=== PATIENT | male | born 1955 | race American Indian/Alaskan Native ===

== ENCOUNTER 2020-08-12 23:07 | Inpatient (IN) | payer MEDICAID ==
[2020-08-12] MEDS ORDERED: dilTIAZem 25 MG/5 ML INJ IV ONE (23:22)
[2020-08-12] MEDS ORDERED: SODIUM CHLORIDE 0.9% 1000 ML 1,000 ML IV ONE (23:25)
--- NOTE | 2020-08-12 23:27 | Emergency Department Report ---
ED Chest Pain HPI - General Chief Complaint: Chest Pain Stated Complaint: HYPOTENSION/HYPROGLYCEMIA/CHEST PAIN PUI?: No Time Seen by Provider: 08/12/20 23:07 Source: patient, EMS, RN notes reviewed Mode of arrival: Ambulatory Limitations: No Limitations - History of Present Illness Initial Comments: Patient is a 65-year-old male who presents emergency room with complaints of shortness of breath and chest pain. Patient states his symptoms started yesterday. Patient states his chest pain and shortness of breath are better wi th rest and worse with exertion. Patient states he has a history of an NC. Patient states the chest pain is in the center of his chest. Patient states the chest pain is nonradiating. He states the chest pain is a 6 out of 10. Patient was brought in by EMS. Report received from EMS. EMS states that the patient was found to be hypotensive and tachycardic and hypoglycemia. Patient was given fluids and his blood pressure improved. Patient was given oral glucose and D50 and his sugar improved. Patient denies recent travel. Patient denies recent international travel. Patient denies exposure to the novel coronavirus. Patient denies sick contacts. Patient denies fever and chills. Patient denies cough. Patient denies diarrhea. Patient denies coming in contact with anybody with symptoms of the novel coronavirus. MD Complaint: chest pain -: Sudden Onset: during rest Pain Location: substernal, left chest Pain Radiation: none Severity scale (0 -10): 6 Quality: sharp Consistency: constant Improves With: rest Worsens With: exertion re: dyspnea. denies: nausea, vomting, diaphoresis, sense of impending doom Other Symptoms: denies: cough, fever, syncope, rash, acid taste in mouth, leg swelling, palpitations, burping Treatments Prior to Arrival: aspirin, nitroglycerin, other (Fluids and oral glucose) Aspirin use within the Past 7 Days: (1) Yes - Related Data On Oral Contraceptives: No Allergies Allergy/AdvReac Type Severity Reaction Status Date / Time No Known Allergies Allergy Unverified 08/12/20 23:21 Heart Score - HEART Score History: Highly suspicious EKG: Non-specific Age: 45-65 Risk factors: > 3 risk factors or hx of atherosclerotic disease Troponin: > 3x normal limit HEART Score: 8 ED Review of Systems ROS: Stated complaint: HYPOTENSION/HYPROGLYCEMIA/CHEST PAIN Other details as noted in HPI Constitutional: denies: chills, fever Eyes: denies: eye pain, eye discharge, vision change ENT: denies: ear pain, throat pain Respiratory: shortness of breath, SOB with exertion, SOB at rest. denies: cough, wheezing Cardiovascular: chest pain. denies: palpitations Endocrine: no symptoms reported Gastrointestinal: denies: abdominal pain, nausea, diarrhea Genitourinary: denies: urgency, dysuria Musculoskeletal: denies: back pain, joint swelling, arthralgia Skin: denies: rash, lesions Neurological: denies: headache, weakness, paresthesias Psychiatric: denies: anxiety, depression Hematological/Lymphatic: denies: easy bleeding, easy bruising ED Past Medical Hx - Past Medical History Previous Medical History?: Yes Hx Hypertension: Yes Hx Heart Attack/AMI: Yes Hx Congestive Heart Failure: Yes Hx Diabetes: No Hx Renal Disease: Yes (esrd) - Surgical History Past Surgical History?: Yes Additional Surgical History: Dialysis fistula - Family History Family history: no significant - Social History Smoking Status: Former Smoker Substance Use Type: None ED Physical Exam - General Limitations: No Limitations General appearance: alert, in distress - Head Head exam: Present: atraumatic, normocephalic - Eye Eye exam: Present: normal appearance, PERRL Pupils: Present: normal accommodation - ENT ENT exam: Present: mucous membranes moist - Neck Neck exam: Present: normal inspection - Respiratory Respiratory exam: Present: respiratory distress, accessory muscle use, decreased breath sounds. Absent: wheezes, rales - Cardiovascular Cardiovascular Exam: Present: regular rate, normal rhythm. Absent: systolic murmur, diastolic murmur, rubs, gallop - GI/Abdominal GI/Abdominal exam: Present: soft, normal bowel sounds. Absent: distended, tenderness, guarding - Rectal Rectal exam: Present: deferred - Extremities Exam Extremities exam: Present: normal inspection - Back Exam Back exam: Present: normal inspection - Neurological Exam Neurological exam: Present: alert, oriented X3 - Psychiatric Psychiatric exam: Present: normal affect, normal mood - Skin Skin exam: Present: warm, dry, intact, normal color. Absent: rash ED Course Vital Signs 08/12/20 08/12/20 08/12/20 23:08 23:19 23:21 Temperature 98.2 F Pulse Rate 149 H 125 H Respiratory 32 H 31 H Rate Blood Pressure O2 Sat by Pulse 94 Oximetry 08/12/20 08/12/20 08/13/20 23:22 23:28 01:03 Temperature Pulse Rate 139 H 130 H 112 H Respiratory 34 H Rate Blood Pressure 100/47 100/47 97/58 O2 Sat by Pulse 91 Oximetry - Reevaluation(s) Reevaluation #1: Initial evaluation done. Report received from EMS. EMS states they gave the patient 200 cc of fluid and his blood pressure got better. Patient is currently in A. fib RVR on the hay sorter. Patient will be given Cardizem drip and a Cardizem push. Patient found to be hypoxic. Patient placed on oxygen. Patient's blood pressure 100/80. 08/12/20 23:07 Reevaluation #2: Patient became hypotensive after Cardizem push.. Patient's started on fluids. Patient's heart rate normalized. Patient is currently 75 to 85 bpm. Patient's hypoxia has resolved with 3 L of oxygen. Patient's blood pressure is slowly improving 08/12/20 23:17 Reevaluation #3: Patient states he is chest pain-free. Patient dates he is feeling better. 08/12/20 23:38 Patient's blood pressure is decreasing again. Patient will be placed on peripheral Levophed. Patient said fluids will be given to him slowly due to his history of kidney disease and renal failure and dialysis and CHF. 08/12/20 23:45 Patient's blood pressure has improved. Patient is having increased work of breathing. Patient will be placed on BiPAP. 08/13/20 00:07 Reevaluation #4: Patient is on BiPAP and patient's oxygen is better. Patient's breathing is better. Patient's work to breathe has resolved. Patient's blood pressure is stabilizing and patient's current map is 70. Patient heart rate is 90-100. 08/13/20 00:36 Reevaluation #5: Patient's A. fib RVR came back and the patient was placed on a low-dose of Cardizem and the heart rate responded well. Patient's blood pressure still shows a map of 69. Patient will be started on maintenance fluids. 08/13/20 01:17 Patient given 100 cc of fluid and the patient's map is 72. Patient has a Levophed order on hold. His heart rate is better. I discussed all results with patient. I discussed plan of care with patient. Patient agrees with plan of care and admission. Patient to be admitted to the hospitalist service. 08/13/20 01:40 Patient on maintenance fluid and the patient's blood pressures 99/61. Patient is still on Cardizem 5 mg drip. Patient's oxygen is stable. Patient's work to breathe has decreased. 08/13/20 01:57 - Consultations Consultation #1: Hospitalist consulted for admission. Hospitalist to admit patient. 08/13/20 01:41 IDALIA score - Idalia Score Age > 65: (0) No Aspirin use within the Past 7 Days: (1) Yes 3 or more CAD Risk Factors: (1) Yes 2 or more Angina events in past 24 hrs: (1) Yes Known CAD with more than 50% Stenosis: (0) No Elevated Cardiac Markers: (1) Yes ST Deviation Greater than 0.5mm: (0) No IDALIA Score: 4 ED Medical Decision Making - Lab Data Result diagrams: 08/13/20 00:04 08/13/20 00:04 - EKG Data -: EKG Interpreted by Vt EKG shows normal: intervals, QRS complexes, ST-T waves Rate: tachycardia - EKG Data Interpretation: LVH, other (Atrophic, axis deviation, LVH) - Radiology Data Radiology results: report reviewed CHEST 1 VIEW INDICATION / CLINICAL INFORMATION: Chest Pain. COMPARISON: None available. FINDINGS: SUPPORT DEVICES: None. HEART / MEDIASTINUM: There is prominence of the cardiac silhouette. Atherosclerotic calcifications are noted in the aortic arch LUNGS / PLEURA: There is airspace consolidation in the left mid and lower lung zone. There appears to be left pleural effusion as well. There is mild patchy airspace opacity in the right lung base. No pneumothorax. ADDITIONAL FINDINGS: No significant additional findings. IMPRESSION: 1. There is airspace consolidation in the left mid and lower lung zone with probable small left effusion. There is mild patchy airspace opacity in the right base. The appearance is most concerning for pneumonia. Short-term follow-up radiographs are recommended to ensure clearing of the lungs. - Medical Decision Making Patient is a 65-year-old male that presents emergency room with complaints of chest pain, shortness of breath. Patient brought in by EMS. EMS found the patient to be hypotensive, hypoglycemic. Patient given fluids and the patient's blood pressure responded well. Patient was given nitro by EMS, aspirin, fluids, glucose. Patient's glucose improved. Upon initial evaluation, patient found to be hypoxic, hypotensive, A. fib RVR. Patient given fluids and placed on oxygen. Patient's blood pressure eventually improved however the patient's work to breathe respiratory distress increased and the patient was placed on BiPAP. Patient responded well to BiPAP. Patient was given 500 cc of fluids by EMS and then given a liter of fluid here. Patient was then started on a second liter of fluid here and will be given slowly since the patient has a history of CHF and end-stage renal disease. Patient given antibiotics early in the ER course. . - Differential Diagnosis Pneumonia, sepsis, hypoxia, hypotension, chest pain, ACS, SOB Critical Care Time: Yes Critical care time in (mins) excluding proc time.: 80 Critical care attestation.: If time is entered above; I have spent that time in minutes in the direct care of this critically ill patient, excluding procedure time. Critical Care Time: 80 minutes ED Disposition Clinical Impression: Hypoxia, SOB (shortness of breath), Atrial fibrillation with RVR, Hypoglycemia, ESRD (end stage renal disease) on dialysis, Lactic acid acidosis, Elevated troponin Respiratory failure Qualifiers: Chronicity: acute Respiratory failure complication: hypoxia Qualified Code(s): J96.01 - Acute respiratory failure with hypoxia Pneumonia Qualifiers: Pneumonia type: due to unspecified organism Laterality: unspecified laterality Lung location: unspecified part of lung Qualified Code(s): J18.9 - Pneumonia, unspecified organism Chest pain Qualifiers: Chest pain type: unspecified Qualified Code(s): R07.9 - Chest pain, unspecified Hypotension Qualifiers: Hypotension type: unspecified hypotension type Qualified Code(s): I95.9 - Hypotension, unspecified Sepsis Qualifiers: Sepsis type: sepsis due to unspecified organism Sepsis acute organ dysfunction status: with acute organ dysfunction Severe sepsis acute organ dysfunction type: acute respiratory failure Acute respiratory failure type: with hypoxia Severe sepsis shock status: without septic shock Qualified Code(s): A41.9 - Sepsis, unspecified organism Disposition: OP ADMIT IP TO THIS HOSP Is pt being admited?: Yes Does the pt Need Aspirin: No Condition: Critical Time of Disposition: :23
[2020-08-12] MEDS ORDERED: NORepinephrine/NS 4 MG-250 ML 4 MG/250 ML BAG IV SCH (23:45)
[2020-08-12] MEDS ORDERED: dilTIAZem/D5W 100 MG/100 ML BAG IV SCH (23:45)
[2020-08-13] MEDS ORDERED: CEFEPIME/NS 2 GM/100 ML 2 GM/100 ML BAG IV ONE (00:07)
[2020-08-13 00:24] LABS: Hematocrit 35.6 % (35.5-45.6); Mean Corpuscular HGB Conc 34 % (32-34); Mean Corpuscular Volume 99 fl (84-94); Red Blood Count 3.59 M/mm3 (3.65-5.03); Red Cell Distribution Width 16.8 % (13.2-15.2)
--- NOTE | 2020-08-13 00:26 | XRay Report ---
CHEST 1 VIEW INDICATION / CLINICAL INFORMATION: Chest Pain. COMPARISON: None available. FINDINGS: SUPPORT DEVICES: None. HEART / MEDIASTINUM: There is prominence of the cardiac silhouette. Atherosclerotic calcifications ar e noted in the aortic arch LUNGS / PLEURA: There is airspace consolidation in the left mid and lower lung zone. There appears to be left pleural effusion as well. There is mild patchy airspace opacity in the right lung base. No p neumothorax. ADDITIONAL FINDINGS: No significant additional findings. IMPRESSION: 1. There is airspace consolidation in the left mid and lower lung zone with probable small left effus ion. There is mild patchy airspace opacity in the right base. The appearance is most concerning for p neumonia. Short-term follow-up radiographs are recommended to ensure clearing of the lungs. Signer Name: Adiel Castillo MD Signed: 08/13/2020 12:21 AM Workstation Name: [id number]
[2020-08-13 00:29] LABS: Platelet Count 84 K/mm3 (140-440)
[2020-08-13 00:43] LABS: Albumin 3.3 g/dL (3.9-5); Calcium 8.5 mg/dL (8.4-10.2)
[2020-08-13] MEDS ORDERED: SODIUM CHLORIDE 0.9% 500 ML 500 ML IV ONE (01:22)
[2020-08-13] MEDS ORDERED: SODIUM CHLORIDE 0.9% 1000 ML 1,000 ML IV ONE (01:22)
[2020-08-13] MEDS ORDERED: ONDANSETRON 4 MG/2 ML INJ IV PRN (02:14)
[2020-08-13] MEDS ORDERED: MORPHINE 2 MG/1 ML INJ IV PRN ×2 (02:14→06:46)
[2020-08-13] MEDS ORDERED: MAGNESIUM HYDROXIDE (MOM) ORAL LIQD UDC PO PRN (02:14)
[2020-08-13] MEDS ORDERED: SODIUM CHLORIDE 0.9% 1000 ML 1,000 ML IV SCH ×2 (02:15→04:00)
[2020-08-13] MEDS ORDERED: DEXTROSE 50% IN WATER (25GM) 50 ML SYRINGE IV ONE ×2 (02:23→02:26)
--- NOTE | 2020-08-13 02:24 | History and Physical Report ---
History of Present Illness Date of examination: 08/13/20 Date of admission: 08/13/20 01:43 Chief complaint: Chest Pain Shortness of Breath History of present illness: 65-year-old male with known history of CHF, end-stage renal disease on dialysis, coronary artery disease and hypertension presenting to the emergency room via EMS today with chest pain and shortness of breath which started within the last 24 hours. Chest pain is said to be substernal and nonradiating. On a scale of 10 pain was about 6/10 in severity. No no relieving or exacerbating factor. Upon arrival in the emergency room patient was found to be hypoxic, hypotensive, hypoglycemic and tachycardic. Patient was given some IV fluid and placed on BiPAP with some improvement in her breathing and blood pressure. Evaluation in the emergency room reveals atrial fibrillation with RVR, pneumonia on the chest x-ray. Patient was started on Cardizem drip for his arrhythmia. Past History Past Medical History: CAD, dialysis, ESRD, heart failure, hypertension Past Surgical History: Other (A-V fistula placement) Social history: smoking (Former Smoker) Family history: no significant family history Medications and Allergies Allergies Allergy/AdvReac Type Severity Reaction Status Date / Time No Known Allergies Allergy Unverified 08/12/20 23:21 Active Meds: Active Medications Diltiazem HCl (Cardizem/D5w 100mg/100ml) 100 mg in 100 mls @ 5 mls/hr IV TITR AMALIA; Protocol Last Admin: 08/13/20 01:03 Dose: 5 mg/hr, 5 mls/hr Documented by: Norepinephrine (Levophed Drip 4 Mg/Ns 250 Ml) 4 mg in 250 mls @ 7.5 mls/hr IV TITR AMALIA; Protocol Sodium Chloride (Nacl 0.9% 1000 Ml) 1,000 mls @ 250 mls/hr IV ONCE ONE Stop: 08/13/20 05:21 Last Admin: 08/13/20 02:02 Dose: 250 mls/hr Documented by: Review of Systems Constitutional: no fever, no chills Ears, nose, mouth and throat: no nasal congestion, no sore throat Cardiovascular: chest pain, no palpitations Respiratory: shortness of breath, no cough Gastrointestinal: no abdominal pain, no nausea, no vomiting, no diarrhea Genitourinary Male: no dysuria, no hematuria, no nocturia Musculoskeletal: no neck pain, no low back pain Integumentary: no rash, no pruritis Neurological: no headaches, no confusion Psychiatric: no anxiety, no depression Exam - Constitutional Vitals: Temp Pulse Resp BP Pulse Ox 98.2 F 92 H 26 H 101/66 100 08/12/20 23:08 08/13/20 02:00 08/13/20 02:00 08/13/20 02:00 08/13/20 01:45 General appearance: Present: mild distress, well-nourished - EENT Eyes: Present: PERRL, EOM intact. Absent: scleral icterus ENT: hearing intact, clear oral mucosa, dentition normal - Neck Neck: Present: supple, normal ROM - Respiratory Respiratory effort: normal Respiratory: bilateral: diminished - Cardiovascular Rhythm: irregularly irregular Heart Sounds: Present: S1 & S2. Absent: gallop, systolic murmur, diastolic murmur, rub - Extremities Extremities: no ischemia, pulses intact, pulses symmetrical, No edema, Full ROM Peripheral Pulses: within normal limits - Abdominal General gastrointestinal: Present: soft, non-tender, non-distended, normal bowel sounds. Absent: mass - Integumentary Integumentary: Present: clear, warm, dry. Absent: rash - Musculoskeletal Musculoskeletal: strength equal bilaterally - Psychiatric Psychiatric: appropriate mood/affect, intact judgment & insight, memory intact, cooperative - Neurologic Neurologic: CNII-XII intact, no focal deficits, moves all extremities HEART Score - HEART Score EKG: Non-specific Age: 45-65 Risk factors: > 3 risk factors or hx of atherosclerotic disease Troponin: Troponin T 0.049 ng/mL (0.00-0.029) H 08/13/20 00:04 Troponin: > 3x normal limit Results - Labs CBC & Chem 7: 08/13/20 00:04 08/13/20 00:04 Labs: Abnormal lab results 08/13/20 08/13/20 08/13/20 Range/Units 00:04 00:04 00:04 RBC 3.59 L (3.65-5.03) M/mm3 MCV 99 H (84-94) fl MCH 33 H (28-32) pg RDW 16.8 H (13.2-15.2) % Plt Count 84 L (140-440) K/mm3 Chloride 95.1 L (98-107) mmol/L Carbon Dioxide 18 L (22-30) mmol/L BUN 44 H (9-20) mg/dL Creatinine 7.0 H (0.8-1.3) mg/dL Glucose 66 L (75-100) mg/dL POC Glucose (70-105) Lactic Acid (0.7-2.0) mmol/L Alkaline Phosphatase 34 L (35-129) units/L Troponin T 0.049 H (0.00-0.029) ng/mL NT-Pro-B Natriuret Pep 85895 H (0-900) pg/mL Albumin 3.3 L (3.9-5) g/dL 08/13/20 08/13/20 Range/Units 00:04 02:32 RBC (3.65-5.03) M/mm3 MCV (84-94) fl MCH (28-32) pg RDW (13.2-15.2) % Plt Count (140-440) K/mm3 Chloride (98-107) mmol/L Carbon Dioxide (22-30) mmol/L BUN (9-20) mg/dL Creatinine (0.8-1.3) mg/dL Glucose (75-100) mg/dL POC Glucose 65 L (70-105) Lactic Acid 6.10 H* (0.7-2.0) mmol/L Alkaline Phosphatase (35-129) units/L Troponin T (0.00-0.029) ng/mL NT-Pro-B Natriuret Pep (0-900) pg/mL Albumin (3.9-5) g/dL Assessment and Plan - Patient Problems (1) Respiratory failure Current Visit: Yes Status: Acute Qualifiers: Chronicity: acute Respiratory failure complication: hypoxia Qualified Code(s): J96.01 - Acute respiratory failure with hypoxia Plan to address problem: Possibly secondary to the underlying pneumonia. Patient commenced on empiric IV antibiotics. We will keep O2 saturation greater or equal to 92%. We will place consult to air hose coupler for evaluation. (2) Atrial fibrillation with RVR Current Visit: Yes Status: Acute Plan to address problem: Patient currently on Cardizem drip. Will titrate according to protocol. We will request cardiology evaluation. (3) ESRD (end stage renal disease) on dialysis Current Visit: Yes Status: Acute Plan to address problem: Patient gets dialysis on Mondays, Wednesdays and Fridays. We will place a consult to nephrology for evaluation during this admission. (4) Hypotension Current Visit: Yes Status: Acute Qualifiers: Hypotension type: unspecified hypotension type Qualified Code(s): I95.9 - Hypotension, unspecified Plan to address problem: Secondary to severe sepsis. Patient placed on IV fluid. We will consider pressors if needed needed (5) Sepsis Current Visit: Yes Status: Acute Qualifiers: Sepsis type: sepsis due to unspecified organism Sepsis acute organ dysfunction status: with acute organ dysfunction Severe sepsis acute organ dysfunction type: acute respiratory failure Acute respiratory failure type: with hypoxia Severe sepsis shock status: without septic shock Qualified Code(s): A41.9 - Sepsis, unspecified organism; R65.20 - Severe sepsis without septic shock; J96.01 - Acute respiratory failure with hypoxia Plan to address problem: Secondary to pneumonia. We will continue IV fluid and empiric IV antibiotics. (6) Chest pain Current Visit: Yes Status: Acute Qualifiers: Chest pain type: unspecified Qualified Code(s): R07.9 - Chest pain, unspecified Plan to address problem: We will check serial cardiac enzymes. Patient will be placed on aspirin, sublingual nitroglycerin and IV morphine as needed for chest pain. We will place consult to cardiology for further evaluation and recommendation. (7) DVT prophylaxis Current Visit: Yes Status: Acute (8) Full code status Current Visit: Yes Status: Acute
[2020-08-13 02:48] LABS: Chol/HDL Ratio 1.62 %
[2020-08-13 03:24] LABS: Band Neutrophils # (Manual) 0.6 K/mm3; Basophils % (Manual) 0 % (0.0-1.8); Eosinophils % (Manual) 0 % (0.0-4.3); Total Cells Counted 100
[2020-08-13 03:25] LABS: Anisocytosis 1+; Ovalocytes 1+
[2020-08-13 03:27] LABS: Platelet Estimate Consistent w Auto
[2020-08-13] MEDS ORDERED: CEFEPIME/NS 2 GM/100 ML 2 GM/100 ML BAG IV SCH (06:00)
[2020-08-13] MEDS ORDERED: HEPARIN 5,000 UNIT/1 ML VIAL SUB-Q SCH (06:00)
[2020-08-13] MEDS ORDERED: NITROGLYCERIN 0.4 MG TAB SUBL SL PRN (06:46)
[2020-08-13 09:29] LABS: Hematocrit 36.4 % (35.5-45.6); Hemoglobin 11.8 gm/dl (11.8-15.2); Mean Corpuscular HGB Conc 32 % (32-34); Mean Corpuscular Volume 105 fl (84-94); Red Blood Count 3.47 M/mm3 (3.65-5.03); Red Cell Distribution Width 17.8 % (13.2-15.2)
--- NOTE | 2020-08-13 09:29 | Consultation ---
History of Present Illness Consult date: 08/13/20 Consult reason: atrial fibrillation History of present illness: Patient is lying in bed this morning, having breakfast. Patient denies chest pain. Patient reports shortness of breath and productive cough. Patient is known ESRD on HD. Tele showing atrial flutter with 2:1 AV conduction. Admission ECG revealing atrial fibrillation with HR 110. Patient is currently on OV diltiazem at 5 mg/hr. Patient under respiratory precautions due to Covid 19 PUI - results are pending. Patient therefore was not examined. Past History Past Medical History: CAD, dialysis, ESRD, heart failure, hypertension Past Surgical History: Other (A-V fistula placement) Social history: smoking (Former Smoker) Family history: no significant family history Medications and Allergies Allergies Allergy/AdvReac Type Severity Reaction Status Date / Time No Known Allergies Allergy Unverified 08/12/20 23:21 Active Meds: Active Medications Acetaminophen (Tylenol) 650 mg PO Q6H PRN PRN Reason: Pain, Mild (1-3) Aspirin (Ecotrin) 325 mg PO QDAY AMALIA Heparin Sodium (Porcine) (Heparin) 5,000 unit SUB-Q Q8HR AMALIA Last Admin: 08/13/20 08:37 Dose: 5,000 unit Documented by: Diltiazem HCl (Cardizem/D5w 100mg/100ml) 100 mg in 100 mls @ 5 mls/hr IV TITR AMALIA; Protocol Last Admin: 08/13/20 01:03 Dose: 5 mg/hr, 5 mls/hr Documented by: Norepinephrine (Levophed Drip 4 Mg/Ns 250 Ml) 4 mg in 250 mls @ 7.5 mls/hr IV TITR AMALIA; Protocol Sodium Chloride (Nacl 0.9% 1000 Ml) 1,000 mls @ 75 mls/hr IV DIRECT AMALIA Cefepime HCl (Cefepime/Ns 1 Gm/100 Ml) 1 gm in 100 mls @ 200 mls/hr IV Q24HR AMALIA Sodium Chloride (Nacl 0.9% 1000 Ml) 1,000 mls @ 125 mls/hr IV DIRECT AMALIA Magnesium Hydroxide (Milk Of Magnesia) 30 ml PO Q4H PRN PRN Reason: Constipation Morphine Sulfate (Morphine) 2 mg IV Q4H PRN PRN Reason: Pain, Moderate (4-6) Morphine Sulfate (Morphine) 2 mg IV Q5MIN PRN PRN Reason: Chest Pain Nitroglycerin (Nitrostat) 0.4 mg SL Q5M PRN PRN Reason: Chest Pain Ondansetron HCl (Zofran) 4 mg IV Q8H PRN PRN Reason: Nausea And Vomiting Pneumococcal Polyvalent Vaccine (Pneumovax 23) 0.5 ml IM .ONCE ONE Stop: 08/13/20 12:01 Sodium Chloride (Sodium Chloride Flush Syringe 10 Ml) 10 ml IV BID AMALIA Sodium Chloride (Sodium Chloride Flush Syringe 10 Ml) 10 ml IV PRN PRN PRN Reason: LINE FLUSH Review of Systems All systems: negative Physical Examination Vital Signs Temp 98.2 F 08/12/20 23:08 General appearance: no acute distress Results 08/13/20 00:04 08/13/20 00:04 Cardiac Enzymes 08/13/20 Range/Units 00:04 AST 24 (5-40) units/L Coagulation 08/13/20 Range/Units 00:04 APTT 35.7 (24.2-36.6) Sec. Lipids 08/13/20 Range/Units 00:04 Triglycerides 99 (2-149) mg/dL Cholesterol 83 (50-199) mg/dL HDL Cholesterol 51 (40-59) mg/dL Cholesterol/HDL Ratio 1.62 % CBC 08/13/20 Range/Units 00:04 WBC 6.3 (4.5-11.0) K/mm3 RBC 3.59 L (3.65-5.03) M/mm3 Hgb 12.0 (11.8-15.2) gm/dl Hct 35.6 (35.5-45.6) % Plt Count 84 L (140-440) K/mm3 Comprehensive Metabolic Panel 08/13/20 Range/Units 00:04 Sodium 137 (137-145) mmol/L Potassium 3.7 (3.6-5.0) mmol/L Chloride 95.1 L (98-107) mmol/L Carbon Dioxide 18 L (22-30) mmol/L BUN 44 H (9-20) mg/dL Creatinine 7.0 H (0.8-1.3) mg/dL Glucose 66 L (75-100) mg/dL Calcium 8.5 (8.4-10.2) mg/dL AST 24 (5-40) units/L ALT 11 (7-56) units/L Alkaline Phosphatase 34 L (35-129) units/L Total Protein 7.6 (6.3-8.2) g/dL Albumin 3.3 L (3.9-5) g/dL - EKG Interpretation EKG shows: atrial fibrillation EKG interpretations - Telemetry EKG Rhythm: Atrial Fibrillation Assessment and Plan Severe septic shock Lactic acidosis Pneumonia Covid 19 pending ESRD on HD Non-specific troponin No ischemic ECG changes Essential primary hypertension Recommendations: Continue rate control Change IV diltiazem to po Initiate anticoagulation with IV heparin and later on transition to po eliquis if no invasive procedures are planned or needed Follow-up Covid 19 testing
[2020-08-13 09:32] LABS: Platelet Count 72 K/mm3 (140-440)
[2020-08-13 09:42] LABS: C-Reactive Protein 28.7 mg/dL (0.00-1.30)
[2020-08-13] MEDS: CEFEPIME/NS 1 GM/100 ML 1 GM/100 ML BAG IV SCH (09:47)
--- NOTE | 2020-08-13 09:51 | Progress Note ---
Assessment and Plan Assessment and plan: This is a follow-up from an admission earlier this morning. Continue rate control with IV Cardizem. Cardiology following. Patient will be initiated on anticoagulation with IV heparin and transition to p.o. Eliquis. Follow-up COVID-19 testing total visit time equals 35 minutes with greater than 50% spent on coordination of care and counseling History Interval history: No new issues overnight. Hospitalist Physical - Constitutional Vitals: Temp Pulse Resp BP Pulse Ox 97.6 F 103 H 33 H 119/75 91 08/13/20 07:42 08/13/20 09:20 08/13/20 09:20 08/13/20 09:20 08/13/20 09:20 General appearance: Present: no acute distress - EENT Eyes: Present: PERRL, EOM intact ENT: hearing intact, clear oral mucosa, dentition normal - Neck Neck: Present: supple, normal ROM - Respiratory Respiratory effort: normal Respiratory: bilateral: CTA - Cardiovascular Rhythm: regular Heart Sounds: Present: S1 & S2. Absent: gallop, rub - Extremities Extremities: no ischemia, No edema, Full ROM - Abdominal General gastrointestinal: soft, non-tender, non-distended, normal bowel sounds - Integumentary Integumentary: Present: clear, warm, dry - Neurologic Neurologic: CNII-XII intact, moves all extremities HEART Score - HEART Score EKG: Non-specific Age: 45-65 Risk factors: > 3 risk factors or hx of atherosclerotic disease Troponin: Troponin T 0.057 ng/mL (0.00-0.029) H D 08/13/20 06:14 Troponin: > 3x normal limit Results - Labs CBC & Chem 7: 08/13/20 08:41 08/13/20 08:41 Labs: Laboratory Last Values WBC 5.4 K/mm3 (4.5-11.0) 08/13/20 08:41 RBC 3.47 M/mm3 (3.65-5.03) L 08/13/20 08:41 Hgb 11.8 gm/dl (11.8-15.2) 08/13/20 08:41 Hct 36.4 % (35.5-45.6) 08/13/20 08:41 MCV 105 fl (84-94) H 08/13/20 08:41 MCH 34 pg (28-32) H 08/13/20 08:41 MCHC 32 % (32-34) 08/13/20 08:41 RDW 17.8 % (13.2-15.2) H 08/13/20 08:41 Plt Count 72 K/mm3 (140-440) L 08/13/20 08:41 Add Manual Diff Complete 08/13/20 00:04 Total Counted 100 08/13/20 00:04 Seg Neutrophils % [employer] D[employer] Mixer 08/13/20 08:41 Seg Neuts % (Manual) 84.0 % (40.0-70.0) H 08/13/20 00:04 Band Neutrophils % 10.0 % 08/13/20 00:04 Lymphocytes % (Manual) 2.0 % (13.4-35.0) L 08/13/20 00:04 Reactive Lymphs % (Man) 0 % 08/13/20 00:04 Monocytes % (Manual) 4.0 % (0.0-7.3) 08/13/20 00:04 Eosinophils % (Manual) 0 % (0.0-4.3) 08/13/20 00:04 Basophils % (Manual) 0 % (0.0-1.8) 08/13/20 00:04 Metamyelocytes % 0 % 08/13/20 00:04 Myelocytes % 0 % 08/13/20 00:04 Promyelocytes % 0 % 08/13/20 00:04 Blast Cells % 0 % 08/13/20 00:04 Nucleated RBC % Not Reportable 08/13/20 00:04 Seg Neutrophils # Man 5.3 K/mm3 (1.8-7.7) 08/13/20 00:04 Band Neutrophils # 0.6 K/mm3 08/13/20 00:04 Lymphocytes # (Manual) 0.1 K/mm3 (1.2-5.4) L 08/13/20 00:04 Abs React Lymphs (Man) 0.0 K/mm3 08/13/20 00:04 Monocytes # (Manual) 0.3 K/mm3 (0.0-0.8) 08/13/20 00:04 Eosinophils # (Manual) 0.0 K/mm3 (0.0-0.4) 08/13/20 00:04 Basophils # (Manual) 0.0 K/mm3 (0.0-0.1) 08/13/20 00:04 Metamyelocytes # 0.0 K/mm3 08/13/20 00:04 Myelocytes # 0.0 K/mm3 08/13/20 00:04 Promyelocytes # 0.0 K/mm3 08/13/20 00:04 Blast Cells # 0.0 K/mm3 08/13/20 00:04 WBC Morphology Not Reportable 08/13/20 00:04 Hypersegmented Neuts Not Reportable 08/13/20 00:04 Hyposegmented Neuts Not Reportable 08/13/20 00:04 Hypogranular Neuts Not Reportable 08/13/20 00:04 Smudge Cells Not Reportable 08/13/20 00:04 Toxic Granulation Not Reportable 08/13/20 00:04 Toxic Vacuolation Not Reportable 08/13/20 00:04 Dohle Bodies Not Reportable 08/13/20 00:04 Pelger-Huet Anomaly Not Reportable 08/13/20 00:04 Elian Rods Not Reportable 08/13/20 00:04 Platelet Estimate Consistent w auto 08/13/20 00:04 Clumped Platelets Not Reportable 08/13/20 00:04 Plt Clumps, EDTA Not Reportable 08/13/20 00:04 Large Platelets Not Reportable 08/13/20 00:04 Giant Platelets Not Reportable 08/13/20 00:04 Platelet Satelliting Not Reportable 08/13/20 00:04 Plt Morphology Comment Not Reportable 08/13/20 00:04 RBC Morphology Not Reportable 08/13/20 00:04 Dimorphic RBCs Not Reportable 08/13/20 00:04 Polychromasia Not Reportable 08/13/20 00:04 Hypochromasia Not Reportable 08/13/20 00:04 Poikilocytosis Not Reportable 08/13/20 00:04 Anisocytosis 1+ 08/13/20 00:04 Microcytosis Not Reportable 08/13/20 00:04 Macrocytosis Not Reportable 08/13/20 00:04 Spherocytes Not Reportable 08/13/20 00:04 Pappenheimer Bodies Not Reportable 08/13/20 00:04 Sickle Cells Not Reportable 08/13/20 00:04 Target Cells Not Reportable 08/13/20 00:04 Tear Drop Cells Not Reportable 08/13/20 00:04 Ovalocytes 1+ 08/13/20 00:04 Helmet Cells Not Reportable 08/13/20 00:04 [place]-Busby Bodies Not Reportable 08/13/20 00:04 [place] Rings Not Reportable 08/13/20 00:04 [place] Cells Not Reportable 08/13/20 00:04 Bite Cells Not Reportable 08/13/20 00:04 Crenated Cell Not Reportable 08/13/20 00:04 Elliptocytes Not Reportable 08/13/20 00:04 Acanthocytes (Spur) Not Reportable 08/13/20 00:04 Rouleaux Not Reportable 08/13/20 00:04 Hemoglobin C Crystals Not Reportable 08/13/20 00:04 Schistocytes Not Reportable 08/13/20 00:04 Malaria parasites Not Reportable 08/13/20 00:04 Raza Bodies Not Reportable 08/13/20 00:04 Hem Pathologist Commnt No 08/13/20 00:04 APTT 35.7 Sec. (24.2-36.6) 08/13/20 00:04 D-Dimer 1557.08 ng/mlDDU (0-234) H 08/13/20 08:41 Sodium 139 mmol/L (137-145) 08/13/20 08:41 Potassium 4.5 mmol/L (3.6-5.0) D 08/13/20 08:41 Chloride 103.2 mmol/L (98-107) 08/13/20 08:41 Carbon Dioxide 19 mmol/L (22-30) L 08/13/20 08:41 Anion Gap 21 mmol/L 08/13/20 08:41 BUN 49 mg/dL (9-20) H 08/13/20 08:41 Creatinine 6.9 mg/dL (0.8-1.3) H 08/13/20 08:41 Estimated GFR 10 ml/min 08/13/20 08:41 BUN/Creatinine Ratio 7 % 08/13/20 08:41 Glucose 65 mg/dL (75-100) L 08/13/20 08:41 POC Glucose 116 (70-105) H 08/13/20 03:51 Lactic Acid 6.40 mmol/L (0.7-2.0) H* 08/13/20 06:14 Calcium 8.0 mg/dL (8.4-10.2) L 08/13/20 08:41 Total Bilirubin 0.80 mg/dL (0.1-1.2) 08/13/20 00:04 AST 24 units/L (5-40) 08/13/20 00:04 ALT 11 units/L (7-56) 08/13/20 00:04 Alkaline Phosphatase 34 units/L (35-129) L 08/13/20 00:04 Lactate Dehydrogenase 154 units/L (91-180) 08/13/20 08:41 Troponin T 0.057 ng/mL (0.00-0.029) H D 08/13/20 06:14 C-Reactive Protein 28.70 mg/dL (0.00-1.30) H 08/13/20 08:41 NT-Pro-B Natriuret Pep 35985 pg/mL (0-900) H 08/13/20 00:04 Total Protein 7.6 g/dL (6.3-8.2) 08/13/20 00:04 Albumin 3.3 g/dL (3.9-5) L 08/13/20 00:04 Albumin/Globulin Ratio 0.8 % 08/13/20 00:04 Triglycerides 99 mg/dL (2-149) 08/13/20 00:04 Cholesterol 83 mg/dL (50-199) 08/13/20 00:04 LDL Cholesterol Direct 15 mg/dL (50-130) L 08/13/20 00:04 HDL Cholesterol 51 mg/dL (40-59) 08/13/20 00:04 Cholesterol/HDL Ratio 1.62 % 08/13/20 00:04 Microbiology: Microbiology 08/12/20 23:52 Peripheral/Venous Blood Culture - Preliminary Culture in Progress 08/13/20 00:04 Peripheral/Venous Blood Culture - Preliminary Culture in Progress Puente/IV: Voiding Method Urinal Active Medications - Current Medications Current Medications: Generic Name Dose Route Start Last Admin Trade Name Freq PRN Reason Stop Dose Admin Acetaminophen 650 mg 08/13/20 06:46 Tylenol PO Q6H PRN Pain, Mild (1-3) Aspirin 325 mg 08/14/20 10:00 Ecotrin PO QDAY AMALIA Diltiazem HCl 30 mg 08/13/20 12:00 Cardizem PO Q6HR AMALIA Heparin Sodium (Porcine) 2,800 unit 08/13/20 10:00 Heparin 10,000 Units/10 Ml 40 unit/kg (2800 unit) 08/13/20 12:00 IV ONCE AMALIA Norepinephrine 4 mg in 250 mls @ 7.5 mls/hr 08/12/20 23:45 Levophed Drip 4 Mg/Ns 250 Ml IV TITR [facility] Protocol 2 MCG/MIN Cefepime HCl 1 gm in 100 mls @ 200 mls/hr 08/13/20 10:00 08/13/20 09:47 Cefepime/Ns 1 Gm/100 Ml IV 200 mls/hr Q24HR AMALIA Administration Sodium Chloride 1,000 mls @ 125 mls/hr 08/13/20 04:00 Nacl 0.9% 1000 Ml IV DIRECT AMALIA Heparin Sodium/Sodium Chloride 25,000 unit in 500 mls @ 21 mls/hr 08/13/20 10:00 Heparin/ 0.45% Nacl-25,000 Unit/500 Ml IV TITR [facility] Protocol 1,050 UNITS/HR Magnesium Hydroxide 30 ml 08/13/20 02:14 Milk Of Magnesia PO Q4H PRN Constipation Morphine Sulfate 2 mg 08/13/20 02:14 Morphine IV Q4H PRN Pain, Moderate (4-6) Morphine Sulfate 2 mg 08/13/20 06:46 Morphine IV Q5MIN PRN Chest Pain Nitroglycerin 0.4 mg 08/13/20 06:46 Nitrostat SL Q5M PRN Chest Pain Ondansetron HCl 4 mg 08/13/20 02:14 Zofran IV Q8H PRN Nausea And Vomiting Pneumococcal Polyvalent Vaccine 0.5 ml 08/13/20 12:00 Pneumovax 23 IM 08/13/20 12:01 .ONCE ONE Sodium Chloride 10 ml 08/13/20 10:00 08/13/20 09:47 Sodium Chloride Flush Syringe 10 Ml IV 10 ml BID AMALIA Administration Sodium Chloride 10 ml 08/13/20 02:14 Sodium Chloride Flush Syringe 10 Ml IV PRN PRN LINE FLUSH
[2020-08-13] MEDS ORDERED: HEPARIN/ 0.45% NACL DRIP 25,000 UNIT/500 ML BAG IV SCH (10:00)
[2020-08-13] MEDS ORDERED: HEPARIN 10,000 UNITS/10 ML VIAL IV SCH (10:00)
[2020-08-13 10:33] LABS: INR 1.85 (0.87-1.13)
[2020-08-13 10:34] LABS: Partial Thromboplastin Time 41.7 Sec. (24.2-36.6)
[2020-08-13] MEDS ORDERED: SODIUM CHLORIDE 0.9% 100 ML IV PRN (10:48)
--- NOTE | 2020-08-13 10:50 | Consultation ---
History of Present Illness - Reason for Consult Consult date: 08/13/20 end stage renal disease - History of Present Illness Mr Corley is a 65 year old M with a PMH of ESRD on HD, HTN, CHF, CAD who has been admitted to the [facility] with Chest pain and SHOB. Pt was found to be hypoxic on admission. He also has had afib with RVR. He denies N/V, belly pain currently. He is on HD. ROS: As in HPI otherwise 12 point review of systems -ve Past History Past Medical History: CAD, dialysis, ESRD, heart failure, hypertension Past Surgical History: Other (A-V fistula placement) Social history: smoking (Former Smoker) Family history: no significant family history Medications and Allergies Allergies Allergy/AdvReac Type Severity Reaction Status Date / Time No Known Allergies Allergy Unverified 08/12/20 23:21 Active Meds: Active Medications Acetaminophen (Tylenol) 650 mg PO Q6H PRN PRN Reason: Pain, Mild (1-3) Aspirin (Ecotrin) 325 mg PO QDAY AMALIA Diltiazem HCl (Cardizem) 30 mg PO Q6HR [facility] Heparin Sodium (Porcine) (Heparin 10,000 Units/10 Ml) 2,800 unit 40 unit/kg (2800 unit) IV ONCE AMALIA Stop: 08/13/20 12:00 Norepinephrine (Levophed Drip 4 Mg/Ns 250 Ml) 4 mg in 250 mls @ 7.5 mls/hr IV TITR AMALIA; Protocol Cefepime HCl (Cefepime/Ns 1 Gm/100 Ml) 1 gm in 100 mls @ 200 mls/hr IV Q24HR [facility]ALIA Last Admin: 08/13/20 09:47 Dose: 200 mls/hr Documented by: Sodium Chloride (Nacl 0.9% 1000 Ml) 1,000 mls @ 125 mls/hr IV DIRECT AMALIA Heparin Sodium/Sodium Chloride (Heparin/ 0.45% Nacl-25,000 Unit/500 Ml) 25,000 unit in 500 mls @ 21 mls/hr IV TITR [facility]IA; Protocol Sodium Chloride (Nacl 0.9%) 100 mls @ 999 mls/hr IV KYLE PRN PRN Reason: Hypotension Magnesium Hydroxide (Milk Of Magnesia) 30 ml PO Q4H PRN PRN Reason: Constipation Morphine Sulfate (Morphine) 2 mg IV Q4H PRN PRN Reason: Pain, Moderate (4-6) Morphine Sulfate (Morphine) 2 mg IV Q5MIN PRN PRN Reason: Chest Pain Nitroglycerin (Nitrostat) 0.4 mg SL Q5M PRN PRN Reason: Chest Pain Ondansetron HCl (Zofran) 4 mg IV Q8H PRN PRN Reason: Nausea And Vomiting Pneumococcal Polyvalent Vaccine (Pneumovax 23) 0.5 ml IM .ONCE ONE Stop: 08/13/20 12:01 Sodium Chloride (Sodium Chloride Flush Syringe 10 Ml) 10 ml IV BID AMALIA Last Admin: 08/13/20 09:47 Dose: 10 ml Documented by: Sodium Chloride (Sodium Chloride Flush Syringe 10 Ml) 10 ml IV PRN PRN PRN Reason: LINE FLUSH Exam - Vital Signs Vital signs: Vital Signs Temp 98.2 F 08/12/20 23:08 - Physical Exam Narrative exam: - EENT Eyes: Present: PERRL, EOM intact. Absent: scleral icterus ENT: hearing intact, clear oral mucosa, dentition normal - Neck Neck: Present: supple, normal ROM - Respiratory Respiratory effort: normal Respiratory: bilateral: diminished - Cardiovascular Rhythm: irregularly irregular Heart Sounds: Present: S1 & S2. Absent: gallop, systolic murmur, diastolic murmur, rub - Extremities Extremities: no ischemia, pulses intact, pulses symmetrical, No edema, Full ROM Peripheral Pulses: within normal limits - Abdominal General gastrointestinal: Present: soft, non-tender, non-distended, normal bowel sounds. Absent: mass - Integumentary Integumentary: Present: clear, warm, dry. Absent: rash - Musculoskeletal Musculoskeletal: strength equal bilaterally - Psychiatric Psychiatric: appropriate mood/affect, intact judgment & insight, memory intact, cooperative - Neurologic Neurologic: CNII-XII intact, no focal deficits, moves all extremities Results - Lab Results 08/13/20 08:41 08/13/20 08:41 Most recent lab results Calcium 8.0 mg/dL (8.4-10.2) L 08/13/20 08:41 Assessment and Plan ESRD on Hemodialysis: Sepsis due to Pneumonia: Pneumonia due to infectious agent: Afib with RVR: HTN: CHF: -HD today, Eval for HD need daily -Renally dose all meds -Strict I/Os -D/C IVFs as pt is ESRD -Check CXR in am for volume status
[2020-08-13 11:34] LABS: Band Neutrophils # (Manual) 0.1 K/mm3; Basophils % (Manual) 0 % (0.0-1.8); Eosinophils % (Manual) 0 % (0.0-4.3); Monocytes % (Manual) 0 % (0.0-7.3); Total Cells Counted 100
[2020-08-13 11:36] LABS: Burr Cells 1+; Platelet Estimate Consistent w Auto; Tear Drop Cells Few
[2020-08-13] MEDS ORDERED: PNEUMOCOCCAL 23 Valent 0.5 ML VIAL IM ONE (12:00)
[2020-08-13] MEDS: dilTIAZem 30 MG TAB PO SCH ×2 (12:27→17:55)
[2020-08-13 13:45] LABS: Hepatitis B Surface Antigen Non-Reactive (Negative); Hepatitis C Virus Antibody Reactive (NonReactive)
--- NOTE | 2020-08-13 14:25 | Consultation ---
History of Present Illness Consult date: 08/13/20 Requesting physician: EDUIN NOVAK Reason for consult: pneumonia, other (Atrial Fibrillation with RVR; Acute Hypoxemic Respiratory Failure) History of present illness: PULMONARY/CCM CONSULT NOTE (Full dictation # [id number]) Please see dictated notes for full details Past History Past Medical History: CAD, dialysis, ESRD, heart failure, hypertension Past Surgical History: Other (A-V fistula placement) Social history: smoking (Former Smoker) Family history: no significant family history Medications and Allergies Allergies Allergy/AdvReac Type Severity Reaction Status Date / Time No Known Allergies Allergy Unverified 08/12/20 23:21 Active Meds: Active Medications Acetaminophen (Tylenol) 650 mg PO Q6H PRN PRN Reason: Pain, Mild (1-3) Aspirin (Ecotrin) 325 mg PO QDAY AMALIA Diltiazem HCl (Cardizem) 30 mg PO Q6HR [facility] Last Admin: 08/13/20 12:27 Dose: 30 mg Documented by: Norepinephrine (Levophed Drip 4 Mg/Ns 250 Ml) 4 mg in 250 mls @ 7.5 mls/hr IV TITR AMALIA; Protocol Cefepime HCl (Cefepime/Ns 1 Gm/100 Ml) 1 gm in 100 mls @ 200 mls/hr IV Q24HR [facility] Last Admin: 08/13/20 09:47 Dose: 200 mls/hr Documented by: Sodium Chloride (Nacl 0.9% 1000 Ml) 1,000 mls @ 125 mls/hr IV DIRECT AMALIA Last Admin: 08/13/20 12:24 Dose: 125 mls/hr Documented by: Sodium Chloride (Nacl 0.9%) 100 mls @ 999 mls/hr IV KYLE PRN PRN Reason: Hypotension Magnesium Hydroxide (Milk Of Magnesia) 30 ml PO Q4H PRN PRN Reason: Constipation Morphine Sulfate (Morphine) 2 mg IV Q4H PRN PRN Reason: Pain, Moderate (4-6) Morphine Sulfate (Morphine) 2 mg IV Q5MIN PRN PRN Reason: Chest Pain Nitroglycerin (Nitrostat) 0.4 mg SL Q5M PRN PRN Reason: Chest Pain Ondansetron HCl (Zofran) 4 mg IV Q8H PRN PRN Reason: Nausea And Vomiting Sodium Chloride (Sodium Chloride Flush Syringe 10 Ml) 10 ml IV BID AMALIA Last Admin: 08/13/20 09:47 Dose: 10 ml Documented by: Sodium Chloride (Sodium Chloride Flush Syringe 10 Ml) 10 ml IV PRN PRN PRN Reason: LINE FLUSH Physical Examination Vital signs: Vital Signs Temp 98.2 F 08/12/20 23:08 Results - Laboratory Findings CBC and BMP: 08/13/20 08:41 08/13/20 08:41 PT/INR, D-dimer PT 21.7 Sec. (12.2-14.9) H 08/13/20 Unknown INR 1.85 (0.87-1.13) H 08/13/20 Unknown D-Dimer 1557.08 ng/mlDDU (0-234) H 08/13/20 08:41 Abnormal lab findings: Abnormal Labs 08/13/20 08/13/20 08/13/20 00:04 00:04 00:04 RBC 3.59 L MCV 99 H MCH 33 H RDW 16.8 H Plt Count 84 L Seg Neuts % (Manual) 84.0 H Lymphocytes % (Manual) 2.0 L Lymphocytes # (Manual) 0.1 L PT INR APTT D-Dimer Chloride 95.1 L Carbon Dioxide 18 L BUN 44 H Creatinine 7.0 H Glucose 66 L POC Glucose Lactic Acid Calcium Ferritin Alkaline Phosphatase 34 L Troponin T 0.049 H C-Reactive Protein NT-Pro-B Natriuret Pep 82823 H Albumin 3.3 L LDL Cholesterol Direct 15 L Hepatitis C Antibody 08/13/20 08/13/20 08/13/20 00:04 02:20 02:20 RBC MCV MCH RDW Plt Count Seg Neuts % (Manual) Lymphocytes % (Manual) Lymphocytes # (Manual) PT INR APTT D-Dimer Chloride Carbon Dioxide BUN Creatinine Glucose POC Glucose Lactic Acid 6.10 H* 6.80 H* Calcium Ferritin Alkaline Phosphatase Troponin T 0.045 H C-Reactive Protein NT-Pro-B Natriuret Pep Albumin LDL Cholesterol Direct Hepatitis C Antibody 08/13/20 08/13/20 08/13/20 02:32 03:51 06:14 RBC MCV MCH RDW Plt Count Seg Neuts % (Manual) Lymphocytes % (Manual) Lymphocytes # (Manual) PT INR APTT D-Dimer Chloride Carbon Dioxide BUN Creatinine Glucose POC Glucose 65 L 116 H Lactic Acid Calcium Ferritin Alkaline Phosphatase Troponin T 0.057 H D C-Reactive Protein NT-Pro-B Natriuret Pep Albumin LDL Cholesterol Direct Hepatitis C Antibody 08/13/20 08/13/20 08/13/20 06:14 08:41 08:41 RBC 3.47 L MCV 105 H MCH 34 H RDW 17.8 H Plt Count 72 L Seg Neuts % (Manual) 89.0 H Lymphocytes % (Manual) 9.0 L Lymphocytes # (Manual) 0.5 L PT INR APTT D-Dimer Chloride Carbon Dioxide 19 L BUN 49 H Creatinine 6.9 H Glucose 65 L POC Glucose Lactic Acid 6.40 H* Calcium 8.0 L Ferritin Alkaline Phosphatase Troponin T C-Reactive Protein NT-Pro-B Natriuret Pep Albumin LDL Cholesterol Direct Hepatitis C Antibody 08/13/20 08/13/20 08/13/20 08:41 08:41 08:41 RBC MCV MCH RDW Plt Count Seg Neuts % (Manual) Lymphocytes % (Manual) Lymphocytes # (Manual) PT INR APTT D-Dimer 1557.08 H Chloride Carbon Dioxide BUN Creatinine Glucose POC Glucose Lactic Acid Calcium Ferritin 773.6 H Alkaline Phosphatase Troponin T C-Reactive Protein 28.70 H NT-Pro-B Natriuret Pep Albumin LDL Cholesterol Direct Hepatitis C Antibody 08/13/20 08/13/20 08/13/20 10:51 12:29 12:29 RBC MCV MCH RDW Plt Count Seg Neuts % (Manual) Lymphocytes % (Manual) Lymphocytes # (Manual) PT INR APTT D-Dimer Chloride Carbon Dioxide BUN Creatinine Glucose POC Glucose 109 H Lactic Acid Calcium Ferritin Alkaline Phosphatase Troponin T 0.104 H* D C-Reactive Protein NT-Pro-B Natriuret Pep Albumin LDL Cholesterol Direct Hepatitis C Antibody Reactive A 08/13/20 Unknown RBC MCV MCH RDW Plt Count Seg Neuts % (Manual) Lymphocytes % (Manual) Lymphocytes # (Manual) PT 21.7 H INR 1.85 H APTT 41.7 H D-Dimer Chloride Carbon Dioxide BUN Creatinine Glucose POC Glucose Lactic Acid Calcium Ferritin Alkaline Phosphatase Troponin T C-Reactive Protein NT-Pro-B Natriuret Pep Albumin LDL Cholesterol Direct Hepatitis C Antibody
[2020-08-13] MEDS ORDERED: FAMOTIDINE 20 MG TAB PO SCH (16:00)
[2020-08-13] MEDS: FAMOTIDINE 10 MG TAB PO SCH (16:29)
--- NOTE | 2020-08-13 17:58 | Consultation ---
PULMONARY CRITICAL CARE CONSULTATION NOTE CONSULTING PHYSICIAN: Dr. Carroll. REASON FOR CONSULTATION: Acute hypoxemic respiratory failure, severe sepsis. CHIEF COMPLAINT AND HISTORY OF PRESENT ILLNESS: The patient is a 65-year-old male with a past medical history significant amongst other things for a diagnosis of end-stage renal disease, on dialysis; but also congestive heart failure, who denied missing any dialysis sessions. He came into the Emergency Room complaining of chest pain and shortness of breath that slowly progressed in the preceding 24 hours. It was substernal in nature, nonradiating. He denied any hemoptysis. He did have an episode of vomiting at home. Denied overt aspiration. He denied any alleviating or exacerbating factors to the pain, which he describes as a 6/10 in the ER. In the Emergency Room, he was found to be hypoxemic, hypotensive, hypoglycemic and tachycardic; and was then found to be in atrial fibrillation with a rapid ventricular response. The chest x-ray showed bilateral pulmonary infiltrates. He was started on a Cardizem drip, placed on bilevel positive air pressure ventilation therapy and ICU admission and consultation was requested. When I stopped by to see him, he was feeling a little bit better. Dialysis was ongoing at that time. He did remain on supplemental oxygen and the Cardizem drip. He denied any known exposures to COVID-19 infection. He denied any sick contacts. He does have about a [id number] tobacco smoking history and continues to smoke even though he states he is trying to stop. He denied any new-onset leg pain or swelling either unilaterally or bilaterally. The above is as much of the history of presentation as I have. PAST MEDICAL HISTORY: Again, congestive heart failure; end-stage renal disease, on dialysis; coronary artery disease, hypertension. PAST SURGICAL HISTORY: He has had a left upper extremity AV fistula placed. MEDICATIONS: He was on at the time I stopped by to see him were reviewed. Pertinent medications include the following: Tylenol 650 mg p.o. q. 6 hours p.r.n. mild pain or fevers, aspirin 325 mg p.o. daily, cefepime 1 gram IV daily, diltiazem 30 mg p.o. q. 6 hours to transition for the diltiazem drip going at 5 mg per hour, morphine 2 mg IV q. 4 hours p.r.n. moderate pain, sublingual nitroglycerin 0.4 mg q. 5 minutes p.r.n. chest pain, Levophed drip at 4 mcg per minute, Zofran 4 mg IV q. 8 hours p.r.n. nausea and vomiting. ALLERGIES: No known drug allergies. DIET: Well-built gentleman. Denies acute weight loss or gain in the preceding few weeks to months. FAMILY AND SOCIAL HISTORY: Lives in the community. He does have a [id number] tobacco smoking history. Denies alcohol, illicit drug use or abuse. FAMILY HISTORY: Otherwise, noncontributory. REVIEW OF SYSTEMS: No loss of consciousness. No new onset seizures. No new onset focal weakness. Denies gross hematochezia or melena. Denies gross hematuria or dysuria. No hematemesis. He did have emesis. Denies hemoptysis, denies heat or cold intolerance. Denied polydipsia, polyuria. Complete 13-system review of systems obtained. Pertinent positives and/or negatives as in body of history above; otherwise are noncontributory. PHYSICAL EXAMINATION: VITAL SIGNS: At presentation in the Emergency Room, he was afebrile, the first temperature 98.2, pulse 149, respiratory rate 32, blood pressure 100/47, O2 sats were 94%, at that time, inspired oxygen concentration was not recorded. When I stopped by to see him, O2 sats were 95%, but that was on 4 liters nasal cannula. GENERAL: He is an elderly-looking male, normocephalic, atraumatic, rested in bed with mildly increased respiratory effort at rest. HEAD, EYES, EARS, NOSE AND THROAT: Anicteric. No conjunctival erythema. Oropharynx was moist. Mallampati #2 oropharynx. No gross jugular venous distention, no thyromegaly. NECK: Grossly, there were no palpable lymph nodes in the supraclavicular or submandibular lymph node chains. LUNGS: Auscultation of both lung miller revealed bibasilar rales, no wheezing. HEART: Heart sounds 1 and 2 were heard. They were irregular rate and rhythm at the time of my evaluation without overt rubs or murmurs. ABDOMEN: Soft, flat. Bowel sounds are positive, nontender, no palpable hepatosplenomegaly. EXTREMITIES: Without overt digital clubbing, no cyanosis, no pedal edema. He does have a left upper extremity AV graft. NEUROLOGIC: Pupils were equal, round, about 4 mm, reactive to light. Extraocular muscle movements were intact. He moves all 4 extremities spontaneously. SKIN: Normal turgor without overt cellulitis or rash. Please see the full wound care nurse's notes for full description of his skin. PSYCHIATRIC: His mood was normal. His affect was appropriate. LABORATORY DATA: From my review, admission white cell count 6300, hemoglobin 12.0, hematocrit 35.6, platelet count 84, 10% band forms. INR was 1.85. D-dimer elevated at 1557. Serum sodium was 137, potassium 3.7, chloride 95, bicarbonate 18, BUN 44, creatinine 7.0 with glucose of 66. Lactic acid level was 6.8. Liver function tests within normal limits. Troponin was up at 0.045, now up to 0.104. CRP was 28.7. Procalcitonin 76.72. Hepatitis C antibody was reactive. Two sets of blood cultures, no growth to date. A chest x-ray has been reviewed. It shows left lower lobe predominant infiltrate and gross cardiomegaly. I do not have any other x-ray to compare it against. ASSESSMENT: 1. Acute hypoxemic respiratory failure, on noninvasive ventilation. 2. Severe sepsis with shock. 3. Left lower lobe pneumonia, likely aspiration. 4. End-stage renal disease, on dialysis. 5. Atrial fibrillation with rapid ventricular response. 6. History of congestive heart failure. 7. Coronary artery disease. 8. History of hypertension. 9. Tobacco use disorder. PLAN: We do agree with empiric antibiotic therapy. We will continue supplemental oxygen, keeping O2 sats greater than or equal to about 92%. I note the elevated serum inflammatory markers. Coronavirus PCR test will be sent. In the meantime, he will remain on airborne and contact precautions. Infectious Disease consultation will be at the behest of the attending physician. Oxygen will be given; begin oxygen will be weaned to keep sats greater than or equal to about 92%. Bronchodilators will be on a p.r.n. basis. I will go with Atrovent in light of his atrial fibrillation with rapid ventricular response. I will defer to the general technician in terms of management of the acute coronary syndrome. I will have the registered nurse call the current troponin to Cardiology in light of the elevation in his coronary artery disease history. Oral nutrition will be the feeding modality of choice. Aspiration precautions will be maintained. He will be placed on GI prophylaxis as well as DVT prophylaxis. Repeat lactic acid level is down to 2.6. I will repeat again in the morning. Flu and pneumonia vaccination will be addressed per protocol. Thank you very much for the consult. We will follow along and make further recommendations as picture progresses/becomes clearer. He is critically ill on life-sustaining interventions including vasopressors and noninvasive ventilation. Of note, vasopressors will be weaned to keep target MAPs greater than 65 mmHg. He is at high risk of from cardiopulmonary and renal system decompensation. At this time, I spent about 35-40 minutes of critical care time without overlap and excluding any procedural time that may be necessary. JOB# [id number] EDILSON/FARHAT CESPEDES
[2020-08-13 18:53] LABS: Bilirubin,Urine NEG (Negative); Blood,Urine MOD (Negative); Color,Urine Yellow (Yellow); Mucus,Urine FEW /HPF; RBC,Urine < 1.0 /HPF (0.0-6.0); Urobilinogen,Urine < 2.0 mg/dL (<2.0)
[2020-08-13 18:59] LABS: Amphetamine Screen,Urine PRESUMPTIVE NEGATIVE; Benzodiazepines Screen,Urine PRESUMPTIVE NEGATIVE; Cannabinoid Screen,Urine PRESUMPTIVE NEGATIVE; Cocaine Screen,Urine PRESUMPTIVE POSITIVE; Methadone Screen,Urine PRESUMPTIVE NEGATIVE; Opiate Screen,Urine PRESUMPTIVE NEGATIVE
[2020-08-13] MEDS: HEPARIN 5,000 UNIT/1 ML VIAL SUB-Q SCH (21:39)
[2020-08-14] MEDS: dilTIAZem 30 MG TAB PO SCH ×4 (00:05→17:20)
--- NOTE | 2020-08-14 01:34 | XRay Report ---
CHEST 1 VIEW INDICATION / CLINICAL INFORMATION: congestion. COMPARISON: 08/12/2020 FINDINGS: SUPPORT DEVICES: None. HEART / MEDIASTINUM: Unchanged LUNGS / PLEURA: There is increased left pleural and parenchymal opacity... No pneumothorax. ADDITIONAL FINDINGS: No significant additional findings. IMPRESSION: 1. There is increased pleural and parenchymal disease on the left. Signer Name: Adiel Castillo MD Signed: 08/14/2020 1:30 AM Workstation Name: [id number]
[2020-08-14 05:00] LABS: Basophils % (Auto) 0.2 % (0.0-1.8); Hematocrit 32.8 % (35.5-45.6); Lymphocytes # (Auto) 0.4 K/mm3 (1.2-5.4); Mean Corpuscular HGB Conc 34 % (32-34); Mean Corpuscular Volume 98 fl (84-94); Monocytes # (Auto) 0.4 K/mm3 (0.0-0.8); Monocytes % (Auto) 8.2 % (0.0-7.3); Red Blood Count 3.35 M/mm3 (3.65-5.03); Red Cell Distribution Width 16.2 % (13.2-15.2)
[2020-08-14 05:06] LABS: INR 1.23 (0.87-1.13)
[2020-08-14 05:08] LABS: Platelet Count 63 K/mm3 (140-440)
[2020-08-14 05:09] LABS: Calcium 8.8 mg/dL (8.4-10.2)
[2020-08-14] MEDS: ASPIRIN EC 325 MG TAB PO SCH (09:08)
[2020-08-14] MEDS: HEPARIN 5,000 UNIT/1 ML VIAL SUB-Q SCH ×2 (09:08→21:29)
[2020-08-14] MEDS: FAMOTIDINE 10 MG TAB PO SCH (09:08)
[2020-08-14] MEDS: CEFEPIME/NS 1 GM/100 ML 1 GM/100 ML BAG IV SCH (09:08)
--- NOTE | 2020-08-14 09:43 | Progress Note ---
Assessment and Plan Assessment and plan: Septic shock. Continue IV antibiotics and follow-up cultures. Continue pressors to maintain MAP > 65 Suspected COVID-19 pneumonia. Follow-up Covid testing. ID consultation. ESRD. Continue hemodialysis per nephrology. NSTEMI type 2. Etiology likely secondary to sepsis. Continue per cardiology r ecommendations. Atrial fibrillation with RVR. Continue p.o. --Cardizem 30 mg p.o. every 8 hours. Patient currently on anticoagulation with IV heparin drip. We will transition to Eliquis per cardiology recommendations. Hypertension. Patient actually hypotensive from sepsis. Resume medications as needed. History Interval history: No new issues overnight. Hospitalist Physical - Constitutional Vitals: Temp Pulse Resp BP Pulse Ox 97.8 F 79 15 87/44 100 08/14/20 08:00 08/14/20 08:00 08/14/20 08:00 08/14/20 09:10 08/14/20 08:00 General appearance: Present: no acute distress - EENT Eyes: Present: PERRL, EOM intact ENT: hearing intact, clear oral mucosa, dentition normal - Neck Neck: Present: supple, normal ROM - Respiratory Respiratory effort: normal Respiratory: bilateral: CTA - Cardiovascular Rhythm: regular Heart Sounds: Present: S1 & S2. Absent: gallop, rub - Extremities Extremities: no ischemia, No edema, Full ROM - Abdominal General gastrointestinal: soft, non-tender, non-distended, normal bowel sounds - Integumentary Integumentary: Present: clear, warm, dry - Neurologic Neurologic: CNII-XII intact, moves all extremities HEART Score - HEART Score EKG: Non-specific Age: 45-65 Risk factors: > 3 risk factors or hx of atherosclerotic disease Troponin: Troponin T 0.104 ng/mL (0.00-0.029) H* D 08/13/20 12:29 Troponin: > 3x normal limit Results - Labs CBC & Chem 7: 08/14/20 04:13 08/14/20 04:13 Labs: Laboratory Last Values WBC 5.2 K/mm3 (4.5-11.0) 08/14/20 04:13 RBC 3.35 M/mm3 (3.65-5.03) L 08/14/20 04:13 Hgb 11.0 gm/dl (11.8-15.2) L 08/14/20 04:13 Hct 32.8 % (35.5-45.6) L 08/14/20 04:13 MCV 98 fl (84-94) H 08/14/20 04:13 MCH 33 pg (28-32) H 08/14/20 04:13 MCHC 34 % (32-34) 08/14/20 04:13 RDW 16.2 % (13.2-15.2) H 08/14/20 04:13 Plt Count 63 K/mm3 (140-440) L 08/14/20 04:13 Lymph % (Auto) 7.0 % (13.4-35.0) L 08/14/20 04:13 [place] % (Auto) 8.2 % (0.0-7.3) H 08/14/20 04:13 Eos % (Auto) 0.0 % (0.0-4.3) 08/14/20 04:13 Baso % (Auto) 0.2 % (0.0-1.8) 08/14/20 04:13 Lymph # (Auto) 0.4 K/mm3 (1.2-5.4) L 08/14/20 04:13 [place] # (Auto) 0.4 K/mm3 (0.0-0.8) 08/14/20 04:13 Eos # (Auto) 0.0 K/mm3 (0.0-0.4) 08/14/20 04:13 Baso # (Auto) 0.0 K/mm3 (0.0-0.1) 08/14/20 04:13 Add Manual Diff Complete 08/13/20 08:41 Total Counted 100 08/13/20 08:41 Seg Neutrophils % 84.6 % (40.0-70.0) H 08/14/20 04:13 Seg Neuts % (Manual) 89.0 % (40.0-70.0) H 08/13/20 08:41 Band Neutrophils % 1.0 % 08/13/20 08:41 Lymphocytes % (Manual) 9.0 % (13.4-35.0) L 08/13/20 08:41 Reactive Lymphs % (Man) 0 % 08/13/20 08:41 Monocytes % (Manual) 0 % (0.0-7.3) 08/13/20 08:41 Eosinophils % (Manual) 0 % (0.0-4.3) 08/13/20 08:41 Basophils % (Manual) 0 % (0.0-1.8) 08/13/20 08:41 Metamyelocytes % 1.0 % 08/13/20 08:41 Myelocytes % 0 % 08/13/20 08:41 Promyelocytes % 0 % 08/13/20 08:41 Blast Cells % 0 % 08/13/20 08:41 Nucleated RBC % Not Reportable 08/13/20 08:41 Seg Neutrophils # 4.4 K/mm3 (1.8-7.7) 08/14/20 04:13 Seg Neutrophils # Man 4.8 K/mm3 (1.8-7.7) 08/13/20 08:41 Band Neutrophils # 0.1 K/mm3 08/13/20 08:41 Lymphocytes # (Manual) 0.5 K/mm3 (1.2-5.4) L 08/13/20 08:41 Abs React Lymphs (Man) 0.0 K/mm3 08/13/20 08:41 Monocytes # (Manual) 0.0 K/mm3 (0.0-0.8) 08/13/20 08:41 Eosinophils # (Manual) 0.0 K/mm3 (0.0-0.4) 08/13/20 08:41 Basophils # (Manual) 0.0 K/mm3 (0.0-0.1) 08/13/20 08:41 Metamyelocytes # 0.1 K/mm3 08/13/20 08:41 Myelocytes # 0.0 K/mm3 08/13/20 08:41 Promyelocytes # 0.0 K/mm3 08/13/20 08:41 Blast Cells # 0.0 K/mm3 08/13/20 08:41 WBC Morphology Not Reportable 08/13/20 08:41 WBC Morphology TNR 08/13/20 08:41 Hypersegmented Neuts Not Reportable 08/13/20 08:41 Hyposegmented Neuts Not Reportable 08/13/20 08:41 Hypogranular Neuts Not Reportable 08/13/20 08:41 Smudge Cells Not Reportable 08/13/20 08:41 Toxic Granulation Not Reportable 08/13/20 08:41 Toxic Vacuolation Not Reportable 08/13/20 08:41 Dohle Bodies Not Reportable 08/13/20 08:41 Pelger-Huet Anomaly Not Reportable 08/13/20 08:41 Elian Rods Not Reportable 08/13/20 08:41 Platelet Estimate Consistent w auto 08/13/20 08:41 Clumped Platelets Not Reportable 08/13/20 08:41 Plt Clumps, EDTA Not Reportable 08/13/20 08:41 Large Platelets Not Reportable 08/13/20 08:41 Giant Platelets Not Reportable 08/13/20 08:41 Platelet Satelliting Not Reportable 08/13/20 08:41 Plt Morphology Comment Not Reportable 08/13/20 08:41 RBC Morphology Not Reportable 08/13/20 08:41 Dimorphic RBCs Not Reportable 08/13/20 08:41 Polychromasia Not Reportable 08/13/20 08:41 Hypochromasia Not Reportable 08/13/20 08:41 Poikilocytosis Not Reportable 08/13/20 08:41 Anisocytosis Not Reportable 08/13/20 08:41 Microcytosis Not Reportable 08/13/20 08:41 Macrocytosis Not Reportable 08/13/20 08:41 Spherocytes Not Reportable 08/13/20 08:41 Pappenheimer Bodies Not Reportable 08/13/20 08:41 Sickle Cells Not Reportable 08/13/20 08:41 Target Cells Not Reportable 08/13/20 08:41 Tear Drop Cells Few 08/13/20 08:41 Ovalocytes Not Reportable 08/13/20 08:41 Helmet Cells Not Reportable 08/13/20 08:41 Chavis-Painter Bodies Not Reportable 08/13/20 08:41 [place] Rings Not Reportable 08/13/20 08:41 [place] Cells 1+ 08/13/20 08:41 Bite Cells Not Reportable 08/13/20 08:41 Crenated Cell Not Reportable 08/13/20 08:41 Elliptocytes Few 08/13/20 08:41 Acanthocytes (Spur) Not Reportable 08/13/20 08:41 Rouleaux Not Reportable 08/13/20 08:41 Hemoglobin C Crystals Not Reportable 08/13/20 08:41 Schistocytes Not Reportable 08/13/20 08:41 Malaria parasites Not Reportable 08/13/20 08:41 Raza Bodies Not Reportable 08/13/20 08:41 Hem Pathologist Commnt No 08/13/20 08:41 PT 15.8 Sec. (12.2-14.9) H 08/14/20 04:13 INR 1.23 (0.87-1.13) H 08/14/20 04:13 APTT 41.7 Sec. (24.2-36.6) H 08/13/20 Unknown D-Dimer 1557.08 ng/mlDDU (0-234) H 08/13/20 08:41 Sodium 139 mmol/L (137-145) 08/14/20 04:13 Potassium 4.1 mmol/L (3.6-5.0) 08/14/20 04:13 Chloride 99.4 mmol/L (98-107) 08/14/20 04:13 Carbon Dioxide 25 mmol/L (22-30) 08/14/20 04:13 Anion Gap 19 mmol/L 08/14/20 04:13 BUN 31 mg/dL (9-20) H 08/14/20 04:13 Creatinine 4.9 mg/dL (0.8-1.3) H 08/14/20 04:13 Estimated GFR 15 ml/min 08/14/20 04:13 BUN/Creatinine Ratio 6 % 08/14/20 04:13 Glucose 104 mg/dL (75-100) H 08/14/20 04:13 POC Glucose 101 (70-105) 08/14/20 06:06 Lactic Acid 2.40 mmol/L (0.7-2.0) H* 08/14/20 04:13 Calcium 8.8 mg/dL (8.4-10.2) 08/14/20 04:13 Ferritin 773.6 ng/mL (30.0-300.0) H 08/13/20 08:41 Total Bilirubin 0.80 mg/dL (0.1-1.2) 08/13/20 00:04 AST 24 units/L (5-40) 08/13/20 00:04 ALT 11 units/L (7-56) 08/13/20 00:04 Alkaline Phosphatase 34 units/L (35-129) L 08/13/20 00:04 Lactate Dehydrogenase 154 units/L (91-180) 08/13/20 08:41 Troponin T 0.104 ng/mL (0.00-0.029) H* D 08/13/20 12:29 C-Reactive Protein 28.70 mg/dL (0.00-1.30) H 08/13/20 08:41 NT-Pro-B Natriuret Pep 16085 pg/mL (0-900) H 08/13/20 00:04 Total Protein 7.6 g/dL (6.3-8.2) 08/13/20 00:04 Albumin 3.3 g/dL (3.9-5) L 08/13/20 00:04 Albumin/Globulin Ratio 0.8 % 08/13/20 00:04 Triglycerides 99 mg/dL (2-149) 08/13/20 00:04 Cholesterol 83 mg/dL (50-199) 08/13/20 00:04 LDL Cholesterol Direct 15 mg/dL (50-130) L 08/13/20 00:04 HDL Cholesterol 51 mg/dL (40-59) 08/13/20 00:04 Cholesterol/HDL Ratio 1.62 % 08/13/20 00:04 Procalcitonin 76.72 ng/mL (<0.15) 08/13/20 08:41 Urine Color Yellow (Yellow) 08/13/20 18:30 Urine Turbidity Clear (Clear) 08/13/20 18:30 Urine pH 5.0 (5.0-7.0) 08/13/20 18:30 Ur Specific [place] 1.016 (1.003-1.030) 08/13/20 18:30 Urine Protein 30 mg/dl mg/dL (Negative) 08/13/20 18:30 Urine Glucose (UA) Neg mg/dL (Negative) 08/13/20 18:30 Urine Ketones Neg mg/dL (Negative) 08/13/20 18:30 Urine Blood Mod (Negative) 08/13/20 18:30 Urine Nitrite Neg (Negative) 08/13/20 18:30 Urine Bilirubin Neg (Negative) 08/13/20 18:30 Urine Urobilinogen < 2.0 mg/dL (<2.0) 08/13/20 18:30 Ur Leukocyte Esterase Neg (Negative) 08/13/20 18:30 Urine WBC (Auto) 1.0 /HPF (0.0-6.0) 08/13/20 18:30 Urine RBC (Auto) < 1.0 /HPF (0.0-6.0) 08/13/20 18:30 U Epithel Cells (Auto) < 1.0 /HPF (0-13.0) 08/13/20 18:30 Urine Mucus Few /HPF 08/13/20 18:30 Urine Opiates Screen Presumptive negative 08/13/20 18:30 Urine Methadone Screen Presumptive negative 08/13/20 18:30 Ur Barbiturates Screen Presumptive negative 08/13/20 18:30 Ur Phencyclidine Scrn Presumptive negative 08/13/20 18:30 Ur Amphetamines Screen Presumptive negative 08/13/20 18:30 U Benzodiazepines Scrn Presumptive negative 08/13/20 18:30 Urine Cocaine Screen Presumptive positive 08/13/20 18:30 U Marijuana (THC) Screen Presumptive negative 08/13/20 18:30 Drugs of Abuse Note Disclamer 08/13/20 18:30 Hepatitis A IgM Ab Non-reactive (NonReactive) 08/13/20 12:29 Hep Bs Antigen Non-reactive (Negative) 08/13/20 12:29 Hep B Core IgM Ab Non-reactive (NonReactive) 08/13/20 12:29 Hepatitis C Antibody Reactive (NonReactive) A 08/13/20 12:29 Microbiology: Microbiology 08/12/20 23:52 Peripheral/Venous Blood Culture - Preliminary NO GROWTH AFTER 24 HOURS 08/13/20 00:04 Peripheral/Venous Blood Culture - Preliminary NO GROWTH AFTER 24 HOURS Puente/IV: Voiding Method Urinal IV Catheter Type [Right Hand] INT / Saline Lock IV Catheter Type [Right Wrist] INT / Saline Lock Active Medications - Current Medications Current Medications: Generic Name Dose Route Start Last Admin Trade Name Freq PRN Reason Stop Dose Admin Acetaminophen 650 mg 08/13/20 06:46 Tylenol PO Q6H PRN Pain, Mild (1-3) Aspirin 325 mg 08/14/20 10:00 08/14/20 09:08 Ecotrin PO 325 mg QDAY AMALIA Administration Diltiazem HCl 30 mg 08/14/20 10:00 08/14/20 09:10 Cardizem PO Not Given Q8H AMALIA Famotidine 10 mg 08/13/20 16:00 08/14/20 09:08 Pepcid PO 10 mg DAILY AMALIA Administration Heparin Sodium (Porcine) 5,000 unit 08/13/20 22:00 08/14/20 09:08 Heparin SUB-Q 5,000 unit Q12HR AMALIA Administration Norepinephrine 4 mg in 250 mls @ 7.5 mls/hr 08/12/20 23:45 Levophed Drip 4 Mg/Ns 250 Ml IV TITR AMALIA Protocol 2 MCG/MIN Cefepime HCl 1 gm in 100 mls @ 200 mls/hr 08/13/20 10:00 08/14/20 09:08 Cefepime/Ns 1 Gm/100 Ml IV 200 mls/hr Q24HR AMALIA Administration Sodium Chloride 100 mls @ 999 mls/hr 08/13/20 10:48 Nacl 0.9% IV KYLE PRN Hypotension Magnesium Hydroxide 30 ml 08/13/20 02:14 Milk Of Magnesia PO Q4H PRN Constipation Midodrine 5 mg 08/14/20 12:00 Proamatine PO TID@0800,1200,1600 AMALIA Morphine Sulfate 2 mg 08/13/20 02:14 Morphine IV Q4H PRN Pain, Moderate (4-6) Morphine Sulfate 2 mg 08/13/20 06:46 Morphine IV Q5MIN PRN Chest Pain Nitroglycerin 0.4 mg 08/13/20 06:46 Nitrostat SL Q5M PRN Chest Pain Ondansetron HCl 4 mg 08/13/20 02:14 Zofran IV Q8H PRN Nausea And Vomiting Sodium Chloride 10 ml 08/13/20 10:00 08/14/20 09:10 Sodium Chloride Flush Syringe 10 Ml IV 10 ml BID AMALIA Administration Sodium Chloride 10 ml 08/13/20 02:14 Sodium Chloride Flush Syringe 10 Ml IV PRN PRN LINE FLUSH Nutrition/Malnutrition Assess - Dietary Evaluation Nutrition/Malnutrition Findings: Nutrition Notes Start: 08/13/20 10:03 Freq: Status: Active Protocol: Document 08/13/20 10:03 CANDIS (Rec: 08/13/20 10:09 CANDIS [email or web address]) Nutrition Notes Need for Assessment generated from: MD Order,director intelligence analysis programs,MST, Education Initial or Follow up Brief Note Current Diagnosis CKD (stage V CKD),Coronary Artery Disease,Sepsis, Hypertension,Heart Failure, Respiratory Failure Other Pertinent Diagnosis Pneu, r/o COVID-19, afib with RVR, Hypotension Current Diet Cardiac Labs/Tests BUN 49 Cr 6.9 BG 65 Pertinent Medications Heparin gtt, Levophed gtt, NS at 125ml/hr Height 5 ft 9 in Weight 70.9 kg [place] Body Weight (kg) 72.72 BMI 23.1 Weight Status Appropriate Subjective/Other Information RD consulted for diet education; pt also screened for malnutrition risk (R/T uncertainty of wt loss). Burn Absent Trauma Absent Minimum of two criteria No Is patient on ventilator? No Is Patient Ambulatory and/or Out of Bed No REE-(Pima-St. Jeor-confined to bed) 3602.398 Calculation Used for Recommendations Pima-St Jeor Additional Notes Pro needs >1.2g/kg: >85g/day Fluid needs 1-1.5L/day Nutrition Intervention Anticipated Discharge Needs: Unable to determine at this time Follow-Up By: 08/16/20 Additional Comments F/U: intakes, diet education needs, need for full assessment
--- NOTE | 2020-08-14 09:44 | Progress Note ---
Assessment and Plan ESRD on Hemodialysis: Sepsis due to Pneumonia: Pneumonia due to infectious agent: Afib with RVR: HTN: CHF: -s/p HD yesterday, CXR congested, HD again today, Eval for HD need daily -Renally dose all meds -Strict I/Os -D/C IVFs yesterday as pt is ESRD Subjective Date of service: 08/14/20 Interval history: In ICU. s/p HD yesterday, CXR congested. Objective - Exam Narrative Exam: - EENT Eyes: Present: PERRL, EOM intact. Absent: scleral icterus ENT: hearing intact, clear oral mucosa, dentition normal - Neck Neck: Present: supple, normal ROM - Respiratory Respiratory effort: normal Respiratory: bilateral: diminished - Cardiovascular Rhythm: irregularly irregular Heart Sounds: Present: S1 & S2. Absent: gallop, systolic murmur, diastolic murmur, rub - Extremities Extremities: no ischemia, pulses intact, pulses symmetrical, No edema, Full ROM Peripheral Pulses: within normal limits - Abdominal General gastrointestinal: Present: soft, non-tender, non-distended, normal bowel sounds. Absent: mass - Integumentary Integumentary: Present: clear, warm, dry. Absent: rash - Musculoskeletal Musculoskeletal: strength equal bilaterally - Psychiatric Psychiatric: appropriate mood/affect, intact judgment & insight, memory intact, cooperative - Neurologic Neurologic: CNII-XII intact, no focal deficits, moves all extremities - Vital Signs Vital signs: Vital Signs - 12hr 08/13/20 08/13/20 08/13/20 22:00 22:30 23:00 Temperature 98.6 F Pulse Rate 112 H 116 H 96 H Pulse Rate [ From Monitor] Respiratory 31 H 31 H 28 H Rate Blood Pressure 99/63 91/49 91/62 O2 Sat by Pulse 97 99 99 Oximetry 08/13/20 08/13/20 08/13/20 23:08 23:30 23:44 Temperature Pulse Rate 105 H 101 H 107 H Pulse Rate [ From Monitor] Respiratory 14 22 22 Rate Blood Pressure 91/62 95/45 89/59 O2 Sat by Pulse 100 93 Oximetry 08/14/20 08/14/20 08/14/20 00:00 00:05 00:30 Temperature Pulse Rate 104 H 93 H 99 H Pulse Rate [ 104 H From Monitor] Respiratory 34 H 24 Rate Blood Pressure 105/65 105/65 79/40 O2 Sat by Pulse 96 97 Oximetry 08/14/20 08/14/20 08/14/20 01:00 01:30 02:00 Temperature Pulse Rate 112 H 106 H 113 H Pulse Rate [ From Monitor] Respiratory 30 H 22 20 Rate Blood Pressure 105/71 96/68 93/61 O2 Sat by Pulse 99 99 35 L Oximetry 08/14/20 08/14/20 08/14/20 02:30 03:00 03:31 Temperature Pulse Rate 102 H 99 H 96 H Pulse Rate [ From Monitor] Respiratory 24 26 H 21 Rate Blood Pressure 102/54 87/42 85/57 O2 Sat by Pulse 93 90 89 Oximetry 08/14/20 08/14/20 08/14/20 04:00 04:30 05:00 Temperature 98.0 F Pulse Rate 89 84 84 Pulse Rate [ 89 From Monitor] Respiratory 24 25 H 14 Rate Blood Pressure 86/52 98/63 89/65 O2 Sat by Pulse 99 98 100 Oximetry 08/14/20 08/14/20 08/14/20 05:30 06:16 06:30 Temperature Pulse Rate 82 89 84 Pulse Rate [ From Monitor] Respiratory 22 24 Rate Blood Pressure 91/45 109/71 115/70 O2 Sat by Pulse 100 100 Oximetry 08/14/20 08/14/20 08/14/20 07:00 07:30 08:00 Temperature 97.8 F Pulse Rate 83 80 79 Pulse Rate [ From Monitor] Respiratory 20 25 H 15 Rate Blood Pressure 81/47 87/46 84/54 O2 Sat by Pulse 98 97 100 Oximetry 08/14/20 09:10 Temperature Pulse Rate Pulse Rate [ From Monitor] Respiratory Rate Blood Pressure 87/44 O2 Sat by Pulse Oximetry - Lab 08/14/20 04:13 08/14/20 04:13 Most recent lab results Calcium 8.8 mg/dL (8.4-10.2) 08/14/20 04:13 Medications & Allergies - Medications Allergies/Adverse Reactions: Allergies No Known Allergies Allergy (Unverified 08/12/20 23:21) Active Medications: Generic Name Dose Route Start Last Admin Trade Name Freq PRN Reason Stop Dose Admin Acetaminophen 650 mg 08/13/20 06:46 Tylenol PO Q6H PRN Pain, Mild (1-3) Aspirin 325 mg 08/14/20 10:00 08/14/20 09:08 Ecotrin PO 325 mg QDAY AMALIA Administration Diltiazem HCl 30 mg 08/14/20 10:00 08/14/20 09:10 Cardizem PO Not Given Q8H AMALIA Famotidine 10 mg 08/13/20 16:00 08/14/20 09:08 Pepcid PO 10 mg DAILY AMALIA Administration Heparin Sodium (Porcine) 5,000 unit 08/13/20 22:00 08/14/20 09:08 Heparin SUB-Q 5,000 unit Q12HR AMALIA Administration Norepinephrine 4 mg in 250 mls @ 7.5 mls/hr 08/12/20 23:45 Levophed Drip 4 Mg/Ns 250 Ml IV TITR AMALIA Protocol 2 MCG/MIN Cefepime HCl 1 gm in 100 mls @ 200 mls/hr 08/13/20 10:00 08/14/20 09:08 Cefepime/Ns 1 Gm/100 Ml IV 200 mls/hr Q24HR AMALIA Administration Sodium Chloride 100 mls @ 999 mls/hr 08/13/20 10:48 Nacl 0.9% IV KYLE PRN Hypotension Magnesium Hydroxide 30 ml 08/13/20 02:14 Milk Of Magnesia PO Q4H PRN Constipation Midodrine 5 mg 08/14/20 12:00 Proamatine PO TID@0800,1200,1600 COUNTS INCLUDE 234 BEDS AT [facility] Morphine Sulfate 2 mg 08/13/20 02:14 Morphine IV Q4H PRN Pain, Moderate (4-6) Morphine Sulfate 2 mg 08/13/20 06:46 Morphine IV Q5MIN PRN Chest Pain Nitroglycerin 0.4 mg 08/13/20 06:46 Nitrostat SL Q5M PRN Chest Pain Ondansetron HCl 4 mg 08/13/20 02:14 Zofran IV Q8H PRN Nausea And Vomiting Sodium Chloride 10 ml 08/13/20 10:00 08/14/20 09:10 Sodium Chloride Flush Syringe 10 Ml IV 10 ml BID AMALIA Administration Sodium Chloride 10 ml 08/13/20 02:14 Sodium Chloride Flush Syringe 10 Ml IV PRN PRN LINE FLUSH
--- NOTE | 2020-08-14 10:43 | Progress Note ---
Assessment and Plan Severe septic shock Lactic acidosis Hypertension Pneumonia Covid 19 pending ESRD on HD Non-specific troponin No ischemic ECG changes Essential primary hypertension Persistent atrial fibrillation No anticoagulation due to hemoptysis and thrombocytopenia Thrombocytopenia Platelet count trending down Recommendations: Continue rate control Lower diltiazem to 30 mg with holding parameters due to low blood pressure Add midodrine Follow-up Covid 19 testing No further cardiac intervention is needed Subjective Date of service: 08/14/20 Principal diagnosis: Atrial fibrillation Interval history: No cardiac events reported overnight Tele is showing rate controlled atrial fibrillation Objective Vital Signs Temp Pulse Pulse Resp BP Pulse Ox Pulse Ox 08/14/20 09:10 87/44 08/14/20 08:00 97.8 F 79 15 84/54 100 08/14/20 07:30 80 25 H 87/46 97 08/14/20 07:00 83 20 81/47 98 08/14/20 06:30 84 24 115/70 100 08/14/20 06:16 89 109/71 08/14/20 05:30 82 22 91/45 100 08/14/20 05:00 84 14 89/65 100 08/14/20 04:30 84 25 H 98/63 98 08/14/20 04:00 98.0 F 89 89 24 86/52 99 08/14/20 03:31 96 H 21 85/57 89 08/14/20 03:00 99 H 26 H 87/42 90 08/14/20 02:30 102 H 24 102/54 93 08/14/20 02:00 113 H 20 93/61 35 L 08/14/20 01:30 106 H 22 96/68 99 08/14/20 01:00 112 H 30 H 105/71 99 08/14/20 00:30 99 H 24 79/40 97 08/14/20 00:05 93 H 105/65 08/14/20 00:00 104 H 104 H 34 H 105/65 96 08/13/20 23:44 107 H 22 89/59 93 08/13/20 23:30 101 H 22 95/45 100 08/13/20 23:08 105 H 14 91/62 08/13/20 23:00 98.6 F 96 H 28 H 91/62 99 08/13/20 22:30 116 H 31 H 91/49 99 08/13/20 22:00 112 H 31 H 99/63 97 10/17/20 21:30 119 H 31 H 119/77 96 08/13/20 21:00 106 H 30 H 119/77 96 08/13/20 20:52 97 08/13/20 20:30 114 H 30 H 119/77 96 08/13/20 20:00 92 H 92 H 24 91/61 96 08/13/20 19:59 100 H 08/13/20 19:30 97 H 28 H 114/67 92 08/13/20 19:00 98.3 F 126 H 28 H 113/74 89 08/13/20 18:40 125 H 20 107/66 55 L 08/13/20 18:30 106 H 25 H 107/66 08/13/20 18:20 94 H 22 100/65 08/13/20 18:15 99.1 F 98 H 22 114/74 100 08/13/20 18:10 101 H 21 98/67 08/13/20 18:00 94 H 27 H 88/68 08/13/20 17:55 93 H 104/58 08/13/20 17:50 115 H 24 126/68 79 L 08/13/20 17:45 102 H 126/68 08/13/20 17:40 118 H 23 126/68 96 08/13/20 17:30 98 H 22 133/71 90 08/13/20 17:20 89 22 128/71 99 08/13/20 17:15 105 H 133/70 08/13/20 17:10 116 H 25 H 133/70 87 08/13/20 17:00 107 H 28 H 132/81 93 08/13/20 16:50 112 H 22 128/74 97 08/13/20 16:45 94 H 128/73 08/13/20 16:40 104 H 21 128/74 100 08/13/20 16:30 125 H 15 128/73 100 08/13/20 16:20 102 H 21 138/72 98 08/13/20 16:17 99 08/13/20 16:15 96 H 138/72 08/13/20 16:10 106 H 19 122/74 100 08/13/20 16:00 87 87 19 125/72 100 08/13/20 15:50 92 H 20 129/76 08/13/20 15:45 104 H 122/74 08/13/20 15:40 101 H 22 112/79 100 08/13/20 15:30 90 20 112/75 99 08/13/20 15:20 98 H 22 112/79 08/13/20 15:15 105 H 98/77 08/13/20 15:10 96 H 26 H 103/70 98 08/13/20 15:00 98.9 F 109 H 27 H 103/70 100 08/13/20 14:50 101 H 28 H 103/70 100 08/13/20 14:45 98.9 F 96 H 28 H 110/63 100 08/13/20 14:40 105 H 32 H 110/63 98 08/13/20 14:30 100 H 16 101/75 94 08/13/20 14:20 135 H 31 H 101/75 96 08/13/20 14:10 127 H 22 101/75 96 08/13/20 14:00 104 H 33 H 129/88 99 08/13/20 13:50 108 H 30 H 129/88 99 08/13/20 13:40 112 H 33 H 129/88 97 08/13/20 13:30 116 H 31 H 129/88 96 08/13/20 13:20 99 H 34 H 129/88 96 08/13/20 13:10 119 H 35 H 129/88 97 08/13/20 13:00 133 H 29 H 105/54 94 08/13/20 12:50 115 H 26 H 105/54 97 08/13/20 12:40 134 H 16 105/54 94 08/13/20 12:30 106 H 35 H 105/54 96 08/13/20 12:27 133 H 105/54 08/13/20 12:20 135 H 24 105/54 95 08/13/20 12:10 134 H 29 H 105/54 96 08/13/20 12:00 121 H 121 H 22 105/54 94 08/13/20 11:50 131 H 25 H 96/63 93 08/13/20 11:40 135 H 26 H 96/63 97 08/13/20 11:30 129 H 21 96/63 98 08/13/20 11:20 100 H 24 96/63 94 08/13/20 11:10 146 H 25 H 96/63 99 08/13/20 11:00 98.9 F 129 H 25 H 100/54 99 08/13/20 10:50 84 25 H 100/54 96 - Physical Examination Narrative exam: Patient was not examined due to Covid 19 precautions General: Cachectic - Labs and Meds Coagulation 08/14/20 Range/Units 04:13 PT 15.8 H (12.2-14.9) Sec. INR 1.23 H (0.87-1.13) CBC 08/14/20 Range/Units 04:13 WBC 5.2 (4.5-11.0) K/mm3 RBC 3.35 L (3.65-5.03) M/mm3 Hgb 11.0 L (11.8-15.2) gm/dl Hct 32.8 L (35.5-45.6) % Plt Count 63 L (140-440) K/mm3 Lymph # (Auto) 0.4 L (1.2-5.4) K/mm3 [place] # (Auto) 0.4 (0.0-0.8) K/mm3 Eos # (Auto) 0.0 (0.0-0.4) K/mm3 Baso # (Auto) 0.0 (0.0-0.1) K/mm3 Comprehensive Metabolic Panel 08/14/20 Range/Units 04:13 Sodium 139 (137-145) mmol/L Potassium 4.1 (3.6-5.0) mmol/L Chloride 99.4 (98-107) mmol/L Carbon Dioxide 25 (22-30) mmol/L BUN 31 H (9-20) mg/dL Creatinine 4.9 H (0.8-1.3) mg/dL Glucose 104 H (75-100) mg/dL Calcium 8.8 (8.4-10.2) mg/dL
[2020-08-14] MEDS: MIDODRINE 2.5 MG TAB PO SCH ×2 (11:34→16:12)
--- NOTE | 2020-08-14 13:41 | Progress Note ---
Assessment and Plan Acute hypoxemic respiratory failure, on noninvasive ventilation. Severe sepsis with shock. Left lower lobe pneumonia, likely aspiration. End-stage renal disease, on dialysis. Atrial fibrillation with rapid ventricular response. History of congestive heart failure. Coronary artery disease. History of hypertension. Tobacco use disorder. - COVID-19 isolation per facility protocol (airborne and contact) - follow COVID PCR result - continue empiric CAP AB's X 5 days - continue NIV prn for increased work of breathing - continue HD/UF for toxin and volume control - accuchecks with glycemic control per SSI (While critically ill target blood glucose of 140-180 mg/dL; avoid hypoglycemia) - continue to wean supplemental oxygen for target O2 sat's > 90% acutely - bronchodilators with pulmonary hygiene per RT - avoid nephrotoxins, renally dose all medications - continue to avoid benzodiazepine's, reduce the possibility of delirium - complete AB's per ID rec's - prn analgesia per pain score - Maintenance of sleep-wake cycle, avoid delirium - continue aspiration precautions - G.I. & VTE prophylaxis - PT/OT/ROM exercises - continue mobility protocols for pressure ulcer prophylaxis - Monitor hemodynamics closely - continue other care per attending / other consultants - discharge planning ongoing concurrently .... Re-evaluate in am & prn CONDITION: CRITICAL PROGNOSIS: GUARDED CODE STATUS: FULL CODE The high probability of a clinically significant, sudden or life-threatening deterioration of the [respiratory, cardiovascular & renal] system(s) required my full and direct attention, intervention and personal management. The aggregate critical care time was [31] minutes without overlap. Time includes spent on; [x] Data Review and interpretation [x] Patient assessment and monitoring of vital signs [x] Documentation [x] Medication orders and management Subjective Date of service: 08/14/20 Principal diagnosis: Atrial fibrillation Interval history: Patient is seen today for: Acute hypoxemic respiratory failure, on noninvasive ventilation. Severe sepsis with shock. Left lower lobe pneumonia, likely aspiration. End-stage renal disease, on dialysis. Atrial fibrillation with rapid ventricular response. History of congestive heart failure. Coronary artery disease. History of hypertension. Tobacco use disorder. Seen and examined at bedside; 24hour events reviewed; nursing and respiratory care staff consulted; no adverse overnight events reported to me; Objective Vital Signs - 12hr 08/14/20 08/14/20 08/14/20 02:00 02:30 03:00 Temperature Pulse Rate 113 H 102 H 99 H Pulse Rate [ From Monitor] Respiratory 20 24 26 H Rate Blood Pressure 93/61 102/54 87/42 O2 Sat by Pulse 35 L 93 90 Oximetry 08/14/20 08/14/20 08/14/20 03:31 04:00 04:30 Temperature 98.0 F Pulse Rate 96 H 89 84 Pulse Rate [ 89 From Monitor] Respiratory 21 24 25 H Rate Blood Pressure 85/57 86/52 98/63 O2 Sat by Pulse 89 99 98 Oximetry 08/14/20 08/14/20 08/14/20 05:00 05:30 06:16 Temperature Pulse Rate 84 82 89 Pulse Rate [ From Monitor] Respiratory 14 22 Rate Blood Pressure 89/65 91/45 109/71 O2 Sat by Pulse 100 100 Oximetry 08/14/20 08/14/20 08/14/20 06:30 07:00 07:30 Temperature Pulse Rate 84 83 80 Pulse Rate [ From Monitor] Respiratory 24 20 25 H Rate Blood Pressure 115/70 81/47 87/46 O2 Sat by Pulse 100 98 97 Oximetry 08/14/20 08/14/20 08/14/20 08:00 08:30 09:01 Temperature 97.8 F Pulse Rate 79 Pulse Rate [ From Monitor] Respiratory 15 Rate Blood Pressure 84/54 104/51 87/44 O2 Sat by Pulse 100 97 96 Oximetry 08/14/20 08/14/20 08/14/20 09:10 09:31 10:01 Temperature Pulse Rate 79 73 Pulse Rate [ From Monitor] Respiratory 29 H 24 Rate Blood Pressure 87/44 87/44 79/48 O2 Sat by Pulse 100 96 Oximetry 08/14/20 08/14/20 08/14/20 10:31 11:00 11:45 Temperature 98.0 F Pulse Rate 78 74 Pulse Rate [ From Monitor] Respiratory 24 21 Rate Blood Pressure 79/48 89/44 O2 Sat by Pulse 98 98 Oximetry CBC and BMP: 08/14/20 04:13 08/14/20 04:13 ABG, PT/INR, D-dimer: PT/INR, D-dimer PT 15.8 Sec. (12.2-14.9) H 08/14/20 04:13 INR 1.23 (0.87-1.13) H 08/14/20 04:13 D-Dimer 1557.08 ng/mlDDU (0-234) H 08/13/20 08:41 Abnormal lab findings: Abnormal Labs 08/13/20 08/13/20 08/13/20 00:04 00:04 00:04 RBC 3.59 L Hgb Hct MCV 99 H MCH 33 H RDW 16.8 H Plt Count 84 L Lymph % (Auto) [place] % (Auto) Lymph # (Auto) Seg Neutrophils % Seg Neuts % (Manual) 84.0 H Lymphocytes % (Manual) 2.0 L Lymphocytes # (Manual) 0.1 L PT INR APTT D-Dimer Chloride 95.1 L Carbon Dioxide 18 L BUN 44 H Creatinine 7.0 H Glucose 66 L POC Glucose Lactic Acid Calcium Ferritin Alkaline Phosphatase 34 L Troponin T 0.049 H C-Reactive Protein NT-Pro-B Natriuret Pep 26336 H Albumin 3.3 L LDL Cholesterol Direct 15 L Hepatitis C Antibody 08/13/20 08/13/20 08/13/20 00:04 02:20 02:20 RBC Hgb Hct MCV MCH RDW Plt Count Lymph % (Auto) [place] % (Auto) Lymph # (Auto) Seg Neutrophils % Seg Neuts % (Manual) Lymphocytes % (Manual) Lymphocytes # (Manual) PT INR APTT D-Dimer Chloride Carbon Dioxide BUN Creatinine Glucose POC Glucose Lactic Acid 6.10 H* 6.80 H* Calcium Ferritin Alkaline Phosphatase Troponin T 0.045 H C-Reactive Protein NT-Pro-B Natriuret Pep Albumin LDL Cholesterol Direct Hepatitis C Antibody 08/13/20 08/13/20 08/13/20 02:32 03:51 06:14 RBC Hgb Hct MCV MCH RDW Plt Count Lymph % (Auto) [place] % (Auto) Lymph # (Auto) Seg Neutrophils % Seg Neuts % (Manual) Lymphocytes % (Manual) Lymphocytes # (Manual) PT INR APTT D-Dimer Chloride Carbon Dioxide BUN Creatinine Glucose POC Glucose 65 L 116 H Lactic Acid Calcium Ferritin Alkaline Phosphatase Troponin T 0.057 H D C-Reactive Protein NT-Pro-B Natriuret Pep Albumin LDL Cholesterol Direct Hepatitis C Antibody 08/13/20 08/13/20 08/13/20 06:14 08:41 08:41 RBC 3.47 L Hgb Hct MCV 105 H MCH 34 H RDW 17.8 H Plt Count 72 L Lymph % (Auto) [place] % (Auto) Lymph # (Auto) Seg Neutrophils % Seg Neuts % (Manual) 89.0 H Lymphocytes % (Manual) 9.0 L Lymphocytes # (Manual) 0.5 L PT INR APTT D-Dimer Chloride Carbon Dioxide 19 L BUN 49 H Creatinine 6.9 H Glucose 65 L POC Glucose Lactic Acid 6.40 H* Calcium 8.0 L Ferritin Alkaline Phosphatase Troponin T C-Reactive Protein NT-Pro-B Natriuret Pep Albumin LDL Cholesterol Direct Hepatitis C Antibody 08/13/20 08/13/20 08/13/20 08:41 08:41 08:41 RBC Hgb Hct MCV MCH RDW Plt Count Lymph % (Auto) [place] % (Auto) Lymph # (Auto) Seg Neutrophils % Seg Neuts % (Manual) Lymphocytes % (Manual) Lymphocytes # (Manual) PT INR APTT D-Dimer 1557.08 H Chloride Carbon Dioxide BUN Creatinine Glucose POC Glucose Lactic Acid Calcium Ferritin 773.6 H Alkaline Phosphatase Troponin T C-Reactive Protein 28.70 H NT-Pro-B Natriuret Pep Albumin LDL Cholesterol Direct Hepatitis C Antibody 08/13/20 08/13/20 08/13/20 10:51 12:29 12:29 RBC Hgb Hct MCV MCH RDW Plt Count Lymph % (Auto) [place] % (Auto) Lymph # (Auto) Seg Neutrophils % Seg Neuts % (Manual) Lymphocytes % (Manual) Lymphocytes # (Manual) PT INR APTT D-Dimer Chloride Carbon Dioxide BUN Creatinine Glucose POC Glucose 109 H Lactic Acid Calcium Ferritin Alkaline Phosphatase Troponin T 0.104 H* D C-Reactive Protein NT-Pro-B Natriuret Pep Albumin LDL Cholesterol Direct Hepatitis C Antibody Reactive A 08/13/20 08/13/20 08/13/20 14:13 23:15 Unknown RBC Hgb Hct MCV MCH RDW Plt Count Lymph % (Auto) [place] % (Auto) Lymph # (Auto) Seg Neutrophils % Seg Neuts % (Manual) Lymphocytes % (Manual) Lymphocytes # (Manual) PT 21.7 H INR 1.85 H APTT 41.7 H D-Dimer Chloride Carbon Dioxide BUN Creatinine Glucose POC Glucose 116 H Lactic Acid 2.60 H* Calcium Ferritin Alkaline Phosphatase Troponin T C-Reactive Protein NT-Pro-B Natriuret Pep Albumin LDL Cholesterol Direct Hepatitis C Antibody 08/14/20 08/14/20 08/14/20 04:13 04:13 04:13 RBC 3.35 L Hgb 11.0 L Hct 32.8 L MCV 98 H MCH 33 H RDW 16.2 H Plt Count 63 L Lymph % (Auto) 7.0 L [place] % (Auto) 8.2 H Lymph # (Auto) 0.4 L Seg Neutrophils % 84.6 H Seg Neuts % (Manual) Lymphocytes % (Manual) Lymphocytes # (Manual) PT 15.8 H INR 1.23 H APTT D-Dimer Chloride Carbon Dioxide BUN Creatinine Glucose POC Glucose Lactic Acid 2.40 H* Calcium Ferritin Alkaline Phosphatase Troponin T C-Reactive Protein NT-Pro-B Natriuret Pep Albumin LDL Cholesterol Direct Hepatitis C Antibody 08/14/20 08/14/20 04:13 11:55 RBC Hgb Hct MCV MCH RDW Plt Count Lymph % (Auto) [place] % (Auto) Lymph # (Auto) Seg Neutrophils % Seg Neuts % (Manual) Lymphocytes % (Manual) Lymphocytes # (Manual) PT INR APTT D-Dimer Chloride Carbon Dioxide BUN 31 H Creatinine 4.9 H Glucose 104 H POC Glucose 125 H Lactic Acid Calcium Ferritin Alkaline Phosphatase Troponin T C-Reactive Protein NT-Pro-B Natriuret Pep Albumin LDL Cholesterol Direct Hepatitis C Antibody
[2020-08-15] MEDS ORDERED: ALBUMIN HUMAN 25% (25 GM/100 ML) INJ IV PRN (01:20)
[2020-08-15] MEDS: dilTIAZem 30 MG TAB PO SCH ×3 (02:06→17:43)
[2020-08-15 06:21] LABS: Basophils % (Auto) 0.3 % (0.0-1.8); Eosinophils % (Auto) 0.5 % (0.0-4.3); Hematocrit 31.6 % (35.5-45.6); Hemoglobin 10.9 gm/dl (11.8-15.2); Lymphocytes # (Auto) 0.7 K/mm3 (1.2-5.4); Lymphocytes % (Auto) 17.6 % (13.4-35.0); Mean Corpuscular HGB Conc 35 % (32-34); Mean Corpuscular Volume 97 fl (84-94); Monocytes # (Auto) 0.6 K/mm3 (0.0-0.8); Monocytes % (Auto) 14.2 % (0.0-7.3); Red Blood Count 3.28 M/mm3 (3.65-5.03); Red Cell Distribution Width 15.7 % (13.2-15.2)
[2020-08-15 06:35] LABS: Platelet Count 76 K/mm3 (140-440)
[2020-08-15 06:38] LABS: Calcium 9.7 mg/dL (8.4-10.2)
--- NOTE | 2020-08-15 07:42 | Progress Note ---
Assessment and Plan Assessment and plan: --COVID-19 test; - 08/14/2020 --Acute hypoxic respiratory failure; requiring BiPAP Oxygen titrate O2 sats to more than 90% BiPAP as needed, supportive care Pulmonary critical following --Septic shock: On IV antibiotics and follow-up cultures. Continue pressors to maintain MAP > 65 Wean as tolerated and DC Levophed Patient is also on midodrine --Suspected COVID-19 pneumonia: Negative Covid test --ESRD: On HD Hemodialysis per schedule, nephrology following. --NSTEMI type 2: Etiology likely secondary to sepsis. Cardiology following --Atrial fibrillation with RVR: Rate controlled Continue p.o. Cardizem 30 mg every 8 hours. Patient currently not on anticoagulation due to Thrombocytopenia and hemoptysis Continue aspirin 325 mg daily Cardiology following --Hypertension: Patient actually hypotensive from sepsis. Closely monitor blood pressures --DVT prophylaxis; Heparin renal dose We will closely monitor the patient and adjust management as needed History Interval history: I have seen and examined the patient at the bedside this morning Patient's chart and medications reviewed Patient feels slightly better no new complaints Vital signs noted Hospitalist Physical - Constitutional Vitals: Temp Pulse Resp BP Pulse Ox 97.6 F 89 19 97/68 100 08/15/20 04:00 08/15/20 06:00 08/15/20 06:00 08/15/20 06:00 08/15/20 06:00 General appearance: Present: no acute distress, well-nourished - EENT Eyes: Present: PERRL, EOM intact - Neck Neck: Present: supple, normal ROM - Respiratory Respiratory effort: normal Respiratory: bilateral: diminished, negative: rales, rhonchi, wheezing - Cardiovascular Rhythm: regular Heart Sounds: Present: S1 & S2 - Extremities Extremities: no ischemia, No edema - Abdominal General gastrointestinal: soft, non-tender, non-distended, normal bowel sounds - Integumentary Integumentary: Present: clear, warm - Psychiatric Psychiatric: appropriate mood/affect, cooperative - Neurologic Neurologic: moves all extremities HEART Score - HEART Score EKG: Non-specific Age: 45-65 Risk factors: > 3 risk factors or hx of atherosclerotic disease Troponin: Troponin T 0.104 ng/mL (0.00-0.029) H* D 08/13/20 12:29 Troponin: > 3x normal limit Results - Labs CBC & Chem 7: 08/15/20 05:43 08/15/20 05:43 Labs: Laboratory Last Values WBC 3.9 K/mm3 (4.5-11.0) L 08/15/20 05:43 RBC 3.28 M/mm3 (3.65-5.03) L 08/15/20 05:43 Hgb 10.9 gm/dl (11.8-15.2) L 08/15/20 05:43 Hct 31.6 % (35.5-45.6) L 08/15/20 05:43 MCV 97 fl (84-94) H 08/15/20 05:43 MCH 33 pg (28-32) H 08/15/20 05:43 MCHC 35 % (32-34) H 08/15/20 05:43 RDW 15.7 % (13.2-15.2) H 08/15/20 05:43 Plt Count 76 K/mm3 (140-440) L 08/15/20 05:43 Lymph % (Auto) 17.6 % (13.4-35.0) 08/15/20 05:43 [place] % (Auto) 14.2 % (0.0-7.3) H 08/15/20 05:43 Eos % (Auto) 0.5 % (0.0-4.3) 08/15/20 05:43 Baso % (Auto) 0.3 % (0.0-1.8) 08/15/20 05:43 Lymph # (Auto) 0.7 K/mm3 (1.2-5.4) L 08/15/20 05:43 [place] # (Auto) 0.6 K/mm3 (0.0-0.8) 08/15/20 05:43 Eos # (Auto) 0.0 K/mm3 (0.0-0.4) 08/15/20 05:43 Baso # (Auto) 0.0 K/mm3 (0.0-0.1) 08/15/20 05:43 Add Manual Diff Complete 08/13/20 08:41 Total Counted 100 08/13/20 08:41 Seg Neutrophils % 67.4 % (40.0-70.0) 08/15/20 05:43 Seg Neuts % (Manual) 89.0 % (40.0-70.0) H 08/13/20 08:41 Band Neutrophils % 1.0 % 08/13/20 08:41 Lymphocytes % (Manual) 9.0 % (13.4-35.0) L 08/13/20 08:41 Reactive Lymphs % (Man) 0 % 08/13/20 08:41 Monocytes % (Manual) 0 % (0.0-7.3) 08/13/20 08:41 Eosinophils % (Manual) 0 % (0.0-4.3) 08/13/20 08:41 Basophils % (Manual) 0 % (0.0-1.8) 08/13/20 08:41 Metamyelocytes % 1.0 % 08/13/20 08:41 Myelocytes % 0 % 08/13/20 08:41 Promyelocytes % 0 % 08/13/20 08:41 Blast Cells % 0 % 08/13/20 08:41 Nucleated RBC % Not Reportable 08/13/20 08:41 Seg Neutrophils # 2.6 K/mm3 (1.8-7.7) 08/15/20 05:43 Seg Neutrophils # Man 4.8 K/mm3 (1.8-7.7) 08/13/20 08:41 Band Neutrophils # 0.1 K/mm3 08/13/20 08:41 Lymphocytes # (Manual) 0.5 K/mm3 (1.2-5.4) L 08/13/20 08:41 Abs React Lymphs (Man) 0.0 K/mm3 08/13/20 08:41 Monocytes # (Manual) 0.0 K/mm3 (0.0-0.8) 08/13/20 08:41 Eosinophils # (Manual) 0.0 K/mm3 (0.0-0.4) 08/13/20 08:41 Basophils # (Manual) 0.0 K/mm3 (0.0-0.1) 08/13/20 08:41 Metamyelocytes # 0.1 K/mm3 08/13/20 08:41 Myelocytes # 0.0 K/mm3 08/13/20 08:41 Promyelocytes # 0.0 K/mm3 08/13/20 08:41 Blast Cells # 0.0 K/mm3 08/13/20 08:41 WBC Morphology Not Reportable 08/13/20 08:41 WBC Morphology TNR 08/13/20 08:41 Hypersegmented Neuts Not Reportable 08/13/20 08:41 Hyposegmented Neuts Not Reportable 08/13/20 08:41 Hypogranular Neuts Not Reportable 08/13/20 08:41 Smudge Cells Not Reportable 08/13/20 08:41 Toxic Granulation Not Reportable 08/13/20 08:41 Toxic Vacuolation Not Reportable 08/13/20 08:41 Dohle Bodies Not Reportable 08/13/20 08:41 Pelger-Huet Anomaly Not Reportable 08/13/20 08:41 Elian Rods Not Reportable 08/13/20 08:41 Platelet Estimate Consistent w auto 08/13/20 08:41 Clumped Platelets Not Reportable 08/13/20 08:41 Plt Clumps, EDTA Not Reportable 08/13/20 08:41 Large Platelets Not Reportable 08/13/20 08:41 Giant Platelets Not Reportable 08/13/20 08:41 Platelet Satelliting Not Reportable 08/13/20 08:41 Plt Morphology Comment Not Reportable 08/13/20 08:41 RBC Morphology Not Reportable 08/13/20 08:41 Dimorphic RBCs Not Reportable 08/13/20 08:41 Polychromasia Not Reportable 08/13/20 08:41 Hypochromasia Not Reportable 08/13/20 08:41 Poikilocytosis Not Reportable 08/13/20 08:41 Anisocytosis Not Reportable 08/13/20 08:41 Microcytosis Not Reportable 08/13/20 08:41 Macrocytosis Not Reportable 08/13/20 08:41 Spherocytes Not Reportable 08/13/20 08:41 Pappenheimer Bodies Not Reportable 08/13/20 08:41 Sickle Cells Not Reportable 08/13/20 08:41 Target Cells Not Reportable 08/13/20 08:41 Tear Drop Cells Few 08/13/20 08:41 Ovalocytes Not Reportable 08/13/20 08:41 Helmet Cells Not Reportable 08/13/20 08:41 [place] Bodies Not Reportable 08/13/20 08:41 [place] Rings Not Reportable 08/13/20 08:41 [place] Cells 1+ 08/13/20 08:41 Bite Cells Not Reportable 08/13/20 08:41 Crenated Cell Not Reportable 08/13/20 08:41 Elliptocytes Few 08/13/20 08:41 Acanthocytes (Spur) Not Reportable 08/13/20 08:41 Rouleaux Not Reportable 08/13/20 08:41 Hemoglobin C Crystals Not Reportable 08/13/20 08:41 Schistocytes Not Reportable 08/13/20 08:41 Malaria parasites Not Reportable 08/13/20 08:41 Raza Bodies Not Reportable 08/13/20 08:41 Hem Pathologist Commnt No 08/13/20 08:41 PT 15.8 Sec. (12.2-14.9) H 08/14/20 04:13 INR 1.23 (0.87-1.13) H 08/14/20 04:13 APTT 41.7 Sec. (24.2-36.6) H 08/13/20 Unknown D-Dimer 1557.08 ng/mlDDU (0-234) H 08/13/20 08:41 Sodium 140 mmol/L (137-145) 08/15/20 05:43 Potassium 3.5 mmol/L (3.6-5.0) L 08/15/20 05:43 Chloride 98.2 mmol/L (98-107) 08/15/20 05:43 Carbon Dioxide 26 mmol/L (22-30) 08/15/20 05:43 Anion Gap 19 mmol/L 08/15/20 05:43 BUN 30 mg/dL (9-20) H 08/15/20 05:43 Creatinine 4.2 mg/dL (0.8-1.3) H 08/15/20 05:43 Estimated GFR 17 ml/min 08/15/20 05:43 BUN/Creatinine Ratio 7 % 08/15/20 05:43 Glucose 92 mg/dL (75-100) 08/15/20 05:43 POC Glucose 198 (70-105) H 08/14/20 21:06 Lactic Acid 1.60 mmol/L (0.7-2.0) 08/15/20 05:43 Calcium 9.7 mg/dL (8.4-10.2) 08/15/20 05:43 Ferritin 773.6 ng/mL (30.0-300.0) H 08/13/20 08:41 Total Bilirubin 0.80 mg/dL (0.1-1.2) 08/13/20 00:04 AST 24 units/L (5-40) 08/13/20 00:04 ALT 11 units/L (7-56) 08/13/20 00:04 Alkaline Phosphatase 34 units/L (35-129) L 08/13/20 00:04 Lactate Dehydrogenase 154 units/L (91-180) 08/13/20 08:41 Troponin T 0.104 ng/mL (0.00-0.029) H* D 08/13/20 12:29 C-Reactive Protein 28.70 mg/dL (0.00-1.30) H 08/13/20 08:41 NT-Pro-B Natriuret Pep 53009 pg/mL (0-900) H 08/13/20 00:04 Total Protein 7.6 g/dL (6.3-8.2) 08/13/20 00:04 Albumin 3.3 g/dL (3.9-5) L 08/13/20 00:04 Albumin/Globulin Ratio 0.8 % 08/13/20 00:04 Triglycerides 99 mg/dL (2-149) 08/13/20 00:04 Cholesterol 83 mg/dL (50-199) 08/13/20 00:04 LDL Cholesterol Direct 15 mg/dL (50-130) L 08/13/20 00:04 HDL Cholesterol 51 mg/dL (40-59) 08/13/20 00:04 Cholesterol/HDL Ratio 1.62 % 08/13/20 00:04 Procalcitonin 76.72 ng/mL (<0.15) 08/13/20 08:41 Urine Color Yellow (Yellow) 08/13/20 18:30 Urine Turbidity Clear (Clear) 08/13/20 18:30 Urine pH 5.0 (5.0-7.0) 08/13/20 18:30 Ur Specific [place] 1.016 (1.003-1.030) 08/13/20 18:30 Urine Protein 30 mg/dl mg/dL (Negative) 08/13/20 18:30 Urine Glucose (UA) Neg mg/dL (Negative) 08/13/20 18:30 Urine Ketones Neg mg/dL (Negative) 08/13/20 18:30 Urine Blood Mod (Negative) 08/13/20 18:30 Urine Nitrite Neg (Negative) 08/13/20 18:30 Urine Bilirubin Neg (Negative) 08/13/20 18:30 Urine Urobilinogen < 2.0 mg/dL (<2.0) 08/13/20 18:30 Ur Leukocyte Esterase Neg (Negative) 08/13/20 18:30 Urine WBC (Auto) 1.0 /HPF (0.0-6.0) 08/13/20 18:30 Urine RBC (Auto) < 1.0 /HPF (0.0-6.0) 08/13/20 18:30 U Epithel Cells (Auto) < 1.0 /HPF (0-13.0) 08/13/20 18:30 Urine Mucus Few /HPF 08/13/20 18:30 Nasal Screen MRSA (PCR) Negative (Negative) 08/13/20 13:05 Urine Opiates Screen Presumptive negative 08/13/20 18:30 Urine Methadone Screen Presumptive negative 08/13/20 18:30 Ur Barbiturates Screen Presumptive negative 08/13/20 18:30 Ur Phencyclidine Scrn Presumptive negative 08/13/20 18:30 Ur Amphetamines Screen Presumptive negative 08/13/20 18:30 U Benzodiazepines Scrn Presumptive negative 08/13/20 18:30 Urine Cocaine Screen Presumptive positive 08/13/20 18:30 U Marijuana (THC) Screen Presumptive negative 08/13/20 18:30 Drugs of Abuse Note Disclamer 08/13/20 18:30 Coronavirus (PCR) Negative (Negative) 08/14/20 07:28 Hepatitis A IgM Ab Non-reactive (NonReactive) 08/13/20 12:29 Hep Bs Antigen Non-reactive (Negative) 08/13/20 12:29 Hep B Core IgM Ab Non-reactive (NonReactive) 08/13/20 12:29 Hepatitis C Antibody Reactive (NonReactive) A 08/13/20 12:29 Microbiology: Microbiology 08/12/20 23:52 Peripheral/Venous Blood Culture - Preliminary NO GROWTH AFTER 48 HOURS 08/13/20 00:04 Peripheral/Venous Blood Culture - Preliminary NO GROWTH AFTER 48 HOURS Puente/IV: Voiding Method Urinal IV Catheter Type [Right Hand] INT / Saline Lock IV Catheter Type [Right Wrist] INT / Saline Lock Active Medications - Current Medications Current Medications: Generic Name Dose Route Start Last Admin Trade Name Freq PRN Reason Stop Dose Admin Acetaminophen 650 mg 08/13/20 06:46 Tylenol PO Q6H PRN Pain, Mild (1-3) Albumin Human 25 gm 08/15/20 01:20 08/15/20 01:39 Alburx 25% (Albumin) IV 25 gm KYLE PRN Administration Hypotension Aspirin 325 mg 08/14/20 10:00 08/14/20 09:08 Ecotrin PO 325 mg QDAY AMALIA Administration Diltiazem HCl 30 mg 08/14/20 10:00 08/15/20 02:06 Cardizem PO Not Given Q8H AMALIA Famotidine 10 mg 08/13/20 16:00 08/14/20 09:08 Pepcid PO 10 mg DAILY AMALIA Administration Heparin Sodium (Porcine) 5,000 unit 08/13/20 22:00 08/14/20 21:29 Heparin SUB-Q 5,000 unit Q12HR AMALIA Administration Norepinephrine 4 mg in 250 mls @ 7.5 mls/hr 08/12/20 23:45 Levophed Drip 4 Mg/Ns 250 Ml IV TITR AMALIA Protocol 2 MCG/MIN Cefepime HCl 1 gm in 100 mls @ 200 mls/hr 08/13/20 10:00 08/14/20 09:40 Cefepime/Ns 1 Gm/100 Ml IV Infused Q24HR AMALIA Infusion Sodium Chloride 100 mls @ 999 mls/hr 08/13/20 10:48 Nacl 0.9% IV KYLE PRN Hypotension Magnesium Hydroxide 30 ml 08/13/20 02:14 Milk Of Magnesia PO Q4H PRN Constipation Midodrine 5 mg 08/14/20 12:00 08/14/20 16:12 Proamatine PO 5 mg TID@0800,1200,1600 AMALIA Administration Morphine Sulfate 2 mg 08/13/20 02:14 Morphine IV Q4H PRN Pain, Moderate (4-6) Morphine Sulfate 2 mg 08/13/20 06:46 Morphine IV Q5MIN PRN Chest Pain Nitroglycerin 0.4 mg 08/13/20 06:46 Nitrostat SL Q5M PRN Chest Pain Ondansetron HCl 4 mg 08/13/20 02:14 Zofran IV Q8H PRN Nausea And Vomiting Sodium Chloride 10 ml 08/13/20 10:00 08/14/20 21:31 Sodium Chloride Flush Syringe 10 Ml IV 10 ml BID AMALIA Administration Sodium Chloride 10 ml 08/13/20 02:14 Sodium Chloride Flush Syringe 10 Ml IV PRN PRN LINE FLUSH Nutrition/Malnutrition Assess - Dietary Evaluation Nutrition/Malnutrition Findings: Nutrition Notes Start: 08/13/20 10 :03 Freq: Status: Active Protocol: Document 08/13/20 10:03 CANDIS (Rec: 08/13/20 10:09 CANDIS [email or web address]) Nutrition Notes Need for Assessment generated from: MD Order,hepatology physician,MST, Education Initial or Follow up Brief Note Current Diagnosis CKD (stage V CKD),Coronary Artery Disease,Sepsis, Hypertension,Heart Failure, Respiratory Failure Other Pertinent Diagnosis Pneu, r/o COVID-19, afib with RVR, Hypotension Current Diet Cardiac Labs/Tests BUN 49 Cr 6.9 BG 65 Pertinent Medications Heparin gtt, Levophed gtt, NS at 125ml/hr Height 5 ft 9 in Weight 70.9 kg [place] Body Weight (kg) 72.72 BMI 23.1 Weight Status Appropriate Subjective/Other Information RD consulted for diet education; pt also screened for malnutrition risk (R/T uncertainty of wt loss). Burn Absent Trauma Absent Minimum of two criteria No Is patient on ventilator? No Is Patient Ambulatory and/or Out of Bed No REE-([facility]-confined to bed) 7968.611 Calculation Used for Recommendations [facility] Additional Notes Pro needs >1.2g/kg: >85g/day Fluid needs 1-1.5L/day Nutrition Intervention Anticipated Discharge Needs: Unable to determine at this time Follow-Up By: 08/16/20 Additional Comments F/U: intakes, diet education needs, need for full assessment
--- NOTE | 2020-08-15 08:45 | Progress Note ---
Assessment and Plan Acute hypoxemic respiratory failure, on noninvasive ventilation. Severe sepsis with shock. Left lower lobe pneumonia, likely aspiration. End-stage renal disease, on dialysis. Atrial fibrillation with rapid ventricular response. History of congestive heart failure. Coronary artery disease. History of hypertension. Tobacco use disorder. Pancytopenia -complete antibiotics, on Cefepime Day #3/5 -Pancytopenia, monitor closely -BIPAP qhs and prn for increased work of breathing ( BIPAP 12/6, back up rate 12, FIO2 30%) -ABG, CXR in 48 hours - continue HD/UF for toxin and volume control - accuchecks with glycemic control per SSI (While critically ill target blood glucose of 140-180 mg/dL; avoid hypoglycemia) - continue to wean supplemental oxygen for target O2 sat's > 90% acutely - bronchodilators with pulmonary hygiene per RT - avoid nephrotoxins, renally dose all medications - continue to avoid benzodiazepines, reduce the possibility of delirium - prn analgesia per pain score - Maintenance of sleep-wake cycle, avoid delirium - continue aspiration precautions - VTE prophylaxis- Heparin - PT/OT/ROM exercises - Monitor hemodynamics closely - continue other care per attending / other consultants -Can transfer to telemetry unit Discussed with RT,RN and clinical pharmacist during IDT rounds CONDITION: FAIR PROGNOSIS: FAIR CODE STATUS: FULL CODE Subjective Date of service: 08/15/20 Principal diagnosis: Atrial fibrillation Interval history: Patient is seen today for: Acute hypoxemic respiratory failure, on non invasive ventilation.;Severe sepsis with shock.;Left lower lobe pneumonia, likely aspiration.;End-stage renal disease, on dialysis;Tobacco use disorder. Seen and examined at bedside; 24hour events reviewed; nursing and respiratory care staff consulted; no adverse overnight events reported to me; Tolerated HD and he states he is feeling much better. Currently on supplemental oxygen at 2L/min, BIPAP at the bedside Denies any chest pain, no shortness of breath, no fevers, or chills, no abdominal pain. Tolerated breakfast. Objective - Exam Narrative Exam: - EENT Eyes: Present: PERRL, EOM intact. Absent: scleral icterus ENT: hearing intact, clear oral mucosa, dentition normal - Neck Neck: Present: supple, normal ROM - Respiratory Respiratory effort: normal Respiratory: bilateral: diminished - Cardiovascular Rhythm: irregularly irregular Heart Sounds: Present: S1 & S2. Absent: gallop, systolic murmur, diastolic murmur, rub - Extremities Extremities: no ischemia, pulses intact, pulses symmetrical, No edema, Full ROM Peripheral Pulses: within normal limits - Abdominal General gastrointestinal: Present: soft, non-tender, non-distended, normal bowel sounds. Absent: mass - Integumentary Integumentary: Present: clear, warm, dry. Absent: rash - Musculoskeletal Musculoskeletal: strength equal bilaterally - Psychiatric Psychiatric: appropriate mood/affect, intact judgment & insight, memory intact, cooperative - Neurologic Neurologic: CNII-XII intact, no focal deficits, moves all extremities Vital Signs - 12hr 08/14/20 08/14/20 08/14/20 21:00 21:12 22:01 Temperature Pulse Rate 85 75 Pulse Rate [ From Monitor] Respiratory 20 19 Rate Blood Pressure 98/52 100/54 O2 Sat by Pulse 97 100 Oximetry O2 Sat by Pulse Oximetry [ Anterior Bilateral Throughout] 08/14/20 08/14/20 08/14/20 23:00 23:43 23:45 Temperature 98.2 F Pulse Rate 90 83 67 Pulse Rate [ From Monitor] Respiratory 26 H 24 18 Rate Blood Pressure 98/65 119/66 110/66 O2 Sat by Pulse 95 100 Oximetry O2 Sat by Pulse 99 Oximetry [ Anterior Bilateral Throughout] 08/15/20 08/15/20 08/15/20 00:00 00:15 00:30 Temperature 97.6 F Pulse Rate 106 H 90 88 Pulse Rate [ 92 H From Monitor] Respiratory 23 Rate Blood Pressure 104/76 112/75 110/64 O2 Sat by Pulse 98 Oximetry O2 Sat by Pulse Oximetry [ Anterior Bilateral Throughout] 08/15/20 08/15/20 08/15/20 00:45 01:00 01:15 Temperature Pulse Rate 93 H 99 H 92 H Pulse Rate [ From Monitor] Respiratory 17 Rate Blood Pressure 108/67 109/67 101/64 O2 Sat by Pulse 100 Oximetry O2 Sat by Pulse Oximetry [ Anterior Bilateral Throughout] 08/15/20 08/15/20 08/15/20 01:30 01:45 02:00 Temperature Pulse Rate 90 88 92 H Pulse Rate [ From Monitor] Respiratory Rate Blood Pressure 95/59 91/60 91/67 O2 Sat by Pulse Oximetry O2 Sat by Pulse Oximetry [ Anterior Bilateral Throughout] 08/15/20 08/15/20 08/15/20 02:01 02:06 02:15 Temperature Pulse Rate 98 H 98 H 98 H Pulse Rate [ From Monitor] Respiratory 20 Rate Blood Pressure 91/67 91/67 106/67 O2 Sat by Pulse 100 Oximetry O2 Sat by Pulse Oximetry [ Anterior Bilateral Throughout] 08/15/20 08/15/20 08/15/20 02:30 02:45 03:00 Temperature 97.5 F L Pulse Rate 83 991 H 89 Pulse Rate [ From Monitor] Respiratory 23 Rate Blood Pressure 98/48 92/45 102/72 O2 Sat by Pulse 100 Oximetry O2 Sat by Pulse Oximetry [ Anterior Bilateral Throughout] 08/15/20 08/15/20 08/15/20 04:00 05:00 06:00 Temperature 97.6 F Pulse Rate 95 H 89 89 Pulse Rate [ 95 H From Monitor] Respiratory 22 22 19 Rate Blood Pressure 107/71 98/53 97/68 O2 Sat by Pulse 100 100 100 Oximetry O2 Sat by Pulse Oximetry [ Anterior Bilateral Throughout] 08/15/20 07:56 Temperature Pulse Rate Pulse Rate [ From Monitor] Respiratory Rate Blood Pressure O2 Sat by Pulse 98 Oximetry O2 Sat by Pulse Oximetry [ Anterior Bilateral Throughout] CBC and BMP: 08/15/20 05:43 08/15/20 05:43 ABG, PT/INR, D-dimer: PT/INR, D-dimer PT 15.8 Sec. (12.2-14.9) H 08/14/20 04:13 INR 1.23 (0.87-1.13) H 08/14/20 04:13 D-Dimer 1557.08 ng/mlDDU (0-234) H 08/13/20 08:41 Abnormal lab findings: Abnormal Labs 08/13/20 08/13/20 08/13/20 00:04 00:04 00:04 WBC RBC 3.59 L Hgb Hct MCV 99 H MCH 33 H MCHC RDW 16.8 H Plt Count 84 L Lymph % (Auto) [place] % (Auto) Lymph # (Auto) Seg Neutrophils % Seg Neuts % (Manual) 84.0 H Lymphocytes % (Manual) 2.0 L Lymphocytes # (Manual) 0.1 L PT INR APTT D-Dimer Potassium Chloride 95.1 L Carbon Dioxide 18 L BUN 44 H Creatinine 7.0 H Glucose 66 L POC Glucose Lactic Acid Calcium Ferritin Alkaline Phosphatase 34 L Troponin T 0.049 H C-Reactive Protein NT-Pro-B Natriuret Pep 26527 H Albumin 3.3 L LDL Cholesterol Direct 15 L Hepatitis C Antibody 08/13/20 08/13/20 08/13/20 00:04 02:20 02:20 WBC RBC Hgb Hct MCV MCH MCHC RDW Plt Count Lymph % (Auto) [place] % (Auto) Lymph # (Auto) Seg Neutrophils % Seg Neuts % (Manual) Lymphocytes % (Manual) Lymphocytes # (Manual) PT INR APTT D-Dimer Potassium Chloride Carbon Dioxide BUN Creatinine Glucose POC Glucose Lactic Acid 6.10 H* 6.80 H* Calcium Ferritin Alkaline Phosphatase Troponin T 0.045 H C-Reactive Protein NT-Pro-B Natriuret Pep Albumin LDL Cholesterol Direct Hepatitis C Antibody 08/13/20 08/13/20 08/13/20 02:32 03:51 06:14 WBC RBC Hgb Hct MCV MCH MCHC RDW Plt Count Lymph % (Auto) [place] % (Auto) Lymph # (Auto) Seg Neutrophils % Seg Neuts % (Manual) Lymphocytes % (Manual) Lymphocytes # (Manual) PT INR APTT D-Dimer Potassium Chloride Carbon Dioxide BUN Creatinine Glucose POC Glucose 65 L 116 H Lactic Acid Calcium Ferritin Alkaline Phosphatase Troponin T 0.057 H D C-Reactive Protein NT-Pro-B Natriuret Pep Albumin LDL Cholesterol Direct Hepatitis C Antibody 08/13/20 08/13/20 08/13/20 06:14 08:41 08:41 WBC RBC 3.47 L Hgb Hct MCV 105 H MCH 34 H MCHC RDW 17.8 H Plt Count 72 L Lymph % (Auto) [place] % (Auto) Lymph # (Auto) Seg Neutrophils % Seg Neuts % (Manual) 89.0 H Lymphocytes % (Manual) 9.0 L Lymphocytes # (Manual) 0.5 L PT INR APTT D-Dimer Potassium Chloride Carbon Dioxide 19 L BUN 49 H Creatinine 6.9 H Glucose 65 L POC Glucose Lactic Acid 6.40 H* Calcium 8.0 L Ferritin Alkaline Phosphatase Troponin T C-Reactive Protein NT-Pro-B Natriuret Pep Albumin LDL Cholesterol Direct Hepatitis C Antibody 08/13/20 08/13/20 08/13/20 08:41 08:41 08:41 WBC RBC Hgb Hct MCV MCH MCHC RDW Plt Count Lymph % (Auto) [place] % (Auto) Lymph # (Auto) Seg Neutrophils % Seg Neuts % (Manual) Lymphocytes % (Manual) Lymphocytes # (Manual) PT INR APTT D-Dimer 1557.08 H Potassium Chloride Carbon Dioxide BUN Creatinine Glucose POC Glucose Lactic Acid Calcium Ferritin 773.6 H Alkaline Phosphatase Troponin T C-Reactive Protein 28.70 H NT-Pro-B Natriuret Pep Albumin LDL Cholesterol Direct Hepatitis C Antibody 08/13/20 08/13/20 08/13/20 10:51 12:29 12:29 WBC RBC Hgb Hct MCV MCH MCHC RDW Plt Count Lymph % (Auto) [place] % (Auto) Lymph # (Auto) Seg Neutrophils % Seg Neuts % (Manual) Lymphocytes % (Manual) Lymphocytes # (Manual) PT INR APTT D-Dimer Potassium Chloride Carbon Dioxide BUN Creatinine Glucose POC Glucose 109 H Lactic Acid Calcium Ferritin Alkaline Phosphatase Troponin T 0.104 H* D C-Reactive Protein NT-Pro-B Natriuret Pep Albumin LDL Cholesterol Direct Hepatitis C Antibody Reactive A 08/13/20 08/13/20 08/13/20 14:13 23:15 Unknown WBC RBC Hgb Hct MCV MCH MCHC RDW Plt Count Lymph % (Auto) [place] % (Auto) Lymph # (Auto) Seg Neutrophils % Seg Neuts % (Manual) Lymphocytes % (Manual) Lymphocytes # (Manual) PT 21.7 H INR 1.85 H APTT 41.7 H D-Dimer Potassium Chloride Carbon Dioxide BUN Creatinine Glucose POC Glucose 116 H Lactic Acid 2.60 H* Calcium Ferritin Alkaline Phosphatase Troponin T C-Reactive Protein NT-Pro-B Natriuret Pep Albumin LDL Cholesterol Direct Hepatitis C Antibody 08/14/20 08/14/20 08/14/20 04:13 04:13 04:13 WBC RBC 3.35 L Hgb 11.0 L Hct 32.8 L MCV 98 H MCH 33 H MCHC RDW 16.2 H Plt Count 63 L Lymph % (Auto) 7.0 L [place] % (Auto) 8.2 H Lymph # (Auto) 0.4 L Seg Neutrophils % 84.6 H Seg Neuts % (Manual) Lymphocytes % (Manual) Lymphocytes # (Manual) PT 15.8 H INR 1.23 H APTT D-Dimer Potassium Chloride Carbon Dioxide BUN Creatinine Glucose POC Glucose Lactic Acid 2.40 H* Calcium Ferritin Alkaline Phosphatase Troponin T C-Reactive Protein NT-Pro-B Natriuret Pep Albumin LDL Cholesterol Direct Hepatitis C Antibody 08/14/20 08/14/20 08/14/20 04:13 11:55 16:36 WBC RBC Hgb Hct MCV MCH MCHC RDW Plt Count Lymph % (Auto) [place] % (Auto) Lymph # (Auto) Seg Neutrophils % Seg Neuts % (Manual) Lymphocytes % (Manual) Lymphocytes # (Manual) PT INR APTT D-Dimer Potassium Chloride Carbon Dioxide BUN 31 H Creatinine 4.9 H Glucose 104 H POC Glucose 125 H 125 H Lactic Acid Calcium Ferritin Alkaline Phosphatase Troponin T C-Reactive Protein NT-Pro-B Natriuret Pep Albumin LDL Cholesterol Direct Hepatitis C Antibody 08/14/20 08/15/20 08/15/20 21:06 05:43 05:43 WBC 3.9 L RBC 3.28 L Hgb 10.9 L Hct 31.6 L MCV 97 H MCH 33 H MCHC 35 H RDW 15.7 H Plt Count 76 L Lymph % (Auto) [place] % (Auto) 14.2 H Lymph # (Auto) 0.7 L Seg Neutrophils % Seg Neuts % (Manual) Lymphocytes % (Manual) Lymphocytes # (Manual) PT INR APTT D-Dimer Potassium 3.5 L Chloride Carbon Dioxide BUN 30 H Creatinine 4.2 H Glucose POC Glucose 198 H Lactic Acid Calcium Ferritin Alkaline Phosphatase Troponin T C-Reactive Protein NT-Pro-B Natriuret Pep Albumin LDL Cholesterol Direct Hepatitis C Antibody 08/15/20 08:15 WBC RBC Hgb Hct MCV MCH MCHC RDW Plt Count Lymph % (Auto) [place] % (Auto) Lymph # (Auto) Seg Neutrophils % Seg Neuts % (Manual) Lymphocytes % (Manual) Lymphocytes # (Manual) PT INR APTT D-Dimer Potassium Chloride Carbon Dioxide BUN Creatinine Glucose POC Glucose 113 H Lactic Acid Calcium Ferritin Alkaline Phosphatase Troponin T C-Reactive Protein NT-Pro-B Natriuret Pep Albumin LDL Cholesterol Direct Hepatitis C Antibody Chest x-ray: image reviewed Allied health notes reviewed: RT
[2020-08-15] MEDS: CEFEPIME/NS 1 GM/100 ML 1 GM/100 ML BAG IV SCH (09:03)
[2020-08-15] MEDS: HEPARIN 5,000 UNIT/1 ML VIAL SUB-Q SCH ×2 (09:03→22:55)
[2020-08-15] MEDS: FAMOTIDINE 10 MG TAB PO SCH (09:04)
[2020-08-15] MEDS: MIDODRINE 2.5 MG TAB PO SCH ×3 (09:04→17:03)
[2020-08-15] MEDS: ASPIRIN EC 325 MG TAB PO SCH (09:06)
--- NOTE | 2020-08-15 12:27 | Progress Note ---
Assessment and Plan Persistent atrial fibrillation No anticoagulation due to hemoptysis and thrombocytopenia on diltiazem Severe septic shock Lactic acidosis Pneumonia Covid 19 negative ESRD on HD Non-specific troponin No ischemic ECG changes Hypertension Thrombocytopenia Recommendations: Continue rate control of chronic atrial fibrillation. Obtain records from [facility] for cardiac review. Subjective Date of service: 08/15/20 Principal diagnosis: Atrial fibrillation Interval history: Patient is resting in bed and has no cardiac complaints. Atrial fibrillation with a well controlled ventricular rate on telemetry. Patient reports a history of arrhythmias and is followed by [facility]. It is unclear if the patient takes oral anticoagulation as an outpatient. Objective Vital Signs Temp Pulse Pulse Resp BP Pulse Ox Pulse Ox 08/15/20 11:01 79 12 95/59 97 08/15/20 10:01 88 22 100/57 96 08/15/20 09:17 99 H 109/62 08/15/20 09:00 84 22 90/49 98 08/15/20 08:01 85 17 105/73 96 08/15/20 08:00 98.1 F 77 101 H 22 100 08/15/20 07:56 98 08/15/20 07:00 94 H 25 H 108/58 100 08/15/20 06:00 89 19 97/68 100 08/15/20 05:00 89 22 98/53 100 08/15/20 04:00 97.6 F 95 H 95 H 22 107/71 100 08/15/20 03:00 97.5 F L 89 23 102/72 100 08/15/20 02:45 991 H 92/45 08/15/20 02:30 83 98/48 08/15/20 02:15 98 H 106/67 08/15/20 02:06 98 H 91/67 08/15/20 02:01 98 H 20 91/67 100 08/15/20 02:00 92 H 91/67 08/15/20 01:45 88 91/60 08/15/20 01:30 90 95/59 08/15/20 01:15 92 H 101/64 08/15/20 01:00 99 H 17 109/67 100 08/15/20 00:45 93 H 108/67 08/15/20 00:30 88 110/64 08/15/20 00:15 90 112/75 08/15/20 00:00 97.6 F 106 H 92 H 23 104/76 98 08/14/20 23:45 98.2 F 67 18 110/66 99 08/14/20 23:43 83 24 119/66 100 08/14/20 23:00 90 26 H 98/65 95 08/14/20 22:01 75 19 100/54 100 08/14/20 21:12 97 08/14/20 21:00 85 20 98/52 08/14/20 20:01 86 25 H 88/52 96 08/14/20 20:00 97.6 F 86 86 96 08/14/20 19:00 91 H 28 H 97/66 98 08/14/20 18:00 89 19 117/59 97 08/14/20 17:20 109/57 08/14/20 17:00 93 H 13 109/57 96 08/14/20 16:01 92 H 19 99/48 100 08/14/20 16:00 98.2 F 89 08/14/20 15:00 82 24 90/66 100 08/14/20 14:01 80 25 H 130/99 100 08/14/20 13:01 82 24 106/69 100 - Physical Examination General: No Apparent Distress, Cachectic HEENT: Positive: PERRL Cardiac: Positive: irregularly irregular - Labs and Meds CBC 08/15/20 Range/Units 05:43 WBC 3.9 L (4.5-11.0) K/mm3 RBC 3.28 L (3.65-5.03) M/mm3 Hgb 10.9 L (11.8-15.2) gm/dl Hct 31.6 L (35.5-45.6) % Plt Count 76 L (140-440) K/mm3 Lymph # (Auto) 0.7 L (1.2-5.4) K/mm3 [place] # (Auto) 0.6 (0.0-0.8) K/mm3 Eos # (Auto) 0.0 (0.0-0.4) K/mm3 Baso # (Auto) 0.0 (0.0-0.1) K/mm3 Comprehensive Metabolic Panel 08/15/20 Range/Units 05:43 Sodium 140 (137-145) mmol/L Potassium 3.5 L (3.6-5.0) mmol/L Chloride 98.2 (98-107) mmol/L Carbon Dioxide 26 (22-30) mmol/L BUN 30 H (9-20) mg/dL Creatinine 4.2 H (0.8-1.3) mg/dL Glucose 92 (75-100) mg/dL Calcium 9.7 (8.4-10.2) mg/dL - Allied health notes Allied health notes reviewed: RT
[2020-08-15] MEDS: ACETAMINOPHEN 325 MG TAB PO PRN (12:45)
--- NOTE | 2020-08-15 15:48 | Progress Note ---
Assessment and Plan Assessment: ESRD on Hemodialysis: Sepsis due to Pneumonia: Pneumonia due to infectious agent: Afib with RVR: HTN: CHF: Plan: -S/P hemodialysis yesterday for UF and clearance -Next HD session will be tomorrow -Fluid restriction of 1 liter per day -Renally dose all meds -Strict I/Os monitoring -Assess dialysis needs daily Subjective Date of service: 08/15/20 Principal diagnosis: Atrial fibrillation Interval history: Patient seen lying in bed undergoing beside ultrasound Objective - Vital Signs Vital signs: Vital Signs - 12hr 08/15/20 08/15/20 08/15/20 04:00 05:00 06:00 Temperature 97.6 F Pulse Rate 95 H 89 89 Pulse Rate [ 95 H From Monitor] Respiratory 22 22 19 Rate Blood Pressure 107/71 98/53 97/68 O2 Sat by Pulse 100 100 100 Oximetry 08/15/20 08/15/20 08/15/20 07:00 07:56 08:00 Temperature 98.1 F Pulse Rate 94 H 77 Pulse Rate [ 101 H From Monitor] Respiratory 25 H 22 Rate Blood Pressure 108/58 O2 Sat by Pulse 100 98 100 Oximetry 08/15/20 08/15/20 08/15/20 08:01 09:00 09:17 Temperature Pulse Rate 85 84 99 H Pulse Rate [ From Monitor] Respiratory 17 22 Rate Blood Pressure 105/73 90/49 109/62 O2 Sat by Pulse 96 98 Oximetry 08/15/20 08/15/20 08/15/20 10:01 11:01 12:00 Temperature 98.2 F Pulse Rate 88 79 77 Pulse Rate [ 77 From Monitor] Respiratory 22 12 22 Rate Blood Pressure 100/57 95/59 O2 Sat by Pulse 96 97 98 Oximetry 08/15/20 08/15/20 12:01 13:01 Temperature Pulse Rate 88 85 Pulse Rate [ From Monitor] Respiratory 19 23 Rate Blood Pressure 104/75 122/82 O2 Sat by Pulse 95 71 L Oximetry - General Appearance General appearance: well-developed, appears stated age EENT: ATNC Neck: no JVD, supple Respiratory: Present: Decreased Breath Sounds Cardiology: S1S2 Gastrointestinal: normoactive bowel sounds Integumentary: warm and dry Neurologic: no focal deficit Musculoskeletal: other (No edema) - Lab 08/15/20 05:43 08/15/20 05:43 Most recent lab results Calcium 9.7 mg/dL (8.4-10.2) 08/15/20 05:43 Medications & Allergies - Medications Allergies/Adverse Reactions: Allergies No Known Allergies Allergy (Unverified 08/12/20 23:21) Home Medications: Home Medications Medication Instructions Recorded Confirmed Last Taken Type No Known Home Medications [No 08/14/20 08/14/20 Unknown History Reported Home Medications] Active Medications: Generic Name Dose Route Start Last Admin Trade Name Freq PRN Reason Stop Dose Admin Acetaminophen 650 mg 08/13/20 06:46 08/15/20 12:45 Tylenol PO 650 mg Q6H PRN Administration Pain, Mild (1-3) Albumin Human 25 gm 08/15/20 01:20 08/15/20 01:39 Alburx 25% (Albumin) IV 25 gm KYLE PRN Administration Hypotension Aspirin 325 mg 08/14/20 10:00 08/15/20 09:06 Ecotrin PO 325 mg QDAY AMALIA Administration Diltiazem HCl 30 mg 08/14/20 10:00 08/15/20 09:17 Cardizem PO 30 mg Q8H AMALIA Administration Famotidine 10 mg 08/13/20 16:00 08/15/20 09:04 Pepcid PO 10 mg DAILY AMALIA Administration Heparin Sodium (Porcine) 5,000 unit 08/13/20 22:00 08/15/20 09:03 Heparin SUB-Q 5,000 unit Q12HR AMALIA Administration Norepinephrine 4 mg in 250 mls @ 7.5 mls/hr 08/12/20 23:45 Levophed Drip 4 Mg/Ns 250 Ml IV TITR AMALIA Protocol 2 MCG/MIN Cefepime HCl 1 gm in 100 mls @ 200 mls/hr 08/13/20 10:00 08/15/20 09:03 Cefepime/Ns 1 Gm/100 Ml IV 08/17/20 10:29 200 mls/hr Q24HR AMALIA Administration Sodium Chloride 100 mls @ 999 mls/hr 08/13/20 10:48 Nacl 0.9% IV KYLE PRN Hypotension Magnesium Hydroxide 30 ml 08/13/20 02:14 Milk Of Magnesia PO Q4H PRN Constipation Midodrine 5 mg 08/14/20 12:00 08/15/20 12:45 Proamatine PO 5 mg TID@0800,1200,1600 AMALIA Administration Morphine Sulfate 2 mg 10/17/20 02:14 Morphine IV Q4H PRN Pain, Moderate (4-6) Morphine Sulfate 2 mg 08/13/20 06:46 Morphine IV Q5MIN PRN Chest Pain Nitroglycerin 0.4 mg 08/13/20 06:46 Nitrostat SL Q5M PRN Chest Pain Ondansetron HCl 4 mg 08/13/20 02:14 Zofran IV Q8H PRN Nausea And Vomiting Sodium Chloride 10 ml 08/13/20 10:00 08/15/20 09:03 Sodium Chloride Flush Syringe 10 Ml IV 10 ml BID AMALIA Administration Sodium Chloride 10 ml 08/13/20 02:14 Sodium Chloride Flush Syringe 10 Ml IV PRN PRN LINE FLUSH
[2020-08-16] MEDS: dilTIAZem 30 MG TAB PO SCH ×2 (02:50→09:01)
[2020-08-16] MEDS: ACETAMINOPHEN 325 MG TAB PO PRN (08:25)
[2020-08-16] MEDS: MIDODRINE 2.5 MG TAB PO SCH ×3 (08:26→16:40)
[2020-08-16] MEDS: HEPARIN 5,000 UNIT/1 ML VIAL SUB-Q SCH ×2 (09:00→21:48)
[2020-08-16] MEDS: ASPIRIN EC 325 MG TAB PO SCH (09:00)
[2020-08-16] MEDS: FAMOTIDINE 10 MG TAB PO SCH (09:00)
--- NOTE | 2020-08-16 10:25 | Progress Note ---
Assessment and Plan Patient awake and resting on 2 litres O2. O2 saturation 100%. Still complaining chest pain, shortness of breath and cough. Patient afebrile. No leukocytosis. Chest xray done 08/14/20 reported There is increased pleural and parenchymal disease on the left. Patient is on cefepime. Recommend diagnostic left thoracentesis by interventional radiology. - Patient Problems (1) Pneumonia Current Visit: Yes Status: Acute Qualifiers: Pneumonia type: due to unspecified organism Laterality: unspecified later ality Lung location: unspecified part of lung Qualified Code(s): J18.9 - Pneumonia, unspecified organism Plan to address problem: Patient is on cefepime. (2) Pleural effusion, left Current Visit: Yes Status: Acute Plan to address problem: Recommend left thoracentesis by interventional radiology. (3) Respiratory failure Current Visit: Yes Status: Acute Qualifiers: Chronicity: acute Respiratory failure complication: hypoxia Qualified Code(s): J96.01 - Acute respiratory failure with hypoxia Plan to address problem: Patient is on 2 litres o2. O2 saturation 100%. Albuterol/atrovent aerosol treatments q 6 hours. ABGs on room air. (4) Atrial fibrillation with RVR Current Visit: Yes Status: Acute Plan to address problem: Patient is on Diltiazem. Management as per cardiology. (5) Chest pain Current Visit: Yes Status: Acute Qualifiers: Chest pain type: unspecified Qualified Code(s): R07.9 - Chest pain, unspecified Plan to address problem: Management as per cardiology. (6) ESRD (end stage renal disease) on dialysis Current Visit: Yes Status: Acute Plan to address problem: Management as per nephrology. (7) Hypotension Current Visit: Yes Status: Acute Qualifiers: Hypotension type: unspecified hypotension type Qualified Code(s): I95.9 - Hypotension, unspecified Plan to address problem: Blood pressure improved. Recent blood pressure 125/77 (8) Sepsis Current Visit: Yes Status: Acute Qualifiers: Sepsis type: sepsis due to unspecified organism Sepsis acute organ dysfunction status: with acute organ dysfunction Severe sepsis acute organ dysfunction type: acute respiratory failure Acute respiratory failure type: with hypoxia Severe sepsis shock status: without septic shock Qualified Code(s): A41.9 - Sepsis, unspecified organism; R65.20 - Severe sepsis without septic shock; J96.01 - Acute respiratory failure with hypoxia Plan to address problem: Patient is on cefepime. Subjective Date of service: 08/16/20 Principal diagnosis: Atrial fibrillation Interval history: Patient awake and resting on 2 litres O2. O2 saturation 100%. Still complaining chest pain, shortness of breath and cough. Patient afebrile. No leukocytosis. Chest xray done 08/14/20 reported There is increased pleural and parenchymal disease on the left. Patient is on cefepime. Recommend diagnostic left thoracentesis by interventional radiology. Objective Vital Signs - 12hr 08/15/20 08/16/20 08/16/20 23:12 00:00 02:50 Temperature 98.3 F Pulse Rate 73 80 68 Respiratory 16 Rate Blood Pressure 104/71 102/64 O2 Sat by Pulse 100 Oximetry 08/16/20 08/16/20 08/16/20 04:00 04:11 07:28 Temperature 98.0 F 97.9 F Pulse Rate 66 66 76 Respiratory 16 20 Rate Blood Pressure 110/67 125/77 O2 Sat by Pulse 100 100 Oximetry 08/16/20 09:01 Temperature Pulse Rate 76 Respiratory Rate Blood Pressure 125/77 O2 Sat by Pulse Oximetry Constitutional: no acute distress, alert, other (Weak.) Eyes: non-icteric ENT: oropharynx moist Neck: supple, no lymphadenopathy Ascultation: Left: diminished breath sounds (left base.) Cardiovascular: irregular rhythm Gastrointestinal: normoactive bowel sounds, soft, non-tender Integumentary: normal Extremities: no cyanosis, no edema Neurologic: non-focal exam, pupils equal and round Psychiatric: depressed CBC and BMP: 08/15/20 05:43 08/15/20 05:43 ABG, PT/INR, D-dimer: PT/INR, D-dimer PT 15.8 Sec. (12.2-14.9) H 08/14/20 04:13 INR 1.23 (0.87-1.13) H 08/14/20 04:13 D-Dimer 1557.08 ng/mlDDU (0-234) H 08/13/20 08:41 Abnormal lab findings: Abnormal Labs 08/13/20 08/13/20 08/13/20 00:04 00:04 00:04 WBC RBC 3.59 L Hgb Hct MCV 99 H MCH 33 H MCHC RDW 16.8 H Plt Count 84 L Lymph % (Auto) Bee % (Auto) Lymph # (Auto) Seg Neutrophils % Seg Neuts % (Manual) 84.0 H Lymphocytes % (Manual) 2.0 L Lymphocytes # (Manual) 0.1 L PT INR APTT D-Dimer Potassium Chloride 95.1 L Carbon Dioxide 18 L BUN 44 H Creatinine 7.0 H Glucose 66 L POC Glucose Lactic Acid Calcium Ferritin Alkaline Phosphatase 34 L Troponin T 0.049 H C-Reactive Protein NT-Pro-B Natriuret Pep 31815 H Albumin 3.3 L LDL Cholesterol Direct 15 L Hepatitis C Antibody 08/13/20 08/13/20 08/13/20 00:04 02:20 02:20 WBC RBC Hgb Hct MCV MCH MCHC RDW Plt Count Lymph % (Auto) Bee % (Auto) Lymph # (Auto) Seg Neutrophils % Seg Neuts % (Manual) Lymphocytes % (Manual) Lymphocytes # (Manual) PT INR APTT D-Dimer Potassium Chloride Carbon Dioxide BUN Creatinine Glucose POC Glucose Lactic Acid 6.10 H* 6.80 H* Calcium Ferritin Alkaline Phosphatase Troponin T 0.045 H C-Reactive Protein NT-Pro-B Natriuret Pep Albumin LDL Cholesterol Direct Hepatitis C Antibody 08/13/20 08/13/20 08/13/20 02:32 03:51 06:14 WBC RBC Hgb Hct MCV MCH MCHC RDW Plt Count Lymph % (Auto) Bee % (Auto) Lymph # (Auto) Seg Neutrophils % Seg Neuts % (Manual) Lymphocytes % (Manual) Lymphocytes # (Manual) PT INR APTT D-Dimer Potassium Chloride Carbon Dioxide BUN Creatinine Glucose POC Glucose 65 L 116 H Lactic Acid Calcium Ferritin Alkaline Phosphatase Troponin T 0.057 H D C-Reactive Protein NT-Pro-B Natriuret Pep Albumin LDL Cholesterol Direct Hepatitis C Antibody 08/13/20 08/13/20 08/13/20 06:14 08:41 08:41 WBC RBC 3.47 L Hgb Hct MCV 105 H MCH 34 H MCHC RDW 17.8 H Plt Count 72 L Lymph % (Auto) Bee % (Auto) Lymph # (Auto) Seg Neutrophils % Seg Neuts % (Manual) 89.0 H Lymphocytes % (Manual) 9.0 L Lymphocytes # (Manual) 0.5 L PT INR APTT D-Dimer Potassium Chloride Carbon Dioxide 19 L BUN 49 H Creatinine 6.9 H Glucose 65 L POC Glucose Lactic Acid 6.40 H* Calcium 8.0 L Ferritin Alkaline Phosphatase Troponin T C-Reactive Protein NT-Pro-B Natriuret Pep Albumin LDL Cholesterol Direct Hepatitis C Antibody 08/13/20 08/13/20 08/13/20 08:41 08:41 08:41 WBC RBC Hgb Hct MCV MCH MCHC RDW Plt Count Lymph % (Auto) Bee % (Auto) Lymph # (Auto) Seg Neutrophils % Seg Neuts % (Manual) Lymphocytes % (Manual) Lymphocytes # (Manual) PT INR APTT D-Dimer 1557.08 H Potassium Chloride Carbon Dioxide BUN Creatinine Glucose POC Glucose Lactic Acid Calcium Ferritin 773.6 H Alkaline Phosphatase Troponin T C-Reactive Protein 28.70 H NT-Pro-B Natriuret Pep Albumin LDL Cholesterol Direct Hepatitis C Antibody 08/13/20 08/13/20 08/13/20 10:51 12:29 12:29 WBC RBC Hgb Hct MCV MCH MCHC RDW Plt Count Lymph % (Auto) Bee % (Auto) Lymph # (Auto) Seg Neutrophils % Seg Neuts % (Manual) Lymphocytes % (Manual) Lymphocytes # (Manual) PT INR APTT D-Dimer Potassium Chloride Carbon Dioxide BUN Creatinine Glucose POC Glucose 109 H Lactic Acid Calcium Ferritin Alkaline Phosphatase Troponin T 0.104 H* D C-Reactive Protein NT-Pro-B Natriuret Pep Albumin LDL Cholesterol Direct Hepatitis C Antibody Reactive A 08/13/20 08/13/20 08/13/20 14:13 23:15 Unknown WBC RBC Hgb Hct MCV MCH MCHC RDW Plt Count Lymph % (Auto) Bee % (Auto) Lymph # (Auto) Seg Neutrophils % Seg Neuts % (Manual) Lymphocytes % (Manual) Lymphocytes # (Manual) PT 21.7 H INR 1.85 H APTT 41.7 H D-Dimer Potassium Chloride Carbon Dioxide BUN Creatinine Glucose POC Glucose 116 H Lactic Acid 2.60 H* Calcium Ferritin Alkaline Phosphatase Troponin T C-Reactive Protein NT-Pro-B Natriuret Pep Albumin LDL Cholesterol Direct Hepatitis C Antibody 08/14/20 08/14/20 08/14/20 04:13 04:13 04:13 WBC RBC 3.35 L Hgb 11.0 L Hct 32.8 L MCV 98 H MCH 33 H MCHC RDW 16.2 H Plt Count 63 L Lymph % (Auto) 7.0 L Bee % (Auto) 8.2 H Lymph # (Auto) 0.4 L Seg Neutrophils % 84.6 H Seg Neuts % (Manual) Lymphocytes % (Manual) Lymphocytes # (Manual) PT 15.8 H INR 1.23 H APTT D-Dimer Potassium Chloride Carbon Dioxide BUN Creatinine Glucose POC Glucose Lactic Acid 2.40 H* Calcium Ferritin Alkaline Phosphatase Troponin T C-Reactive Protein NT-Pro-B Natriuret Pep Albumin LDL Cholesterol Direct Hepatitis C Antibody 08/14/20 08/14/20 08/14/20 04:13 11:55 16:36 WBC RBC Hgb Hct MCV MCH MCHC RDW Plt Count Lymph % (Auto) Bee % (Auto) Lymph # (Auto) Seg Neutrophils % Seg Neuts % (Manual) Lymphocytes % (Manual) Lymphocytes # (Manual) PT INR APTT D-Dimer Potassium Chloride Carbon Dioxide BUN 31 H Creatinine 4.9 H Glucose 104 H POC Glucose 125 H 125 H Lactic Acid Calcium Ferritin Alkaline Phosphatase Troponin T C-Reactive Protein NT-Pro-B Natriuret Pep Albumin LDL Cholesterol Direct Hepatitis C Antibody 08/14/20 08/15/20 08/15/20 21:06 05:43 05:43 WBC 3.9 L RBC 3.28 L Hgb 10.9 L Hct 31.6 L MCV 97 H MCH 33 H MCHC 35 H RDW 15.7 H Plt Count 76 L Lymph % (Auto) Bee % (Auto) 14.2 H Lymph # (Auto) 0.7 L Seg Neutrophils % Seg Neuts % (Manual) Lymphocytes % (Manual) Lymphocytes # (Manual) PT INR APTT D-Dimer Potassium 3.5 L Chloride Carbon Dioxide BUN 30 H Creatinine 4.2 H Glucose POC Glucose 198 H Lactic Acid Calcium Ferritin Alkaline Phosphatase Troponin T C-Reactive Protein NT-Pro-B Natriuret Pep Albumin LDL Cholesterol Direct Hepatitis C Antibody 08/15/20 08/15/20 08:15 17:18 WBC RBC Hgb Hct MCV MCH MCHC RDW Plt Count Lymph % (Auto) Bee % (Auto) Lymph # (Auto) Seg Neutrophils % Seg Neuts % (Manual) Lymphocytes % (Manual) Lymphocytes # (Manual) PT INR APTT D-Dimer Potassium Chloride Carbon Dioxide BUN Creatinine Glucose POC Glucose 113 H 108 H Lactic Acid Calcium Ferritin Alkaline Phosphatase Troponin T C-Reactive Protein NT-Pro-B Natriuret Pep Albumin LDL Cholesterol Direct Hepatitis C Antibody Chest x-ray: report reviewed, image reviewed Additional Studies: CHEST 1 VIEW 08/14/20 INDICATION / CLINICAL INFORMATION: congestion. COMPARISON: 08/12/2020 FINDINGS: SUPPORT DEVICES: None. HEART / MEDIASTINUM: Unchanged LUNGS / PLEURA: There is increased left pleural and parenchymal opacity... No pneumothorax. ADDITIONAL FINDINGS: No significant additional findings. IMPRESSION: 1. There is increased pleural and parenchymal disease on the left. Allied health notes reviewed: RT
--- NOTE | 2020-08-16 10:28 | Progress Note ---
Assessment and Plan ESRD on Hemodialysis: Sepsis due to Pneumonia: Pneumonia due to infectious agent: Afib with RVR: HTN: CHF: Plan: - HD today for clearance and volume removal -Fluid restriction of 1 liter per day -Renally dose all meds -Strict I/Os monitoring -Assess dialysis needs daily Subjective Date of service: 08/16/20 Principal diagnosis: Atrial fibrillation Interval history: some occasional left sided pain, denies SOB, fevers Objective - Vital Signs Vital signs: Vital Signs - 12hr 08/15/20 08/16/20 08/16/20 23:12 00:00 02:50 Temperature 98.3 F Pulse Rate 73 80 68 Respiratory 16 Rate Blood Pressure 104/71 102/64 O2 Sat by Pulse 100 Oximetry 08/16/20 08/16/20 08/16/20 04:00 04:11 07:28 Temperature 98.0 F 97.9 F Pulse Rate 66 66 76 Respiratory 16 20 Rate Blood Pressure 110/67 125/77 O2 Sat by Pulse 100 100 Oximetry 08/16/20 09:01 Temperature Pulse Rate 76 Respiratory Rate Blood Pressure 125/77 O2 Sat by Pulse Oximetry - General Appearance General appearance: well-developed, well-nourished EENT: ATNC, PERRL, mucous membranes moist Neck: no JVD, no carotid bruit Respiratory: Present: Clear to Ascultation. Absent: Rales, Ronchi Cardiology: irregular Gastrointestinal: normoactive bowel sounds, no hypoactive bowel sounds, no absent bowel sounds, no tenderness, no distended Integumentary: no rash, warm and dry Neurologic: no focal deficit, no asterixis Musculoskeletal: other (no edema in BLE) Psychiatric: mood/affect appropriate, cooperative - Lab 08/15/20 05:43 08/15/20 05:43 Most recent lab results Calcium 9.7 mg/dL (8.4-10.2) 08/15/20 05:43 Medications & Allergies - Medications Allergies/Adverse Reactions: Allergies No Known Allergies Allergy (Unverified 08/12/20 23:21) Home Medications: Home Medications Medication Instructions Recorded Confirmed Last Taken Type No Known Home Medications [No 08/14/20 08/14/20 Unknown History Reported Home Medications] Active Medications: Generic Name Dose Route Start Last Admin Trade Name Freq PRN Reason Stop Dose Admin Acetaminophen 650 mg 08/13/20 06:46 08/16/20 08:25 Tylenol PO 650 mg Q6H PRN Administration Pain, Mild (1-3) Albumin Human 25 gm 08/15/20 01:20 08/15/20 01:39 Alburx 25% (Albumin) IV 25 gm KYLE PRN Administration Hypotension Aspirin 325 mg 08/14/20 10:00 08/16/20 09:00 Ecotrin PO 325 mg QDAY AMALIA Administration Diltiazem HCl 30 mg 08/14/20 10:00 08/16/20 09:01 Cardizem PO 30 mg Q8H AMALIA Administration Famotidine 10 mg 08/13/20 16:00 08/16/20 09:00 Pepcid PO 10 mg DAILY AMALIA Administration Heparin Sodium (Porcine) 5,000 unit 08/13/20 22:00 08/16/20 09:00 Heparin SUB-Q 5,000 unit Q12HR AMALIA Administration Cefepime HCl 1 gm in 100 mls @ 200 mls/hr 08/13/20 10:00 08/15/20 09:03 Cefepime/Ns 1 Gm/100 Ml IV 08/17/20 10:29 200 mls/hr Q24HR AMALIA Administration Sodium Chloride 100 mls @ 999 mls/hr 08/13/20 10:48 Nacl 0.9% IV KYLE PRN Hypotension Magnesium Hydroxide 30 ml 08/13/20 02:14 Milk Of Magnesia PO Q4H PRN Constipation Midodrine 5 mg 08/14/20 12:00 08/16/20 08:26 Proamatine PO 5 mg TID@0800,1200,1600 AMALIA Administration Morphine Sulfate 2 mg 08/13/20 02:14 Morphine IV Q4H PRN Pain, Moderate (4-6) Nitroglycerin 0.4 mg 08/13/20 06:46 Nitrostat SL Q5M PRN Chest Pain Ondansetron HCl 4 mg 08/13/20 02:14 Zofran IV Q8H PRN Nausea And Vomiting Sodium Chloride 10 ml 08/13/20 10:00 08/16/20 09:01 Sodium Chloride Flush Syringe 10 Ml IV 10 ml BID AMALIA Administration Sodium Chloride 10 ml 08/13/20 02:14 Sodium Chloride Flush Syringe 10 Ml IV PRN PRN LINE FLUSH
--- NOTE | 2020-08-16 10:47 | Progress Note ---
Assessment and Plan Persistent atrial fibrillation No anticoagulation due to thrombocytopenia on diltiazem Echocardiogram shows a 4 chamber dilated cardiomyopathy, EF 20-25%. There is moderate MR, moderate to severe TR and moderate pulmonary HTN, RVSP 53 mm HG. The chronicity is likely chronic. Severe septic shock Lactic acidosis Pneumonia Covid 19 negative ESRD on HD Non-specific troponin No ischemic ECG changes Hypertension Thrombocytopenia Recommendations: Continue rate control of chronic atrial fibrillation. Patient determined a poor risk for term oral anticoagulation due to thrombocytopenia. Obtain records from [place] for cardiac review. Subjective Date of service: 08/16/20 Principal diagnosis: Atrial fibrillation Interval history: Patient is resting in bed and has no cardiac complaints. Atrial fibrillation with a well controlled ventricular rate on telemetry. Objective Vital Signs Temp Pulse Pulse Pulse Resp BP Pulse Ox 08/16/20 09:01 76 125/77 08/16/20 07:28 97.9 F 76 20 125/77 100 08/16/20 04:11 98.0 F 66 16 110/67 100 08/16/20 04:00 66 08/16/20 02:50 68 102/64 08/16/20 00:00 80 08/15/20 23:12 98.3 F 73 16 104/71 100 08/15/20 22:00 68 73 19 96 08/15/20 21:15 98 08/15/20 20:00 73 08/15/20 19:35 97.7 F 68 16 112/70 99 08/15/20 17:43 72 127/69 08/15/20 17:40 127/69 08/15/20 17:00 89 17 98/65 95 08/15/20 16:00 98.3 F 77 73 19 98/64 96 08/15/20 15:01 85 24 101/67 100 08/15/20 14:00 83 21 102/65 98 08/15/20 13:01 85 23 122/82 71 L 08/15/20 12:01 88 19 104/75 95 08/15/20 12:00 98.2 F 77 77 22 98 08/15/20 11:01 79 12 95/59 97 - Physical Examination General: No Apparent Distress, Cachectic HEENT: Positive: PERRL Neck: Positive: trachea midline Cardiac: Positive: irregularly irregular - Allied health notes Allied health notes reviewed: RT
[2020-08-16] MEDS: CEFEPIME/NS 1 GM/100 ML 1 GM/100 ML BAG IV SCH (11:42)
[2020-08-16] MEDS: carvediloL 3.125 MG TAB PO SCH ×2 (13:01→21:48)
--- NOTE | 2020-08-16 18:24 | Progress Note ---
Assessment and Plan Assessment and plan: --COVID-19 test; - 08/14/2020 --Acute hypoxic respiratory failure; requiring BiPAP Oxygen titrate O2 sats to more than 90% BiPAP as needed, supportive care --Septic shock: Off Levophed On IV antibiotics and follow-up cultures. Patient is also on midodrine --Suspected COVID-19 pneumonia: Negative Covid test --Possible pneumonia; continue cefepime for total 5 days Day 4 of 5, last dose tomorrow, supportive care --ESRD: On HD Hemodialysis per schedule, nephrology following. --NSTEMI type 2: Etiology likely secondary to sepsis. Cardiology following --Atrial fibrillation with RVR: Rate controlled Continue p.o. Cardizem 30 mg every 8 hours. Patient currently not on anticoagulation due to Thrombocytopenia and hemoptysis Continue aspirin 325 mg daily Cardiology cleared for discharge --Hypertension: Patient actually hypotensive from sepsis. Closely monitor blood pressures --DVT prophylaxis; Heparin renal dose We will closely monitor the patient and adjust management as needed Possible discharge home tomorrow if stable History Interval history: I have seen and examined the patient at the bedside today Patient's chart and medications reviewed Patient admitted with acute respiratory failure, pneumonia on IV antibiotics No new complaints today Vital signs noted Hospitalist Physical - Constitutional Vitals: Temp Pulse Resp BP Pulse Ox 97.9 F 68 20 114/70 99 08/16/20 07:28 08/16/20 16:00 08/16/20 12:22 08/16/20 13:01 08/16/20 12:52 General appearance: Present: no acute distress, well-nourished - EENT Eyes: Present: PERRL, EOM intact - Neck Neck: Present: supple, normal ROM - Respiratory Respiratory effort: normal Respiratory: bilateral: diminished, rhonchi, negative: rales, wheezing - Cardiovascular Rhythm: regular Heart Sounds: Present: S1 & S2 - Extremities Extremities: no ischemia, No edema - Abdominal General gastrointestinal: soft, non-tender, non-distended, normal bowel sounds - Integumentary Integumentary: Present: clear, warm - Psychiatric Psychiatric: appropriate mood/affect, cooperative - Neurologic Neurologic: CNII-XII intact, moves all extremities HEART Score - HEART Score EKG: Non-specific Age: 45-65 Risk factors: > 3 risk factors or hx of atherosclerotic disease Troponin: Troponin T 0.104 ng/mL (0.00-0.029) H* D 08/13/20 12:29 Troponin: > 3x normal limit Results - Labs CBC & Chem 7: 08/15/20 05:43 08/15/20 05:43 Labs: Laboratory Last Values WBC 3.9 K/mm3 (4.5-11.0) L 08/15/20 05:43 RBC 3.28 M/mm3 (3.65-5.03) L 08/15/20 05:43 Hgb 10.9 gm/dl (11.8-15.2) L 08/15/20 05:43 Hct 31.6 % (35.5-45.6) L 08/15/20 05:43 MCV 97 fl (84-94) H 08/15/20 05:43 MCH 33 pg (28-32) H 08/15/20 05:43 MCHC 35 % (32-34) H 08/15/20 05:43 RDW 15.7 % (13.2-15.2) H 08/15/20 05:43 Plt Count 76 K/mm3 (140-440) L 08/15/20 05:43 Lymph % (Auto) 17.6 % (13.4-35.0) 08/15/20 05:43 [place] % (Auto) 14.2 % (0.0-7.3) H 08/15/20 05:43 Eos % (Auto) 0.5 % (0.0-4.3) 08/15/20 05:43 Baso % (Auto) 0.3 % (0.0-1.8) 08/15/20 05:43 Lymph # (Auto) 0.7 K/mm3 (1.2-5.4) L 08/15/20 05:43 [place] # (Auto) 0.6 K/mm3 (0.0-0.8) 08/15/20 05:43 Eos # (Auto) 0.0 K/mm3 (0.0-0.4) 08/15/20 05:43 Baso # (Auto) 0.0 K/mm3 (0.0-0.1) 08/15/20 05:43 Add Manual Diff Complete 08/13/20 08:41 Total Counted 100 08/13/20 08:41 Seg Neutrophils % 67.4 % (40.0-70.0) 08/15/20 05:43 Seg Neuts % (Manual) 89.0 % (40.0-70.0) H 08/13/20 08:41 Band Neutrophils % 1.0 % 08/13/20 08:41 Lymphocytes % (Manual) 9.0 % (13.4-35.0) L 08/13/20 08:41 Reactive Lymphs % (Man) 0 % 08/13/20 08:41 Monocytes % (Manual) 0 % (0.0-7.3) 08/13/20 08:41 Eosinophils % (Manual) 0 % (0.0-4.3) 08/13/20 08:41 Basophils % (Manual) 0 % (0.0-1.8) 08/13/20 08:41 Metamyelocytes % 1.0 % 08/13/20 08:41 Myelocytes % 0 % 08/13/20 08:41 Promyelocytes % 0 % 08/13/20 08:41 Blast Cells % 0 % 08/13/20 08:41 Nucleated RBC % Not Reportable 08/13/20 08:41 Seg Neutrophils # 2.6 K/mm3 (1.8-7.7) 08/15/20 05:43 Seg Neutrophils # Man 4.8 K/mm3 (1.8-7.7) 08/13/20 08:41 Band Neutrophils # 0.1 K/mm3 08/13/20 08:41 Lymphocytes # (Manual) 0.5 K/mm3 (1.2-5.4) L 08/13/20 08:41 Abs React Lymphs (Man) 0.0 K/mm3 08/13/20 08:41 Monocytes # (Manual) 0.0 K/mm3 (0.0-0.8) 08/13/20 08:41 Eosinophils # (Manual) 0.0 K/mm3 (0.0-0.4) 08/13/20 08:41 Basophils # (Manual) 0.0 K/mm3 (0.0-0.1) 08/13/20 08:41 Metamyelocytes # 0.1 K/mm3 08/13/20 08:41 Myelocytes # 0.0 K/mm3 08/13/20 08:41 Promyelocytes # 0.0 K/mm3 08/13/20 08:41 Blast Cells # 0.0 K/mm3 08/13/20 08:41 WBC Morphology Not Reportable 08/13/20 08:41 WBC Morphology TNR 08/13/20 08:41 Hypersegmented Neuts Not Reportable 08/13/20 08:41 Hyposegmented Neuts Not Reportable 08/13/20 08:41 Hypogranular Neuts Not Reportable 08/13/20 08:41 Smudge Cells Not Reportable 08/13/20 08:41 Toxic Granulation Not Reportable 08/13/20 08:41 Toxic Vacuolation Not Reportable 08/13/20 08:41 Dohle Bodies Not Reportable 08/13/20 08:41 Pelger-Huet Anomaly Not Reportable 08/13/20 08:41 Elian Rods Not Reportable 08/13/20 08:41 Platelet Estimate Consistent w auto 08/13/20 08:41 Clumped Platelets Not Reportable 08/13/20 08:41 Plt Clumps, EDTA Not Reportable 08/13/20 08:41 Large Platelets Not Reportable 08/13/20 08:41 Giant Platelets Not Reportable 08/13/20 08:41 Platelet Satelliting Not Reportable 08/13/20 08:41 Plt Morphology Comment Not Reportable 08/13/20 08:41 RBC Morphology Not Reportable 08/13/20 08:41 Dimorphic RBCs Not Reportable 08/13/20 08:41 Polychromasia Not Reportable 08/13/20 08:41 Hypochromasia Not Reportable 08/13/20 08:41 Poikilocytosis Not Reportable 08/13/20 08:41 Anisocytosis Not Reportable 08/13/20 08:41 Microcytosis Not Reportable 08/13/20 08:41 Macrocytosis Not Reportable 08/13/20 08:41 Spherocytes Not Reportable 08/13/20 08:41 Pappenheimer Bodies Not Reportable 08/13/20 08:41 Sickle Cells Not Reportable 08/13/20 08:41 Target Cells Not Reportable 08/13/20 08:41 Tear Drop Cells Few 08/13/20 08:41 Ovalocytes Not Reportable 08/13/20 08:41 Helmet Cells Not Reportable 08/13/20 08:41 [place] Bodies Not Reportable 08/13/20 08:41 [place] Rings Not Reportable 08/13/20 08:41 [place] Cells 1+ 08/13/20 08:41 Bite Cells Not Reportable 08/13/20 08:41 Crenated Cell Not Reportable 08/13/20 08:41 Elliptocytes Few 08/13/20 08:41 Acanthocytes (Spur) Not Reportable 08/13/20 08:41 Rouleaux Not Reportable 08/13/20 08:41 Hemoglobin C Crystals Not Reportable 08/13/20 08:41 Schistocytes Not Reportable 08/13/20 08:41 Malaria parasites Not Reportable 08/13/20 08:41 Raza Bodies Not Reportable 08/13/20 08:41 Hem Pathologist Commnt No 08/13/20 08:41 PT 15.8 Sec. (12.2-14.9) H 08/14/20 04:13 INR 1.23 (0.87-1.13) H 08/14/20 04:13 APTT 41.7 Sec. (24.2-36.6) H 08/13/20 Unknown D-Dimer 1557.08 ng/mlDDU (0-234) H 08/13/20 08:41 Sodium 140 mmol/L (137-145) 08/15/20 05:43 Potassium 3.5 mmol/L (3.6-5.0) L 08/15/20 05:43 Chloride 98.2 mmol/L (98-107) 08/15/20 05:43 Carbon Dioxide 26 mmol/L (22-30) 08/15/20 05:43 Anion Gap 19 mmol/L 08/15/20 05:43 BUN 30 mg/dL (9-20) H 08/15/20 05:43 Creatinine 4.2 mg/dL (0.8-1.3) H 08/15/20 05:43 Estimated GFR 17 ml/min 08/15/20 05:43 BUN/Creatinine Ratio 7 % 08/15/20 05:43 Glucose 92 mg/dL (75-100) 08/15/20 05:43 POC Glucose 120 mg/dL (70-105) H 08/16/20 13:44 Lactic Acid 1.60 mmol/L (0.7-2.0) 08/15/20 05:43 Calcium 9.7 mg/dL (8.4-10.2) 08/15/20 05:43 Ferritin 773.6 ng/mL (30.0-300.0) H 08/13/20 08:41 Total Bilirubin 0.80 mg/dL (0.1-1.2) 08/13/20 00:04 AST 24 units/L (5-40) 08/13/20 00:04 ALT 11 units/L (7-56) 08/13/20 00:04 Alkaline Phosphatase 34 units/L (35-129) L 08/13/20 00:04 Lactate Dehydrogenase 154 units/L (91-180) 08/13/20 08:41 Troponin T 0.104 ng/mL (0.00-0.029) H* D 08/13/20 12:29 C-Reactive Protein 28.70 mg/dL (0.00-1.30) H 08/13/20 08:41 NT-Pro-B Natriuret Pep 48148 pg/mL (0-900) H 08/13/20 00:04 Total Protein 7.6 g/dL (6.3-8.2) 08/13/20 00:04 Albumin 3.3 g/dL (3.9-5) L 08/13/20 00:04 Albumin/Globulin Ratio 0.8 % 08/13/20 00:04 Triglycerides 99 mg/dL (2-149) 08/13/20 00:04 Cholesterol 83 mg/dL (50-199) 08/13/20 00:04 LDL Cholesterol Direct 15 mg/dL (50-130) L 08/13/20 00:04 HDL Cholesterol 51 mg/dL (40-59) 08/13/20 00:04 Cholesterol/HDL Ratio 1.62 % 08/13/20 00:04 Procalcitonin 76.72 ng/mL (<0.15) 08/13/20 08:41 Urine Color Yellow (Yellow) 08/13/20 18:30 Urine Turbidity Clear (Clear) 08/13/20 18:30 Urine pH 5.0 (5.0-7.0) 08/13/20 18:30 Ur Specific [place] 1.016 (1.003-1.030) 08/13/20 18:30 Urine Protein 30 mg/dl mg/dL (Negative) 08/13/20 18:30 Urine Glucose (UA) Neg mg/dL (Negative) 08/13/20 18:30 Urine Ketones Neg mg/dL (Negative) 08/13/20 18:30 Urine Blood Mod (Negative) 08/13/20 18:30 Urine Nitrite Neg (Negative) 08/13/20 18:30 Urine Bilirubin Neg (Negative) 08/13/20 18:30 Urine Urobilinogen < 2.0 mg/dL (<2.0) 08/13/20 18:30 Ur Leukocyte Esterase Neg (Negative) 08/13/20 18:30 Urine WBC (Auto) 1.0 /HPF (0.0-6.0) 08/13/20 18:30 Urine RBC (Auto) < 1.0 /HPF (0.0-6.0) 08/13/20 18:30 U Epithel Cells (Auto) < 1.0 /HPF (0-13.0) 08/13/20 18:30 Urine Mucus Few /HPF 08/13/20 18:30 Nasal Screen MRSA (PCR) Negative (Negative) 08/13/20 13:05 Urine Opiates Screen Presumptive negative 08/13/20 18:30 Urine Methadone Screen Presumptive negative 08/13/20 18:30 Ur Barbiturates Screen Presumptive negative 08/13/20 18:30 Ur Phencyclidine Scrn Presumptive negative 08/13/20 18:30 Ur Amphetamines Screen Presumptive negative 08/13/20 18:30 U Benzodiazepines Scrn Presumptive negative 08/13/20 18:30 Urine Cocaine Screen Presumptive positive 08/13/20 18:30 U Marijuana (THC) Screen Presumptive negative 08/13/20 18:30 Drugs of Abuse Note Disclamer 08/13/20 18:30 Coronavirus (PCR) Negative (Negative) 08/14/20 07:28 Hepatitis A IgM Ab Non-reactive (NonReactive) 08/13/20 12:29 Hep Bs Antigen Non-reactive (Negative) 08/13/20 12:29 Hep B Core IgM Ab Non-reactive (NonReactive) 08/13/20 12:29 Hepatitis C Antibody Reactive (NonReactive) A 08/13/20 12:29 Microbiology: Microbiology 08/12/20 23:52 Peripheral/Venous Blood Culture - Preliminary NO GROWTH AFTER 72 HOURS 08/13/20 00:04 Peripheral/Venous Blood Culture - Preliminary NO GROWTH AFTER 72 HOURS - Diagnostic Impressions Diagnostic Impressions: Echocardiogram 08/13/20 06:47 Transthoracic Echocardiogram Indication: Chest pain BP: 115/70 HR: 88 Conclusions *4-chamber dilated cardiomyopathy. *Global left ventricular systolic function is severely decreased. *The estimated ejection fraction is 25-30%. *Moderate to severe concentric left ventricular hypertrophy is observed. *There is mild to moderate aortic regurgitation. *There is moderate mitral regurgitation. *There is at least moderately-severe tricuspid regurgitation. *There is moderate to severe pulmonary hypertension. *The right ventricular systolic pressure is calculated at 53 mmHg. Findings Left Ventricle: The left ventricular chamber size is moderately dilated. Moderate to severe concentric left ventricular hypertrophy is observed. Global left ventricular systolic function is severely decreased. The estimated ejection fraction is 25-30%. Left Atrium: The left atrium is moderate to severely dilated. Right Ventricle: The right ventricle is mild to moderately dilated. The right ventricular global systolic function is moderately reduced. Right Atrium: The right atrial cavity size is severely dilated. Aortic Valve: The aortic valve is trileaflet. The aortic valve leaflets are mildly thickened. There is mild to moderate aortic regurgitation. There is no evidence of aortic stenosis. Mitral Valve: The mitral valve leaflets are mildly thickened. There is moderate mitral regurgitation. There is no evidence of mitral stenosis. Tricuspid Valve: There is moderate to severe tricuspid regurgitation. The right ventricular systolic pressure is calculated at 53 mmHg. There is evidence of moderate pulmonary hypertension. Pulmonic Valve: There is mild pulmonic regurgitation. Pericardium: There is no pericardial effusion. Aorta: There is no dilatation of the ascending aorta. There is no dilatation of the aortic root. Venous: The inferior vena cava is dilated. Measurements Chambers 2D Name Value Normal Range IVSd (2D) 1.41 cm (0.6 - 1.1) LVPWd (2D) 1.44 cm (0.6 - 1.1) LVIDd (2D) 5.94 cm (3.7 - 5.6) LVIDs (2D) 4.85 cm (2 - 3.8) LV FS (2D) 18.22 % - EF Teichholz (2D) 37.16 % - Ao root diameter (2D) 3.62 cm (2 - 3.7) Volumes/Mass Name Value Normal Range LA ESV SP 4CH (A/L) 90.8 ml - LA ESV SP 2CH (A/L) 212.2 ml - LA ESV BP (A/L) 145.73 ml - LA ESV BP (A/L) index 78.35 ml/m2 - LA ESV SP 4CH (MOD) 87.11 ml - LA ESV SP 2CH (MOD) 210.5 ml - LA ESV BP (MOD) 141.48 ml - LA ESV BP (MOD) index 76.07 ml/m2 - Diastolic/Systolic Function Name Value Normal Range MV E-wave Vmax 1.19 m/sec - MV deceleration time 198.97 msec - Aortic Valve Name Value Normal Range AV Vmax 1.71 m/sec - AV VTI 24.3 cm - AV peak gradient 11.68 mmHg - AV mean gradient 6.21 mmHg - LVOT diameter 2.2 cm - LVOT Vmax 1.06 m/sec - LVOT VTI 14.99 cm - LVOT peak gradient 4.5 mmHg - LVOT mean gradient 2.26 mmHg - SV LVOT 57.18 ml - JATIN (continuity Vmax) 2.36 cm2 - JATIN (continuity VTI) 2.35 cm2 - AR PHT 655.58 msec - AR peak gradient 76.5 mmHg - Mitral Valve Name Value Normal Range MR Vmax 4.72 m/sec - Tricuspid Valve Name Value Normal Range TR Vmax 3.11 m/sec - TR peak gradient 38 mmHg - RAP 15 mmHg - RVSP 53 mmHg - IVC diameter 3.07 cm (1.2 - 2.3) Pulmonic Valve/Qp:Qs Name Value Normal Range PV Vmax 0.66 m/sec - PV peak gradient 1.76 mmHg - [place] end-diastolic Vmax 1.87 m/sec - PV acceleration time 110.37 msec - Puente/IV: Voiding Method Urinal IV Catheter Type [Right Hand] INT / Saline Lock IV Catheter Type [Right Wrist] INT / Saline Lock Active Medications - Current Medications Current Medications: Generic Name Dose Route Start Last Admin Trade Name Freq PRN Reason Stop Dose Admin Acetaminophen 650 mg 08/13/20 06:46 08/16/20 08:25 Tylenol PO 650 mg Q6H PRN Administration Pain, Mild (1-3) Albumin Human 25 gm 08/15/20 01:20 08/15/20 01:39 Alburx 25% (Albumin) IV 25 gm KYLE PRN Administration Hypotension Aspirin 325 mg 08/14/20 10:00 08/16/20 09:00 Ecotrin PO 325 mg QDAY AMALIA Administration Carvedilol 3.125 mg 08/16/20 14:00 08/16/20 13:01 Coreg PO 3.125 mg BID AMALIA Administration Famotidine 10 mg 08/13/20 16:00 08/16/20 09:00 Pepcid PO 10 mg DAILY AMALIA Administration Heparin Sodium (Porcine) 5,000 unit 08/13/20 22:00 08/16/20 09:00 Heparin SUB-Q 5,000 unit Q12HR AMALIA Administration Cefepime HCl 1 gm in 100 mls @ 200 mls/hr 08/13/20 10:00 08/16/20 11:42 Cefepime/Ns 1 Gm/100 Ml IV 08/17/20 10:29 200 mls/hr Q24HR AMALIA Administration Sodium Chloride 100 mls @ 999 mls/hr 08/13/20 10:48 Nacl 0.9% IV KYLE PRN Hypotension Magnesium Hydroxide 30 ml 08/13/20 02:14 Milk Of Magnesia PO Q4H PRN Constipation Midodrine 5 mg 08/14/20 12:00 08/16/20 16:40 Proamatine PO 5 mg TID@0800,1200,1600 AMALIA Administration Morphine Sulfate 2 mg 08/13/20 02:14 Morphine IV Q4H PRN Pain, Moderate (4-6) Nitroglycerin 0.4 mg 08/13/20 06:46 Nitrostat SL Q5M PRN Chest Pain Ondansetron HCl 4 mg 08/13/20 02:14 Zofran IV Q8H PRN Nausea And Vomiting Sodium Chloride 10 ml 08/13/20 10:00 08/16/20 09:01 Sodium Chloride Flush Syringe 10 Ml IV 10 ml BID AMALIA Administration Sodium Chloride 10 ml 08/13/20 02:14 Sodium Chloride Flush Syringe 10 Ml IV PRN PRN LINE FLUSH Nutrition/Malnutrition Assess - Dietary Evaluation Nutrition/Malnutrition Findings: Nutrition Notes Start: 08/13/20 10:03 Freq: Status: Active Protocol: Document 08/16/20 11:22 FANI (Rec: 08/16/20 11:53 BK [id number]) Co-Sign 08/16/20 11:22 LM Nutrition Notes Initial or Follow up Assessment Current Diagnosis CKD (stage V CKD),Coronary Artery Disease,Sepsis, Hypertension,Heart Failure, Respiratory Failure Other Pertinent Diagnosis Pneu, r/o COVID-19, afib with RVR, Hypotension Current Diet Cardiac Renal Labs/Tests 08/15 K 3.5 BUN 30 Cr 4.2 Pertinent Medications Heparin Height 5 ft 9 in Weight 70.9 kg [place] Body Weight (kg) 72.72 BMI 23.1 Weight Status Appropriate Subjective/Other Information F/U for intakes and diet education needs. Pt reports consuming 50% meals and N/V. Pt given diet education for HTN. Burn Absent Trauma Absent GI Symptoms Nausea,Vomiting Current % PO Fair (50-74%) Minimum of two criteria No physical signs of malnutrition #2 Nutrition Diagnosis Food and nutrition-related knowledge deficit Etiology No prior diet education As Evidenced by Signs and Symptoms Pt had questions #1 Nutrition Diagnosis Inadequate oral intake Etiology N/V As Evidenced by Signs and Symptoms Pt consuming 50% meals Is patient on ventilator? No Is Patient Ambulatory and/or Out of Bed No REE-([place]-confined to bed) [phone] Calculation Used for Recommendations [place] Additional Notes Pro needs >1.2g/kg: >85g/day Fluid needs 1-1.5L/day Nutrition Intervention Change Diet Order: Continue Cardiac Renal Teaching Recipient Patient Learning Readiness Good Teaching Methods Discussion,Handout Response to Teaching Verbalize understanding Education Handouts Provided Hypertension Nutrition Therapy Barriers to Learning No Barriers RD phone number provided Yes Patient aware of follow up options Yes Goal #1 Meet at least 80% energy and protein needs Anticipated Discharge Needs: Cardiac Renal diet Follow-Up By: 08/18/20 Additional Comments F/U for intakes
[2020-08-17] MEDS: MIDODRINE 2.5 MG TAB PO SCH ×2 (08:22→15:10)
--- NOTE | 2020-08-17 09:11 | Progress Note ---
Assessment and Plan Assessment and plan: --COVID-19 test; - 08/14/2020 --Acute hypoxic respiratory failure; requiring BiPAP Oxygen ,titrate O2 sats to more than 90% Patient did not require BiPAP last 2 days On 2 L nasal cannula oxygen Evaluate for home O2 --Possible pneumonia; continue cefepime for total 5 days Day 4 of 5, last dose today, symptoms improved Pulmonary following --Septic shock: Off Levophed On IV antibiotics and follow-up cultures. Patient is also on midodrine --ESRD: On HD Hemodialysis per schedule, nephrology following. --NSTEMI type 2: In the setting of ESRD. Cardiology following --Atrial fibrillation with RVR: Rate controlled Cardiology changed Cardizem to Coreg Patient currently not on anticoagulation due to Thrombocytopenia and hemoptysis Continue aspirin 325 mg daily --Hypertension: Patient actually hypotensive from sepsis. Closely monitor blood pressures --DVT prophylaxis; Heparin renal dose We will closely monitor the patient and adjust management as needed Possible discharge home tomorrow if stable Hospitalist Physical - Constitutional Vitals: Temp Pulse Resp BP Pulse Ox 98.2 F 97 H 18 115/73 96 08/17/20 07:41 08/17/20 07:41 08/17/20 07:41 08/17/20 07:41 08/17/20 07:41 General appearance: Present: no acute distress, well-nourished HEART Score - HEART Score EKG: Non-specific Age: 45-65 Risk factors: > 3 risk factors or hx of atherosclerotic disease Troponin: Troponin T 0.104 ng/mL (0.00-0.029) H* D 08/13/20 12:29 Troponin: > 3x normal limit Results - Labs CBC & Chem 7: 08/15/20 05:43 08/15/20 05:43 Labs: Laboratory Last Values WBC 3.9 K/mm3 (4.5-11.0) L 08/15/20 05:43 RBC 3.28 M/mm3 (3.65-5.03) L 08/15/20 05:43 Hgb 10.9 gm/dl (11.8-15.2) L 08/15/20 05:43 Hct 31.6 % (35.5-45.6) L 08/15/20 05:43 MCV 97 fl (84-94) H 08/15/20 05:43 MCH 33 pg (28-32) H 08/15/20 05:43 MCHC 35 % (32-34) H 08/15/20 05:43 RDW 15.7 % (13.2-15.2) H 08/15/20 05:43 Plt Count 76 K/mm3 (140-440) L 08/15/20 05:43 Lymph % (Auto) 17.6 % (13.4-35.0) 08/15/20 05:43 [place] % (Auto) 14.2 % (0.0-7.3) H 08/15/20 05:43 Eos % (Auto) 0.5 % (0.0-4.3) 08/15/20 05:43 Baso % (Auto) 0.3 % (0.0-1.8) 08/15/20 05:43 Lymph # (Auto) 0.7 K/mm3 (1.2-5.4) L 08/15/20 05:43 [place] # (Auto) 0.6 K/mm3 (0.0-0.8) 08/15/20 05:43 Eos # (Auto) 0.0 K/mm3 (0.0-0.4) 08/15/20 05:43 Baso # (Auto) 0.0 K/mm3 (0.0-0.1) 08/15/20 05:43 Add Manual Diff Complete 08/13/20 08:41 Total Counted 100 08/13/20 08:41 Seg Neutrophils % 67.4 % (40.0-70.0) 08/15/20 05:43 Seg Neuts % (Manual) 89.0 % (40.0-70.0) H 08/13/20 08:41 Band Neutrophils % 1.0 % 08/13/20 08:41 Lymphocytes % (Manual) 9.0 % (13.4-35.0) L 08/13/20 08:41 Reactive Lymphs % (Man) 0 % 08/13/20 08:41 Monocytes % (Manual) 0 % (0.0-7.3) 08/13/20 08:41 Eosinophils % (Manual) 0 % (0.0-4.3) 08/13/20 08:41 Basophils % (Manual) 0 % (0.0-1.8) 08/13/20 08:41 Metamyelocytes % 1.0 % 08/13/20 08:41 Myelocytes % 0 % 08/13/20 08:41 Promyelocytes % 0 % 08/13/20 08:41 Blast Cells % 0 % 08/13/20 08:41 Nucleated RBC % Not Reportable 08/13/20 08:41 Seg Neutrophils # 2.6 K/mm3 (1.8-7.7) 08/15/20 05:43 Seg Neutrophils # Man 4.8 K/mm3 (1.8-7.7) 08/13/20 08:41 Band Neutrophils # 0.1 K/mm3 08/13/20 08:41 Lymphocytes # (Manual) 0.5 K/mm3 (1.2-5.4) L 08/13/20 08:41 Abs React Lymphs (Man) 0.0 K/mm3 08/13/20 08:41 Monocytes # (Manual) 0.0 K/mm3 (0.0-0.8) 08/13/20 08:41 Eosinophils # (Manual) 0.0 K/mm3 (0.0-0.4) 08/13/20 08:41 Basophils # (Manual) 0.0 K/mm3 (0.0-0.1) 08/13/20 08:41 Metamyelocytes # 0.1 K/mm3 08/13/20 08:41 Myelocytes # 0.0 K/mm3 08/13/20 08:41 Promyelocytes # 0.0 K/mm3 08/13/20 08:41 Blast Cells # 0.0 K/mm3 08/13/20 08:41 WBC Morphology Not Reportable 08/13/20 08:41 WBC Morphology TNR 08/13/20 08:41 Hypersegmented Neuts Not Reportable 08/13/20 08:41 Hyposegmented Neuts Not Reportable 08/13/20 08:41 Hypogranular Neuts Not Reportable 08/13/20 08:41 Smudge Cells Not Reportable 08/13/20 08:41 Toxic Granulation Not Reportable 08/13/20 08:41 Toxic Vacuolation Not Reportable 08/13/20 08:41 Dohle Bodies Not Reportable 08/13/20 08:41 Pelger-Huet Anomaly Not Reportable 08/13/20 08:41 Elian Rods Not Reportable 08/13/20 08:41 Platelet Estimate Consistent w auto 08/13/20 08:41 Clumped Platelets Not Reportable 08/13/20 08:41 Plt Clumps, EDTA Not Reportable 08/13/20 08:41 Large Platelets Not Reportable 08/13/20 08:41 Giant Platelets Not Reportable 08/13/20 08:41 Platelet Satelliting Not Reportable 08/13/20 08:41 Plt Morphology Comment Not Reportable 08/13/20 08:41 RBC Morphology Not Reportable 08/13/20 08:41 Dimorphic RBCs Not Reportable 08/13/20 08:41 Polychromasia Not Reportable 08/13/20 08:41 Hypochromasia Not Reportable 08/13/20 08:41 Poikilocytosis Not Reportable 08/13/20 08:41 Anisocytosis Not Reportable 08/13/20 08:41 Microcytosis Not Reportable 08/13/20 08:41 Macrocytosis Not Reportable 08/13/20 08:41 Spherocytes Not Reportable 08/13/20 08:41 Pappenheimer Bodies Not Reportable 08/13/20 08:41 Sickle Cells Not Reportable 08/13/20 08:41 Target Cells Not Reportable 08/13/20 08:41 Tear Drop Cells Few 08/13/20 08:41 Ovalocytes Not Reportable 08/13/20 08:41 Helmet Cells Not Reportable 08/13/20 08:41 [place] Bodies Not Reportable 08/13/20 08:41 [place] Rings Not Reportable 08/13/20 08:41 Kwame Cells 1+ 08/13/20 08:41 Bite Cells Not Reportable 08/13/20 08:41 Crenated Cell Not Reportable 08/13/20 08:41 Elliptocytes Few 08/13/20 08:41 Acanthocytes (Spur) Not Reportable 08/13/20 08:41 Rouleaux Not Reportable 08/13/20 08:41 Hemoglobin C Crystals Not Reportable 08/13/20 08:41 Schistocytes Not Reportable 08/13/20 08:41 Malaria parasites Not Reportable 08/13/20 08:41 Raza Bodies Not Reportable 08/13/20 08:41 Hem Pathologist Commnt No 08/13/20 08:41 PT 15.8 Sec. (12.2-14.9) H 08/14/20 04:13 INR 1.23 (0.87-1.13) H 08/14/20 04:13 APTT 41.7 Sec. (24.2-36.6) H 08/13/20 Unknown D-Dimer 1557.08 ng/mlDDU (0-234) H 08/13/20 08:41 Sodium 140 mmol/L (137-145) 08/15/20 05:43 Potassium 3.5 mmol/L (3.6-5.0) L 08/15/20 05:43 Chloride 98.2 mmol/L (98-107) 08/15/20 05:43 Carbon Dioxide 26 mmol/L (22-30) 08/15/20 05:43 Anion Gap 19 mmol/L 08/15/20 05:43 BUN 30 mg/dL (9-20) H 08/15/20 05:43 Creatinine 4.2 mg/dL (0.8-1.3) H 08/15/20 05:43 Estimated GFR 17 ml/min 08/15/20 05:43 BUN/Creatinine Ratio 7 % 08/15/20 05:43 Glucose 92 mg/dL (75-100) 08/15/20 05:43 POC Glucose 120 mg/dL (70-105) H 08/16/20 13:44 Lactic Acid 1.60 mmol/L (0.7-2.0) 08/15/20 05:43 Calcium 9.7 mg/dL (8.4-10.2) 08/15/20 05:43 Ferritin 773.6 ng/mL (30.0-300.0) H 08/13/20 08:41 Total Bilirubin 0.80 mg/dL (0.1-1.2) 08/13/20 00:04 AST 24 units/L (5-40) 08/13/20 00:04 ALT 11 units/L (7-56) 08/13/20 00:04 Alkaline Phosphatase 34 units/L (35-129) L 08/13/20 00:04 Lactate Dehydrogenase 154 units/L (91-180) 08/13/20 08:41 Troponin T 0.104 ng/mL (0.00-0.029) H* D 08/13/20 12:29 C-Reactive Protein 28.70 mg/dL (0.00-1.30) H 08/13/20 08:41 NT-Pro-B Natriuret Pep 43535 pg/mL (0-900) H 08/13/20 00:04 Total Protein 7.6 g/dL (6.3-8.2) 08/13/20 00:04 Albumin 3.3 g/dL (3.9-5) L 08/13/20 00:04 Albumin/Globulin Ratio 0.8 % 08/13/20 00:04 Triglycerides 99 mg/dL (2-149) 08/13/20 00:04 Cholesterol 83 mg/dL (50-199) 08/13/20 00:04 LDL Cholesterol Direct 15 mg/dL (50-130) L 08/13/20 00:04 HDL Cholesterol 51 mg/dL (40-59) 08/13/20 00:04 Cholesterol/HDL Ratio 1.62 % 08/13/20 00:04 Procalcitonin 76.72 ng/mL (<0.15) 08/13/20 08:41 Urine Color Yellow (Yellow) 08/13/20 18:30 Urine Turbidity Clear (Clear) 08/13/20 18:30 Urine pH 5.0 (5.0-7.0) 08/13/20 18:30 Ur Specific [place] 1.016 (1.003-1.030) 08/13/20 18:30 Urine Protein 30 mg/dl mg/dL (Negative) 08/13/20 18:30 Urine Glucose (UA) Neg mg/dL (Negative) 08/13/20 18:30 Urine Ketones Neg mg/dL (Negative) 08/13/20 18:30 Urine Blood Mod (Negative) 08/13/20 18:30 Urine Nitrite Neg (Negative) 08/13/20 18:30 Urine Bilirubin Neg (Negative) 08/13/20 18:30 Urine Urobilinogen < 2.0 mg/dL (<2.0) 08/13/20 18:30 Ur Leukocyte Esterase Neg (Negative) 08/13/20 18:30 Urine WBC (Auto) 1.0 /HPF (0.0-6.0) 08/13/20 18:30 Urine RBC (Auto) < 1.0 /HPF (0.0-6.0) 08/13/20 18:30 U Epithel Cells (Auto) < 1.0 /HPF (0-13.0) 08/13/20 18:30 Urine Mucus Few /HPF 08/13/20 18:30 Nasal Screen MRSA (PCR) Negative (Negative) 08/13/20 13:05 Urine Opiates Screen Presumptive negative 08/13/20 18:30 Urine Methadone Screen Presumptive negative 08/13/20 18:30 Ur Barbiturates Screen Presumptive negative 08/13/20 18:30 Ur Phencyclidine Scrn Presumptive negative 08/13/20 18:30 Ur Amphetamines Screen Presumptive negative 08/13/20 18:30 U Benzodiazepines Scrn Presumptive negative 08/13/20 18:30 Urine Cocaine Screen Presumptive positive 08/13/20 18:30 U Marijuana (THC) Screen Presumptive negative 08/13/20 18:30 Drugs of Abuse Note Disclamer 08/13/20 18:30 Coronavirus (PCR) Negative (Negative) 08/14/20 07:28 Hepatitis A IgM Ab Non-reactive (NonReactive) 08/13/20 12:29 Hep Bs Antigen Non-reactive (Negative) 08/13/20 12:29 Hep B Core IgM Ab Non-reactive (NonReactive) 08/13/20 12:29 Hepatitis C Antibody Reactive (NonReactive) A 08/13/20 12:29 Microbiology: Microbiology 08/12/20 23:52 Peripheral/Venous Blood Culture - Preliminary NO GROWTH AFTER 4 DAYS 08/13/20 00:04 Peripheral/Venous Blood Culture - Preliminary NO GROWTH AFTER 4 DAYS - Diagnostic Impressions Diagnostic Impressions: Echocardiogram 08/13/20 06:47 Transthoracic Echocardiogram Indication: Chest pain BP: 115/70 HR: 88 Conclusions *4-chamber dilated cardiomyopathy. *Global left ventricular systolic function is severely decreased. *The estimated ejection fraction is 25-30%. *Moderate to severe concentric left ventricular hypertrophy is observed. *There is mild to moderate aortic regurgitation. *There is moderate mitral regurgitation. *There is at least moderately-severe tricuspid regurgitation. *There is moderate to severe pulmonary hypertension. *The right ventricular systolic pressure is calculated at 53 mmHg. Findings Left Ventricle: The left ventricular chamber size is moderately dilated. Moderate to severe concentric left ventricular hypertrophy is observed. Global left ventricular systolic function is severely decreased. The estimated ejection fraction is 25-30%. Left Atrium: The left atrium is moderate to severely dilated. Right Ventricle: The right ventricle is mild to moderately dilated. The right ventricular global systolic function is moderately reduced. Right Atrium: The right atrial cavity size is severely dilated. Aortic Valve: The aortic valve is trileaflet. The aortic valve leaflets are mildly thickened. There is mild to moderate aortic regurgitation. There is no evidence of aortic stenosis. Mitral Valve: The mitral valve leaflets are mildly thickened. There is moderate mitral regurgitation. There is no evidence of mitral stenosis. Tricuspid Valve: There is moderate to severe tricuspid regurgitation. The right ventricular systolic pressure is calculated at 53 mmHg. There is evidence of moderate pulmonary hypertension. Pulmonic Valve: There is mild pulmonic regurgitation. Pericardium: There is no pericardial effusion. Aorta: There is no dilatation of the ascending aorta. There is no dilatation of the aortic root. Venous: The inferior vena cava is dilated. Measurements Chambers 2D Name Value Normal Range IVSd (2D) 1.41 cm (0.6 - 1.1) LVPWd (2D) 1.44 cm (0.6 - 1.1) LVIDd (2D) 5.94 cm (3.7 - 5.6) LVIDs (2D) 4.85 cm (2 - 3.8) LV FS (2D) 18.22 % - EF Teichholz (2D) 37.16 % - Ao root diameter (2D) 3.62 cm (2 - 3.7) Volumes/Mass Name Value Normal Range LA ESV SP 4CH (A/L) 90.8 ml - LA ESV SP 2CH (A/L) 212.2 ml - LA ESV BP (A/L) 145.73 ml - LA ESV BP (A/L) index 78.35 ml/m2 - LA ESV SP 4CH (MOD) 87.11 ml - LA ESV SP 2CH (MOD) 210.5 ml - LA ESV BP (MOD) 141.48 ml - LA ESV BP (MOD) index 76.07 ml/m2 - Diastolic/Systolic Function Name Value Normal Range MV E-wave Vmax 1.19 m/sec - MV deceleration time 198.97 msec - Aortic Valve Name Value Normal Range AV Vmax 1.71 m/sec - AV VTI 24.3 cm - AV peak gradient 11.68 mmHg - AV mean gradient 6.21 mmHg - LVOT diameter 2.2 cm - LVOT Vmax 1.06 m/sec - LVOT VTI 14.99 cm - LVOT peak gradient 4.5 mmHg - LVOT mean gradient 2.26 mmHg - SV LVOT 57.18 ml - JATIN (continuity Vmax) 2.36 cm2 - JATIN (continuity VTI) 2.35 cm2 - AR PHT 655.58 msec - AR peak gradient 76.5 mmHg - Mitral Valve Name Value Normal Range MR Vmax 4.72 m/sec - Tricuspid Valve Name Value Normal Range TR Vmax 3.11 m/sec - TR peak gradient 38 mmHg - RAP 15 mmHg - RVSP 53 mmHg - IVC diameter 3.07 cm (1.2 - 2.3) Pulmonic Valve/Qp:Qs Name Value Normal Range PV Vmax 0.66 m/sec - PV peak gradient 1.76 mmHg - UT end-diastolic Vmax 1.87 m/sec - PV acceleration time 110.37 msec - Puente/IV: Voiding Method Urinal IV Catheter Type [Right Hand] INT / Saline Lock IV Catheter Type [Right Wrist] INT / Saline Lock Active Medications - Current Medications Current Medications: Generic Name Dose Route Start Last Admin Trade Name Freq PRN Reason Stop Dose Admin Acetaminophen 650 mg 08/13/20 06:46 08/16/20 08:25 Tylenol PO 650 mg Q6H PRN Administration Pain, Mild (1-3) Albumin Human 25 gm 08/15/20 01:20 08/15/20 01:39 Alburx 25% (Albumin) IV 25 gm KYLE PRN Administration Hypotension Aspirin 325 mg 08/14/20 10:00 08/16/20 09:00 Ecotrin PO 325 mg QDAY AMALIA Administration Carvedilol 3.125 mg 08/16/20 14:00 08/16/20 21:48 Coreg PO 3.125 mg BID AMALIA Administration Famotidine 10 mg 08/13/20 16:00 08/16/20 09:00 Pepcid PO 10 mg DAILY AMALIA Administration Heparin Sodium (Porcine) 5,000 unit 08/13/20 22:00 08/16/20 21:48 Heparin SUB-Q 5,000 unit Q12HR AMALIA Administration Cefepime HCl 1 gm in 100 mls @ 200 mls/hr 08/13/20:00 08/16/20 11:42 Cefepime/Ns 1 Gm/100 Ml IV 08/17/20 10:29 200 mls/hr Q24HR AMALIA Administration Sodium Chloride 100 mls @ 999 mls/hr 08/13/20 10:48 Nacl 0.9% IV KYLE PRN Hypotension Magnesium Hydroxide 30 ml 08/13/20 02:14 Milk Of Magnesia PO Q4H PRN Constipation Midodrine 5 mg 08/14/20 12:00 08/17/20 08:22 Proamatine PO Not Given TID@0800,1200,1600 AMALIA Morphine Sulfate 2 mg 08/13/20 02:14 Morphine IV Q4H PRN Pain, Moderate (4-6) Nitroglycerin 0.4 mg 08/13/20 06:46 Nitrostat SL Q5M PRN Chest Pain Ondansetron HCl 4 mg 08/13/20 02:14 Zofran IV Q8H PRN Nausea And Vomiting Sodium Chloride 10 ml 08/13/20 10:00 08/16/20 21:48 Sodium Chloride Flush Syringe 10 Ml IV 10 ml BID AMALIA Administration Sodium Chloride 10 ml 08/13/20 02:14 Sodium Chloride Flush Syringe 10 Ml IV PRN PRN LINE FLUSH Nutrition/Malnutrition Assess - Dietary Evaluation Nutrition/Malnutrition Findings: Nutrition Notes Start: 08/13/20 10:03 Freq: Status: Active Protocol: Document 08/16/20 11:22 FANI (Rec: 08/16/20 11:53 FANI [id number]) Co-Sign 08/16/20 11:22 LM Nutrition Notes Initial or Follow up Assessment Current Diagnosis CKD (stage V CKD),Coronary Artery Disease,Sepsis, Hypertension,Heart Failure, Respiratory Failure Other Pertinent Diagnosis Pneu, r/o COVID-19, afib with RVR, Hypotension Current Diet Cardiac Renal Labs/Tests 08/15 K 3.5 BUN 30 Cr 4.2 Pertinent Medications Heparin Height 5 ft 9 in Weight 70.9 kg [place] Body Weight (kg) 72.72 BMI 23.1 Weight Status Appropriate Subjective/Other Information F/U for intakes and diet education needs. Pt reports consuming 50% meals and N/V. Pt given diet education for HTN. Burn Absent Trauma Absent GI Symptoms Nausea,Vomiting Current % PO Fair (50-74%) Minimum of two criteria No physical signs of malnutrition #2 Nutrition Diagnosis Food and nutrition-related knowledge deficit Etiology No prior diet education As Evidenced by Signs and Symptoms Pt had questions #1 Nutrition Diagnosis Inadequate oral intake Etiology N/V As Evidenced by Signs and Symptoms Pt consuming 50% meals Is patient on ventilator? No Is Patient Ambulatory and/or Out of Bed No REE-([facility]-confined to bed) [phone] Calculation Used for Recommendations [facility] Additional Notes Pro needs >1.2g/kg: >85g/day Fluid needs 1-1.5L/day Nutrition Intervention Change Diet Order: Continue Cardiac Renal Teaching Recipient Patient Learning Readiness Good Teaching Methods Discussion,Handout Response to Teaching Verbalize understanding Education Handouts Provided Hypertension Nutrition Therapy Barriers to Learning No Barriers RD phone number provided Yes Patient aware of follow up options Yes Goal #1 Meet at least 80% energy and protein needs Anticipated Discharge Needs: Cardiac Renal diet Follow-Up By: 08/18/20 Additional Comments F/U for intakes
--- NOTE | 2020-08-17 09:42 | Progress Note ---
Assessment and Plan Persistent atrial fibrillation, rate control on carvedilol No anticoagulation due to thrombocytopenia Echocardiogram shows a 4 chamber dilated cardiomyopathy, EF 20-25%. There is moderate MR, moderate to severe TR and moderate pulmonary HTN, RVSP 53 mm HG. The chronicity is likely chronic. Dilated cardiomyopathy Sepsis Lactic acidosis Pneumonia Covid 19 negative ESRD on HD Non-specific troponin No ischemic ECG changes Hypertension Thrombocytopenia Recommendations: Continue rate control of chronic atrial fibrillation. Patient determined a poor risk for term oral anticoagulation due to thrombocytopenia. Due to chronically low blood pressure, he is unable to tolerate afterload therapy for for his left ventricular systolic failure. Stable cardiac daily. Once discharged, patient advised to follow up with [facility]elito in 3-5 days. Subjective Date of service: 08/17/20 Principal diagnosis: Atrial fibrillation Interval history: Seen in dialysis. Patient is resting in bed and has no cardiac complaints. Atrial fibrillation with a well controlled ventricular rate on telemetry. Objective Vital Signs Temp Pulse Pulse Pulse Resp BP Pulse Ox 08/17/20 07:41 98.2 F 97 H 18 115/73 96 08/17/20 04:51 97.6 F 95 H 20 132/84 99 08/17/20 03:04 90 08/17/20 00:00 96 H 08/16/20 23:50 98.6 F 96 H 20 113/72 96 08/16/20 23:16 72 72 20 100 08/16/20 21:48 72 108/67 08/16/20 20:00 71 08/16/20 19:47 97.6 F 72 20 108/67 100 08/16/20 16:36 120/70 08/16/20 16:00 68 08/16/20 15:23 98.0 F 69 20 117/70 100 08/16/20 13:01 69 114/70 08/16/20 12:52 69 114/70 99 08/16/20 12:22 76 76 20 97 08/16/20 12:00 78 08/16/20 10:00 98 - Physical Examination General: No Apparent Distress, Cachectic HEENT: Positive: PERRL Neck: Positive: trachea midline Cardiac: Positive: irregularly irregular - Allied health notes Allied health notes reviewed: RT
[2020-08-17] MEDS: CEFEPIME/NS 1 GM/100 ML 1 GM/100 ML BAG IV SCH (10:06)
[2020-08-17] MEDS: HEPARIN 5,000 UNIT/1 ML VIAL SUB-Q SCH (10:07)
[2020-08-17] MEDS: ASPIRIN EC 325 MG TAB PO SCH ×2 (10:08→15:24)
[2020-08-17] MEDS: carvediloL 3.125 MG TAB PO SCH (10:08)
[2020-08-17] MEDS: FAMOTIDINE 10 MG TAB PO SCH ×2 (10:09→15:24)
--- NOTE | 2020-08-17 12:56 | Progress Note ---
Assessment and Plan Assessment: ESRD on Hemodialysis: Sepsis due to Pneumonia: Pneumonia due to infectious agent: Afib with RVR: HTN: CHF: Plan: -Undwerwent hemodialysis today for UF and clearance -On ,,S schedule -Fluid restriction of 1 liter per day -Renally dose all medications -Strict I/O's monitoring -Obtain daily weights -Assess dialysis needs daily Subjective Date of service: 08/17/20 Principal diagnosis: Atrial fibrillation Interval history: Patient seen lying in bed, just returning to floor from hemodialysis with transporter in room. Patient is agitated and upset with cursing stating he better get out of here today or he will sign himself out Objective - Vital Signs Vital signs: Vital Signs - 12hr 08/17/20 08/17/20 08/17/20 03:04 04:51 07:41 Temperature 97.6 F 98.2 F Pulse Rate 90 95 H 97 H Respiratory 20 18 Rate Blood Pressure 132/84 115/73 O2 Sat by Pulse 99 96 Oximetry O2 Sat by Pulse Oximetry [ Anterior Bilateral Throughout] 08/17/20 08/17/20 08/17/20 08:40 08:45 09:00 Temperature 98.2 F Pulse Rate 87 96 H 87 Respiratory 18 Rate Blood Pressure 108/74 103/73 104/74 O2 Sat by Pulse Oximetry O2 Sat by Pulse 99 Oximetry [ Anterior Bilateral Throughout] 08/17/20 08/17/20 08/17/20 09:15 09:30 09:45 Temperature Pulse Rate 89 75 80 Respiratory Rate Blood Pressure 93/67 98/57 97/65 O2 Sat by Pulse Oximetry O2 Sat by Pulse Oximetry [ Anterior Bilateral Throughout] 08/17/20 08/17/20 08/17/20 10:00 10:15 10:30 Temperature Pulse Rate 81 52 L 87 Respiratory Rate Blood Pressure 100/64 109/57 122/73 O2 Sat by Pulse Oximetry O2 Sat by Pulse Oximetry [ Anterior Bilateral Throughout] 08/17/20 08/17/20 08/17/20 10:45 11:00 11:15 Temperature Pulse Rate 78 76 75 Respiratory Rate Blood Pressure 98/46 106/49 103/55 O2 Sat by Pulse Oximetry O2 Sat by Pulse Oximetry [ Anterior Bilateral Throughout] - General Appearance General appearance: well-developed, appears stated age, fatigue EENT: ATNC, PERRL, hearing intact, vision intact Neck: no JVD, supple Respiratory: Present: Decreased Breath Sounds Cardiology: S1S2 Gastrointestinal: normoactive bowel sounds Integumentary: warm and dry Neurologic: alert and oriented x3 Musculoskeletal: other (No edema) - Lab 08/15/20 05:43 08/15/20 05:43 Most recent lab results Calcium 9.7 mg/dL (8.4-10.2) 08/15/20 05:43 Medications & Allergies - Medications Allergies/Adverse Reactions: Allergies No Known Allergies Allergy (Unverified 08/12/20 23:21) Home Medications: Home Medications Medication Instructions Recorded Confirmed Last Taken Type No Known Home Medications [No 08/14/20 08/14/20 Unknown History Reported Home Medications] Active Medications: Generic Name Dose Route Start Last Admin Trade Name Freq PRN Reason Stop Dose Admin Acetaminophen 650 mg 08/13/20 06:46 08/16/20 08:25 Tylenol PO 650 mg Q6H PRN Administration Pain, Mild (1-3) Albumin Human 25 gm 08/15/20 01:20 08/15/20 01:39 Alburx 25% (Albumin) IV 25 gm KYLE PRN Administration Hypotension Aspirin 325 mg 08/14/20 10:00 08/16/20 09:00 Ecotrin PO 325 mg QDAY AMALIA Administration Carvedilol 3.125 mg 08/16/20 14:00 08/16/20 21:48 Coreg PO 3.125 mg BID AMALIA Administration Famotidine 10 mg 08/13/20 16:00 08/16/20 09:00 Pepcid PO 10 mg DAILY AMALIA Administration Heparin Sodium (Porcine) 5,000 unit 08/13/20 22:00 08/16/20 21:48 Heparin SUB-Q 5,000 unit Q12HR AMALIA Administration Sodium Chloride 100 mls @ 999 mls/hr 08/13/20 10:48 Nacl 0.9% IV KYLE PRN Hypotension Magnesium Hydroxide 30 ml 08/13/20 02:14 Milk Of Magnesia PO Q4H PRN Constipation Midodrine 5 mg 08/14/20 12:00 08/17/20 08:22 Proamatine PO Not Given TID@0800,1200,1600 AMALIA Morphine Sulfate 2 mg 08/13/20 02:14 Morphine IV Q4H PRN Pain, Moderate (4-6) Nitroglycerin 0.4 mg 08/13/20 06:46 Nitrostat SL Q5M PRN Chest Pain Ondansetron HCl 4 mg 08/13/20 02:14 Zofran IV Q8H PRN Nausea And Vomiting Sodium Chloride 10 ml 08/13/20 10:00 08/16/20 21:48 Sodium Chloride Flush Syringe 10 Ml IV 10 ml BID AMALIA Administration Sodium Chloride 10 ml 08/13/20 02:14 Sodium Chloride Flush Syringe 10 Ml IV PRN PRN LINE FLUSH
--- NOTE | 2020-08-17 13:58 | Discharge Summary ---
Providers - Providers Date of Admission: 08/13/20 01:43 Date of discharge: 08/17/20 Attending physician: ABIGAIL MATHIS 08/13/20 Consult to Cardiac Rehabilitation [CONS] Routine Reason For Exam: Phase I 08/13/20 02:14 Consult to Dietitian/Nutrition [CONS] Routine Physician Instructions: Reason For Exam: Reason for Consult: Diet education Consult to Physician [CONS] Routine Comment: Consulting Provider: CLEM BLACK Physician Instructions: Reason For Exam: Respiratory failure, Pneumonia,Afib with RVR 08/13/20 06:44 Consult to Physician [CONS] Routine Comment: Consulting Provider: JASS BOLAND Physician Instructions: Reason For Exam: End-stage renal disease on dialysis 08/13/20 06:46 Consult to Cardiology [CONS] Routine Consulting Provider: LEIGH SUÁREZ Reason For Exam: chest pain, afib with rvr Primary care physician: GLASS CUTTER HAND Hospitalization Reason for admission: Chest pain/worsening shortness of breath/left pleural effusion Condition: Serious Pertinent studies: chest x-ray Echo Repeat chest x-ray Hospital course: 65-year-old male patient with known history of CHF, end-stage renal disease on dialysis, coronary artery disease and hypertension was admitted through the emergency room with worsening chest pain chest pain and shortness of breath of 1 day duration Patient was admitted to the hospital symptomatically managed evaluated by cardiology medications optimized Patient was also seen by pulmonary appropriately managed, had large left pleural effusion which needed thoracentesis Patient has end-stage renal disease on hemodialysis, A. fib with rapid ventricular rate resolved with medications, patient is not on chronic anticoagulation, In view of severe thrombocytopenia, patient is on aspirin. Patient has a large left pleural effusion, pulmonary recommended thoracentesis, however patient did not want the procedure refused and left AMA Patient is strongly advised to seek medical attention should he have worsening symptoms, or go to emergency room as needed Patient verbalized understanding, left AMA Discharge diagnosis; --Acute hypoxic respiratory failure; requiring BiPAP Oxygen ,titrate O2 sats to more than 90% Patient did not require BiPAP last 2 days On 2 L nasal cannula oxygen Evaluate for home O2, set up 2 L of nasal cannula oxygen at discharge --Possible pneumonia; continue cefepime for total 5 days Day 4 of 5, last dose today, symptoms improved Pulmonary following --Left pleural effusion; Continue current management Thoracentesis recommended by pulmonary Patient refused and left AMA --Septic shock: Off Levophed On IV antibiotics and follow-up cultures. Patient is also on midodrine --ESRD: On HD Hemodialysis per schedule, nephrology following. --NSTEMI type 2: In the setting of ESRD. Cardiology following --Atrial fibrillation with RVR: Rate controlled Cardiology changed Cardizem to Coreg Patient currently not on anticoagulation due to Thrombocytopenia and hemoptysis Continue aspirin 325 mg daily --Hypertension: Patient actually hypotensive from sepsis. Closely monitor blood pressures --DVT prophylaxis; Heparin renal dose We will closely monitor the patient and adjust management as needed Possible discharge home tomorrow if stable Ventilating Equipment Installer Dr. Copeland recommended thoracentesis for his pleural effusion. However patient did not want to stay for thoracentesis, and left AGAINST MEDICAL ADVICE Disposition: DC-07 LEFT AGAINST MED ADVICE Time spent for discharge: 32 min Core Measure Documentation - Palliative Care Palliative Care/ Comfort Measures: Not Applicable - Core Measures Any of the following diagnoses?: none Exam - Constitutional Vitals: Temp Pulse Resp BP Pulse Ox 98.2 F 75 18 103/55 99 08/17/20 08:40 08/17/20 11:15 08/17/20 08:40 08/17/20 11:15 08/17/20 08:40 General appearance: Present: no acute distress, well-nourished - EENT Eyes: Present: PERRL, EOM intact - Neck Neck: Present: supple, normal ROM - Respiratory Respiratory effort: normal Respiratory: left: diminished (Lt >Rt), negative: rales, rhonchi, wheezing - Cardiovascular Rhythm: regular Heart Sounds: Present: S1 & S2 - Extremities Extremities: no ischemia, No edema - Abdominal General gastrointestinal: Present: soft, non-tender, non-distended, normal bowel sounds - Integumentary Integumentary: Present: clear, warm - Musculoskeletal Musculoskeletal: strength equal bilaterally - Psychiatric Psychiatric: appropriate mood/affect, cooperative - Neurologic Neurologic: CNII-XII intact, moves all extremities Plan Activity: advance as tolerated Diet: renal Additional Instructions: Follow [facility] in 3 to 5 days. Follow renal/hemodialysis per schedule TTS. If you have worsening symptoms contact MD or go to emergency room as needed. Pulmonary recommended left thoracentesis for pleural effusion, however patient did not want to stay and signed AMA Care Plan Goals: Patient to resume service at [facility] for dialysis TTS. Follow up with: PINEDA QUIÑONEZ MD [Staff Physician] - 7 Days PRIMARY CARE, [Primary Care Provider] - 3-5 Days DAIANA COPELAND MD [Staff Physician] - 7 Days Prescriptions: carvediloL [Coreg] 3.125 mg PO BID #60 tablet Aspirin EC [Ecotrin] 325 mg PO QDAY #30 tablet Famotidine [Pepcid] 10 mg PO DAILY #30 tablet Midodrine [Proamatine] 5 mg PO TID #90 tablet
--- NOTE | 2020-08-17 14:02 | Progress Note ---
Assessment and Plan Patient awake and resting on 2 litres O2. O2 saturation 93%. Still complaining chest pain, shortness of breath and cough. Patient afebrile. No leukocytosis. Chest xray done 08/14/20 reported There is increased pleural and parenchymal disease on the left. Patient is on cefepime. Recommend diagnostic left thoracentesis by interventional radiology. Patients PO2 52 on room air. Patient is candidate for home O2. Recommend home O2 2 litres via nasal canula. - Patient Problems (1) Pneumonia Current Visit: Yes Status: Acute Qualifiers: Pneumonia type: due to unspecified organism Laterality: unspecified laterality Lung location: unspecified part of lung Qualified Code(s): J18.9 - Pneumonia, unspecified organism Plan to address problem: Patient is on cefepime. (2) Pleural effusion, left Current Visit: Yes Status: Acute Plan to address problem: Recommend left thoracentesis by interventional radiology. (3) Respiratory failure Current Visit: Yes Status: Acute Qualifiers: Chronicity: acute Respiratory failure complication: hypoxia Qualified Code(s): J96.01 - Acute respiratory failure with hypoxia Plan to address problem: Patients PO2 50 0n room air. Recommend Home O2, 2 litres via nasal canula. Albuterol/atrovent aerosol treatments q 6 hours. (4) Atrial fibrillation with RVR Current Visit: Yes Status: Acute Plan to address problem: Patient is on Diltiazem. Management as per cardiology. (5) Chest pain Current Visit: Yes Status: Acute Qualifiers: Chest pain type: unspecified Qualified Code(s): R07.9 - Chest pain, unspecified Plan to address problem: Management as per cardiology. (6) ESRD (end stage renal disease) on dialysis Current Visit: Yes Status: Acute Plan to address problem: Management as per nephrology. (7) Hypotension Current Visit: Yes Status: Acute Qualifiers: Hypotension type: unspecified hypotension type Qualified Code(s): I95.9 - Hypotension, unspecified Plan to address problem: Blood pressure improved. Recent blood pressure 116/73 (8) Sepsis Current Visit: Yes Status: Acute Qualifiers: Sepsis type: sepsis due to unspecified organism Sepsis acute organ dysfunction status: with acute organ dysfunction Severe sepsis acute organ dysfunction type: acute respiratory failure Acute respiratory failure type: with hypoxia Severe sepsis shock status: without septic shock Qualified Code (s): A41.9 - Sepsis, unspecified organism; R65.20 - Severe sepsis without septic shock; J96.01 - Acute respiratory failure with hypoxia Plan to address problem: Patient is on cefepime. Subjective Date of service: 08/17/20 Principal diagnosis: Atrial fibrillation Interval history: Patient awake and resting on 2 litres O2. O2 saturation 93%. Still complaining chest pain, shortness of breath and cough. Patient afebrile. No leukocytosis. Chest xray done 08/14/20 reported There is increased pleural and parenchymal disease on the left. Patient is on cefepime. Recommend diagnostic left thoracentesis by interventional radiology. Patients PO2 52 on room air. Patient is candidate for home O2. Recommend home O2 2 litres via nasal canula. Objective Vital Signs - 12hr 08/17/20 08/17/20 08/17/20 03:04 04:51 07:41 Temperature 97.6 F 98.2 F Pulse Rate 90 95 H 97 H Respiratory 20 18 Rate Blood Pressure 132/84 115/73 O2 Sat by Pulse 99 96 Oximetry O2 Sat by Pulse Oximetry [ Anterior Bilateral Throughout] 08/17/20 08/17/20 08/17/20 08:40 08:45 09:00 Temperature 98.2 F Pulse Rate 87 96 H 87 Respiratory 18 Rate Blood Pressure 108/74 103/73 104/74 O2 Sat by Pulse Oximetry O2 Sat by Pulse 99 Oximetry [ Anterior Bilateral Throughout] 08/17/20 08/17/20 08/17/20 09:15 09:30 09:45 Temperature Pulse Rate 89 75 80 Respiratory Rate Blood Pressure 93/67 98/57 97/65 O2 Sat by Pulse Oximetry O2 Sat by Pulse Oximetry [ Anterior Bilateral Throughout] 08/17/20 08/17/20 08/17/20 10:00 10:15 10:30 Temperature Pulse Rate 81 52 L 87 Respiratory Rate Blood Pressure 100/64 109/57 122/73 O2 Sat by Pulse Oximetry O2 Sat by Pulse Oximetry [ Anterior Bilateral Throughout] 08/17/20 08/17/20 08/17/20 10:45 11:00 11:15 Temperature Pulse Rate 78 76 75 Respiratory Rate Blood Pressure 98/46 106/49 103/55 O2 Sat by Pulse Oximetry O2 Sat by Pulse Oximetry [ Anterior Bilateral Throughout] Constitutional: no acute distress, alert, other (Weak.) Eyes: non-icteric ENT: oropharynx moist Neck: supple, no lymphadenopathy Ascultation: Left: diminished breath sounds (left base.) Cardiovascular: irregular rhythm Gastrointestinal: normoactive bowel sounds, soft, non-tender Integumentary: normal Extremities: no cyanosis, no edema Neurologic: non-focal exam, pupils equal and round Psychiatric: depressed CBC and BMP: 08/15/20 05:43 08/15/20 05:43 ABG, PT/INR, D-dimer: PT/INR, D-dimer PT 15.8 Sec. (12.2-14.9) H 08/14/20 04:13 INR 1.23 (0.87-1.13) H 08/14/20 04:13 D-Dimer 1557.08 ng/mlDDU (0-234) H 08/13/20 08:41 Abnormal lab findings: Abnormal Labs 08/13/20 08/13/20 08/13/20 00:04 00:04 00:04 WBC RBC 3.59 L Hgb Hct MCV 99 H MCH 33 H MCHC RDW 16.8 H Plt Count 84 L Lymph % (Auto) Anderson % (Auto) Lymph # (Auto) Seg Neutrophils % Seg Neuts % (Manual) 84.0 H Lymphocytes % (Manual) 2.0 L Lymphocytes # (Manual) 0.1 L PT INR APTT D-Dimer Potassium Chloride 95.1 L Carbon Dioxide 18 L BUN 44 H Creatinine 7.0 H Glucose 66 L POC Glucose Lactic Acid Calcium Ferritin Alkaline Phosphatase 34 L Troponin T 0.049 H C-Reactive Protein NT-Pro-B Natriuret Pep 65302 H Albumin 3.3 L LDL Cholesterol Direct 15 L Hepatitis C Antibody 08/13/20 08/13/20 08/13/20 00:04 02:20 02:20 WBC RBC Hgb Hct MCV MCH MCHC RDW Plt Count Lymph % (Auto) Anderson % (Auto) Lymph # (Auto) Seg Neutrophils % Seg Neuts % (Manual) Lymphocytes % (Manual) Lymphocytes # (Manual) PT INR APTT D-Dimer Potassium Chloride Carbon Dioxide BUN Creatinine Glucose POC Glucose Lactic Acid 6.10 H* 6.80 H* Calcium Ferritin Alkaline Phosphatase Troponin T 0.045 H C-Reactive Protein NT-Pro-B Natriuret Pep Albumin LDL Cholesterol Direct Hepatitis C Antibody 08/13/20 08/13/2008/13/20 02:32 03:51 06:14 WBC RBC Hgb Hct MCV MCH MCHC RDW Plt Count Lymph % (Auto) Anderson % (Auto) Lymph # (Auto) Seg Neutrophils % Seg Neuts % (Manual) Lymphocytes % (Manual) Lymphocytes # (Manual) PT INR APTT D-Dimer Potassium Chloride Carbon Dioxide BUN Creatinine Glucose POC Glucose 65 L 116 H Lactic Acid Calcium Ferritin Alkaline Phosphatase Troponin T 0.057 H D C-Reactive Protein NT-Pro-B Natriuret Pep Albumin LDL Cholesterol Direct Hepatitis C Antibody 08/13/20 08/13/20 08/13/20 06:14 08:41 08:41 WBC RBC 3.47 L Hgb Hct MCV 105 H MCH 34 H MCHC RDW 17.8 H Plt Count 72 L Lymph % (Auto) Anderson % (Auto) Lymph # (Auto) Seg Neutrophils % Seg Neuts % (Manual) 89.0 H Lymphocytes % (Manual) 9.0 L Lymphocytes # (Manual) 0.5 L PT INR APTT D-Dimer Potassium Chloride Carbon Dioxide 19 L BUN 49 H Creatinine 6.9 H Glucose 65 L POC Glucose Lactic Acid 6.40 H* Calcium 8.0 L Ferritin Alkaline Phosphatase Troponin T C-Reactive Protein NT-Pro-B Natriuret Pep Albumin LDL Cholesterol Direct Hepatitis C Antibody 08/13/20 08/13/20 08/13/20 08:41 08:41 08:41 WBC RBC Hgb Hct MCV MCH MCHC RDW Plt Count Lymph % (Auto) Anderson % (Auto) Lymph # (Auto) Seg Neutrophils % Seg Neuts % (Manual) Lymphocytes % (Manual) Lymphocytes # (Manual) PT INR APTT D-Dimer 1557.08 H Potassium Chloride Carbon Dioxide BUN Creatinine Glucose POC Glucose Lactic Acid Calcium Ferritin 773.6 H Alkaline Phosphatase Troponin T C-Reactive Protein 28.70 H NT-Pro-B Natriuret Pep Albumin LDL Cholesterol Direct Hepatitis C Antibody 08/13/20 08/13/20 08/13/20 10:51 12:29 12:29 WBC RBC Hgb Hct MCV MCH MCHC RDW Plt Count Lymph % (Auto) Anderson % (Auto) Lymph # (Auto) Seg Neutrophils % Seg Neuts % (Manual) Lymphocytes % (Manual) Lymphocytes # (Manual) PT INR APTT D-Dimer Potassium Chloride Carbon Dioxide BUN Creatinine Glucose POC Glucose 109 H Lactic Acid Calcium Ferritin Alkaline Phosphatase Troponin T 0.104 H* D C-Reactive Protein NT-Pro-B Natriuret Pep Albumin LDL Cholesterol Direct Hepatitis C Antibody Reactive A 08/13/20 08/13/20 08/13/20 14:13 23:15 Unknown WBC RBC Hgb Hct MCV MCH MCHC RDW Plt Count Lymph % (Auto) Anderson % (Auto) Lymph # (Auto) Seg Neutrophils % Seg Neuts % (Manual) Lymphocytes % (Manual) Lymphocytes # (Manual) PT 21.7 H INR 1.85 H APTT 41.7 H D-Dimer Potassium Chloride Carbon Dioxide BUN Creatinine Glucose POC Glucose 116 H Lactic Acid 2.60 H* Calcium Ferritin Alkaline Phosphatase Troponin T C-Reactive Protein NT-Pro-B Natriuret Pep Albumin LDL Cholesterol Direct Hepatitis C Antibody 08/14/20 08/14/20 08/14/20 04:13 04:13 04:13 WBC RBC 3.35 L Hgb 11.0 L Hct 32.8 L MCV 98 H MCH 33 H MCHC RDW 16.2 H Plt Count 63 L Lymph % (Auto) 7.0 L Anderson % (Auto) 8.2 H Lymph # (Auto) 0.4 L Seg Neutrophils % 84.6 H Seg Neuts % (Manual) Lymphocytes % (Manual) Lymphocytes # (Manual) PT 15.8 H INR 1.23 H APTT D-Dimer Potassium Chloride Carbon Dioxide BUN Creatinine Glucose POC Glucose Lactic Acid 2.40 H* Calcium Ferritin Alkaline Phosphatase Troponin T C-Reactive Protein NT-Pro-B Natriuret Pep Albumin LDL Cholesterol Direct Hepatitis C Antibody 08/14/20 08/14/20 08/14/20 04:13 11:55 16:36 WBC RBC Hgb Hct MCV MCH MCHC RDW Plt Count Lymph % (Auto) Anderson % (Auto) Lymph # (Auto) Seg Neutrophils % Seg Neuts % (Manual) Lymphocytes % (Manual) Lymphocytes # (Manual) PT INR APTT D-Dimer Potassium Chloride Carbon Dioxide BUN 31 H Creatinine 4.9 H Glucose 104 H POC Glucose 125 H 125 H Lactic Acid Calcium Ferritin Alkaline Phosphatase Troponin T C-Reactive Protein NT-Pro-B Natriuret Pep Albumin LDL Cholesterol Direct Hepatitis C Antibody 08/14/20 08/15/20 08/15/20 21:06 05:43 05:43 WBC 3.9 L RBC 3.28 L Hgb 10.9 L Hct 31.6 L MCV 97 H MCH 33 H MCHC 35 H RDW 15.7 H Plt Count 76 L Lymph % (Auto) Anderson % (Auto) 14.2 H Lymph # (Auto) 0.7 L Seg Neutrophils % Seg Neuts % (Manual) Lymphocytes % (Manual) Lymphocytes # (Manual) PT INR APTT D-Dimer Potassium 3.5 L Chloride Carbon Dioxide BUN 30 H Creatinine 4.2 H Glucose POC Glucose 198 H Lactic Acid Calcium Ferritin Alkaline Phosphatase Troponin T C-Reactive Protein NT-Pro-B Natriuret Pep Albumin LDL Cholesterol Direct Hepatitis C Antibody 08/15/20 08/15/20 08/16/20 08:15 17:18 13:44 WBC RBC Hgb Hct MCV MCH MCHC RDW Plt Count Lymph % (Auto) Anderson % (Auto) Lymph # (Auto) Seg Neutrophils % Seg Neuts % (Manual) Lymphocytes % (Manual) Lymphocytes # (Manual) PT INR APTT D-Dimer Potassium Chloride Carbon Dioxide BUN Creatinine Glucose POC Glucose 113 H 108 H 120 H Lactic Acid Calcium Ferritin Alkaline Phosphatase Troponin T C-Reactive Protein NT-Pro-B Natriuret Pep Albumin LDL Cholesterol Direct Hepatitis C Antibody Allied health notes reviewed: RT
[2020-08-17 14:35] VITALS: BP 116/73
[2020-08-17 16:49] LABS: ABG Base Excess 3.7 mmol/L (-2.0-3.0); ABG HCO3 27.1 mmol/L (20.0-26.0); ABG Methemoglobin 0.7 % (0.0-1.5); ABG Oxygen Saturation 86.9 % (95.0-99.0); ABG PH 7.483 pH Units (7.350-7.450); ABG PO2 50.2 mm Hg (80.0-90.0)
== END 2020-08-17 17:54 | disposition home or self-care (01) | DRG 871 ==
LOC: ED 23:07 → CC1 08-13 01:43 → 4A 08-15 17:23
PROVIDERS: ADMIT Internal Medicine Geriatric Medicine; ATTEND Internal Medicine
PROC: 5A1935Z Respiratory Ventilation, Less than 24 Consecutive Hours (ICD-10-PCS; principal; 2020-08-13)
PROC: 5A1D70Z Performance of Urinary Filtration, Intermittent, Less than 6 Hours Per Day (ICD-10-PCS; 2020-08-13)
PROC: 5A1D70Z Performance of Urinary Filtration, Intermittent, Less than 6 Hours Per Day (ICD-10-PCS; 2020-08-14)
PROC: 5A1D70Z Performance of Urinary Filtration, Intermittent, Less than 6 Hours Per Day (ICD-10-PCS; 2020-08-15)
PROC: 5A1D70Z Performance of Urinary Filtration, Intermittent, Less than 6 Hours Per Day (ICD-10-PCS; 2020-08-17)
DX: A41.9 Sepsis, unspecified organism (principal); J18.9 Pneumonia, unspecified organism; J96.01 Acute respiratory failure with hypoxia; N18.6 End stage renal disease; I21.A1 Myocardial infarction type 2; R65.21 Severe sepsis with septic shock; E87.2 Acidosis; Z53.29 Procedure and treatment not carried out because of patient's decision for other reasons; I48.19 Other persistent atrial fibrillation; I48.92 Unspecified atrial flutter; R64 Cachexia; D69.6 Thrombocytopenia, unspecified; R04.2 Hemoptysis; I50.9 Heart failure, unspecified; I13.2 Hypertensive heart and chronic kidney disease with heart failure and with stage 5 chronic kidney disease, or end stage renal disease; J91.8 Pleural effusion in other conditions classified elsewhere; I25.10 Atherosclerotic heart disease of native coronary artery without angina pectoris; D61.818 Other pancytopenia; I34.0 Nonrheumatic mitral (valve) insufficiency; Z20.828 Contact with and (suspected) exposure to other viral communicable diseases; I07.1 Rheumatic tricuspid insufficiency; I42.0 Dilated cardiomyopathy; Z99.2 Dependence on renal dialysis; Z99.11 Dependence on respirator [ventilator] status; Z79.899 Other long term (current) drug therapy; Z68.23 Body mass index [BMI] 23.0-23.9, adult
CPT/HCPCS: 36415; 71045; 80048; 80053; 80061; 80074; 80307; 81001; 82140; 82728; 82803; 82962; 83615; 83880; 84145; 84484; 85007; 85025; 85379; 85610; 85730; 86140; 87040; 87641; 90732; 93005; 93306; 94660; 94760; 96365; 96366; 96367; 96375; 99292; G0378; J0692; J1644; J7030; J7040; P9047; U0003

== ENCOUNTER 2021-05-13 19:34 | Emergency (ER) | payer MEDICARE ==
[2021-05-13] MEDS ORDERED: SODIUM CHLORIDE 0.9% 500 ML 500 ML IV ONE (20:24)
[2021-05-13 21:08] LABS: Hematocrit 42.6 % (35.5-45.6); Hemoglobin 14.6 gm/dl (11.8-15.2); Mean Corpuscular HGB Conc 34 % (32-34); Mean Corpuscular Volume 97 fl (84-94); Red Cell Distribution Width 15.3 % (13.2-15.2)
[2021-05-13 21:09] LABS: Platelet Count 84 K/mm3 (140-440)
[2021-05-13 21:12] LABS: Calcium 8.3 mg/dL (8.4-10.2)
--- NOTE | 2021-05-13 21:26 | Emergency Department Report ---
ED Syncope HPI - General Chief Complaint: Syncope Stated Complaint: Syncope Time Seen by Provider: 05/13/21 20:19 - History of Present Illness Initial Comments: 66-year-old male, history of ESRD, presents to ED following syncopal episode at home. Patient went to dialysis today. He states that at the end of dialysis his blood pressure was low, he is unsure of the exact reading. Patient states he feels as though they may have taken too much fluid off of him at dialysis. Patient had a syncopal episode after arriving home. Patient states he ate breakfast before dialysis and had a Nutrigrain bar while in dialysis. Timing/Prior Episodes: single episode today Precipitating Factors: Positive: lightheadedness Context: standing Loss of Consciousness: brief (seconds) Current Symptoms: back to normal. denies: chest pain, headache - Related Data Allergies/Adverse Reactions: Allergies No Known Allergies Allergy (Unverified 08/12/20 23:21) Home Medications: Ambulatory Orders Aspirin EC [Ecotrin] 325 mg PO QDAY #30 tablet 08/17/20 Famotidine [Pepcid] 10 mg PO DAILY #30 tablet 08/17/20 Midodrine [Proamatine] 5 mg PO TID #90 tablet 08/17/20 carvediloL [Coreg] 3.125 mg PO BID #60 tablet 08/17/20 ED Review of Systems ROS: Stated complaint: SEIZURE Other details as noted in HPI Comment: All other systems reviewed and negative Constitutional: denies: chills, fever Respiratory: denies: shortness of breath Cardiovascular: denies: chest pain, palpitations Gastrointestinal: denies: abdominal pain, nausea, vomiting, diarrhea Neurological: denies: headache ED Past Medical Hx - Past Medical History Hx Hypertension: Yes Hx Heart Attack/AMI: Yes Hx Congestive Heart Failure: Yes Hx Diabetes: No Hx Liver Disease: Yes Hx Renal Disease: Yes (esrd) Hx Asthma: Yes Hx COPD: Yes - Surgical History Additional Surgical History: Dialysis fistula - Social History Smoking Status: Current Every Day Smoker Substance Use Type: Alcohol - Medications Home Medications: Home Medications Medication Instructions Recorded Confirmed Last Taken Type Aspirin EC [Ecotrin] 325 mg PO QDAY #30 tablet 08/17/20 Unknown Rx Famotidine [Pepcid] 10 mg PO DAILY #30 tablet 08/17/20 Unknown Rx Midodrine [Proamatine] 5 mg PO TID #90 tablet 08/17/20 Unknown Rx carvediloL [Coreg] 3.125 mg PO BID #60 tablet 08/17/20 Unknown Rx ED Physical Exam - General Limitations: No Limitations General appearance: alert, in no apparent distress - Head Head exam: Present: atraumatic, normocephalic - Eye Eye exam: Present: normal appearance, EOMI - ENT ENT exam: Present: mucous membranes moist - Neck Neck exam: Present: normal inspection - Respiratory Respiratory exam: Present: normal lung sounds bilaterally. Absent: respiratory distress - Cardiovascular Cardiovascular Exam: Present: regular rate, normal rhythm - GI/Abdominal GI/Abdominal exam: Present: soft. Absent: distended, tenderness - Extremities Exam Extremities exam: Present: normal inspection - Neurological Exam Neurological exam: Present: alert, oriented X3, CN II-XII intact. Absent: motor sensory deficit - Psychiatric Psychiatric exam: Present: normal affect, normal mood - Skin Skin exam: Present: warm, dry, intact, normal color ED Course Vital Signs 05/13/21 05/13/21 05/13/21 20:02 20:16 20:18 Temperature 97.8 F Pulse Rate 77 80 78 Respiratory 21 18 17 Rate Blood Pressure 116/68 116/68 O2 Sat by Pulse 100 97 98 Oximetry 05/13/21 05/13/21 05/13/21 20:30 20:46 20:52 Temperature Pulse Rate 91 H 70 80 Respiratory 20 12 Rate Blood Pressure 105/69 118/76 O2 Sat by Pulse 91 28 L Oximetry 05/13/21 05/13/21 05/13/21 21:00 21:16 21:30 Temperature Pulse Rate 86 81 77 Respiratory 13 16 15 Rate Blood Pressure 117/81 117/81 117/81 O2 Sat by Pulse 75 L 100 Oximetry 05/13/21 05/13/21 21:46 22:00 Temperature Pulse Rate 84 86 Respiratory 18 16 Rate Blood Pressure 117/81 138/78 O2 Sat by Pulse 100 100 Oximetry ED Medical Decision Making - Lab Data Result diagrams: 05/13/21 20:42 05/13/21 20:42 - EKG Data -: EKG Interpreted by [facility] EKG shows normal: sinus rhythm, QRS complexes, ST-T waves Rate: normal - EKG Data Interpretation: no acute changes, LVH, other (prolonged [place] and QT, LAFB, ) - Medical Decision Making 66-year-old male presents to ED following syncopal episode. Patient was dialyzed today. He reports his blood pressure was low upon leaving the dialysis center. Patient then went home and passed out. Patient is orthostatic vitals here in the ED. He was given small fluid bolus. EKG is unremarkable. Glucose slightly low on labs, so he was given a meal tray. Patient is feeling much better at this time requesting to leave. Will discharge home, return precautions given. - Differential Diagnosis Dehydration, arrhythmia, hypoglycemia Critical care attestation.: If time is entered above; I have spent that time in minutes in the direct care of this critically ill patient, excluding procedure time. ED Disposition Clinical Impression: Orthostatic hypotension, Syncope Disposition: DC-01 TO HOME OR SELFCARE Is pt being admited?: No Condition: Stable Instructions: Syncope, [id number], Syncope (ED) Referrals: PRIMARY CARE, [Primary Care Provider] - 3-5 Days Time of Disposition: 21:51
[2021-05-13 22:03] VITALS: BP 138/78
--- NOTE | 2021-05-16 09:11 | Electrocardiograph Report ---
[facility] Test Date: 2021-05-13 Test Time: 20:49:59 Pat Name: OFELIA THOMASON Department: Room: Gender: M Food Safety Specialist: Brandi PARKER : 1955 Requested By: BRET FOUNTAIN Order Number: [id number] Reading MD: Artemio Byers Measurements Intervals [place] Rate: 80 P: 37 VA: 223 QRS: -49 QRSD: 113 T: 45 QT: 439 QTc: 506 Interpretive Statements Sinus rhythm Atrial premature complex Prolonged VA interval Left anterior fascicular block Probable left ventricular hypertrophy Prolonged QT interval No previous ECG available for comparison Electronically Signed On 05-16-2021 9:11:38 EDT by Artemio Byers
== END 2021-05-13 22:27 | disposition home or self-care (01) ==
LOC: ED 19:34
DX: I95.1 Orthostatic hypotension (principal); I11.0 Hypertensive heart disease with heart failure; I50.9 Heart failure, unspecified; I25.2 Old myocardial infarction; J44.9 Chronic obstructive pulmonary disease, unspecified; F17.200 Nicotine dependence, unspecified, uncomplicated; Z98.890 Other specified postprocedural states; Z79.899 Other long term (current) drug therapy
CPT/HCPCS: 36415; 80048; 85025; 93005; 96360; 99284; J7040

== ENCOUNTER 2021-09-18 10:41 | Outpatient (CLI) | payer MEDICARE ==
--- NOTE | 2021-09-18 17:25 | Cat Scan Report ---
CT ORBITS with and without IV contrast. HISTORY: Optic atrophy. COMPARISON: None. TECHNIQUE: Axial images of the orbits were obtained. Coronal reformats were generated. CONTRAST: 100 cc of Omnipaque 300 FINDINGS: Facial bones: There is depression of the right orbital floor along with defect involving medial orbit al wall which is most likely related to previous trauma. There is milder angulation of the right infe rior rectus muscle without evidence of entrapment. The facial bones otherwise appear intact. Paranasal sinuses: The patient is status post left antrectomy. The paranasal sinuses are pneumatized without air-fluid levels at. There is mild deviation of the nasal septum toward the left. Orbits: The optic nerve sheaths appear symmetric and appropriate in caliber bilaterally. However, the optic nerves are within the sheaths are not well delineated on this CT and correlation be needed reg arding the history of "optic atrophy". MRI would be more sensitive for measuring the optic nerves if there is no contraindication. The optic globes appear to demonstrate appropriate size and configuration. No definitive enhancing or bital lesions are appreciated.. The lacrimal glands appear unremarkable. Visualized images of the intracranial space: No significant abnormality. Additional findings: None. IMPRESSION: 1. There is depression of the right orbital floor and a focal defect involving medial right orbital wall likely related to previous trauma as detailed above. Otherwise, the CT of the orbits appears un remarkable and correlation would be needed given history of optic atrophy as described. Signer Name: Triston Alcocer MD Signed: 09/18/2021 5:20 PM Workstation Name: [id number]
== END 2021-09-18 10:42 | disposition home or self-care (01) ==
LOC: CT 10:41
PROVIDERS: ATTEND Ophthalmology
DX: J34.2 Deviated nasal septum (principal)
CPT/HCPCS: 36415; 70482; 82565; 84520; Q9967